=== PATIENT | female | born 1975 | race Caucasian/White ===

== ENCOUNTER → 2017-04-08 | Outpatient (CLI) | payer OTHER ==
[~2017-04-08] MED LIST: ERGO1CAP35 PO; PROP80CA PO; SUMA100T16 PO; TOPI25TA10 PO
--- NOTE | 2017-04-08 10:36 | DIAGNOSTIC IMAGING REPORT ---
MRI OF THE BRAIN WITHOUT CONTRAST CLINICAL HISTORY: Chronic headaches COMPARISON STUDY: None. FINDINGS: Sagittal T1, axial diffusion, proton density and T2 weighted axial, coronal FLAIR, and axial T1-weighted images were acquired. No intra or extra-axial mass lesions are visualized Axial diffusion-weighted images reveal no evidence of acute or subacute infarction. There is no evidence of ventricular dilatation. Proton density T2-weighted and FLAIR images reveal a few punctate foci of increased signal within the white matter. This finding has been reported in patients with chronic headaches. There are no abnormal flow voids. IMPRESSION: With the exception of a few punctate foci of increased T2 and FLAIR signal within the white matter, no abnormalities are identified. Electronically signed by: Jose Maria Perez M.D. 04/08/2017 10:34 AM Dictated Date/Time: 04/08/2017 10:32 AM
== END | disposition home or self-care (01) ==
LOC: C.MRIBC 09:36
PROVIDERS: ATTEND Physician Assistant
DX: R05 Cough (principal)

== ENCOUNTER → 2017-06-09 | Outpatient (CLI) | payer OTHER ==
--- NOTE | 2017-06-09 15:20 | DIAGNOSTIC IMAGING REPORT ---
LEFT UPPER EXT JOINT WITHOUT CLINICAL HISTORY: PAIN IN L SHOULDER pain TECHNIQUE: Multiaxial MRI acquisition COMPARISON STUDY: None FINDINGS: Signal characteristics of the osseous structures are unremarkable throughout. Mild degenerative change of the articular services of the glenohumeral joint. Moderate tendinitis of the supraspinatus with evidence for a small partial tear at its anterior margin. No evidence for full-thickness rotator cuff tear. The infraspinatus and subscapularis tendons are unremarkable. Biceps tendon is intact. No abnormality of the glenoid labrum. IMPRESSION: 1. Mild supraspinatus tendinitis with a small partial thickness tear at its anterior margin. 2. No evidence for full-thickness rotator cuff tear. 3. Mild degenerative change articular services the glenohumeral joint. The above report was generated using voice recognition software. It may contain grammatical, syntax or spelling errors. Electronically signed by: Horacio Blackman M.D. 06/09/2017 3:19 PM Dictated Date/Time: 06/09/2017 3:15 PM
== END | disposition home or self-care (01) ==
LOC: C.MRI 13:54
PROVIDERS: ATTEND Family Medicine Sports Medicine
DX: M25.512 Pain in left shoulder (principal)

== ENCOUNTER → 2017-08-18 | Outpatient (CLI) | payer OTHER ==
[~2017-08-18] MED LIST changes: -ERGO1CAP35 PO
--- NOTE | 2017-08-18 16:53 | DIAGNOSTIC IMAGING REPORT ---
MRI THE RIGHT HIP NO CONTRAST CLINICAL HISTORY: Persistent right hip pain COMPARISON STUDY: 10/06/2015 FINDINGS: Imaging was performed in the sagittal, coronal, and axial planes. There are no areas of marrow replacement to indicate neoplasm. There are postsurgical changes of a lumbar spinal fusion. There is a new focus of subchondral marrow edema involving the right humeral head, consistent with a small focus of avascular necrosis. There is mild right hip cartilaginous thinning. There is no evidence of pathologic adenopathy. There are bilateral hemorrhagic ovarian follicles. There is no evidence of pathologic muscular edema. 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 Electronically signed by: Jose Maria Perez M.D. 08/18/2017 4:52 PM Dictated Date/Time: 08/18/2017 4:48 PM
== END | disposition home or self-care (01) ==
LOC: C.MRIBC 15:48
PROVIDERS: ATTEND Orthopaedic Surgery Sports Medicine
DX: M25.551 Pain in right hip (principal); M87.051 Idiopathic aseptic necrosis of right femur

== ENCOUNTER → 2018-05-23 | Outpatient (CLI) | payer OTHER ==
[~2018-05-23] MED LIST changes: +ADAL40KI SQ
--- NOTE | 2018-05-23 18:28 | DIAGNOSTIC IMAGING REPORT ---
L-SPINE FLEX/EXT BENDING MIN 6 HISTORY: 42 years-old Female LUMBO SACRAL SPINE acute low back pain with recent swelling injury COMPARISON: CT abdomen and pelvis 05/13/2016 TECHNIQUE: 6 views of the lumbar spine with flexion and extension. FINDINGS: There are 5 nonrib-bearing lumbar type vertebral segments present. No spondylolysis or spondylolisthesis. Prior laminectomy with discectomy and posterior interbody leander and screw fusion at L5-S1. No evidence of hardware complication. Minimal multilevel spondylitic spurring with mild facet arthrosis. No significant intervertebral disc space narrowing. There is unchanged satisfactory alignment in neutral, flexion and extension positioning. Moderate formed colonic stool and some densely noted. IMPRESSION: 1. No acute fracture or subluxation. 2. Prior laminectomy with discectomy and posterior interbody leander and screw fusion at L5-S1. 3. Satisfactory alignment seen in neutral, flexion and extension views. The above report was generated using voice recognition software. It may contain grammatical, syntax or spelling errors. Electronically signed by: Jr Sims M.D. 05/23/2018 6:27 PM Dictated Date/Time: 05/23/2018 6:24 PM
== END | disposition home or self-care (01) ==
LOC: C.RADBC 16:08
PROVIDERS: ATTEND Physician Assistant
DX: M54.5 Low back pain (principal); Z98.1 Arthrodesis status

== ENCOUNTER 2020-02-26 13:25 | Observation (INO) ==
[2020-02-26] MEDS ORDERED: ALBUT/IPRATROP 3MG/0.5MG NEB 3 ML VIAL NEB STA ×2 (14:09→16:45)
[2020-02-26] MEDS ORDERED: GI COCKTAIL ED USE PO ONE (14:12)
[2020-02-26] MEDS ORDERED: FAMOTIDINE 20MG/5ML IV PUSH IV STA (14:12)
--- NOTE | 2020-02-26 14:50 | Electrocardiogram Report ---
Test Reason : Blood Pressure : / mmHG Vent. Rate : 070 BPM Atrial Rate : 070 BPM P-R Int : 142 ms QRS Dur : 078 ms QT Int : 394 ms P-R-T Axes : 054 046 031 degrees QTc Int : 425 ms Poor data quality, interpretation may be adversely affected Normal sinus rhythm Abnormal ECG When compared with ECG of 12-MAR-2015 11:06, No significant change was found Confirmed by Ford Shaw ([id number]) on 02/26/2020 2:50:01 PM Referred By: Confirmed By:Ford Shaw
[2020-02-26 15:04] LABS: Basophils # (auto) 0.01 K/uL (0-0.2); Basophils % (auto) 0.1 %; Hematocrit (blood only) 41.8 % (37-47); Hemoglobin 14.5 g/dL (12.0-16.0); Immature Granulocytes # (auto) 0.03 K/uL (0.00-0.02); Immature Granulocytes % (auto) 0.3 %; Lymphocytes # (auto) 0.99 K/uL (1.2-3.4); Lymphocytes % (auto) 10.7 %; Mean Corpuscular Hemoglobin 31.5 pg (25-34); Mean Corpuscular Hgb Conc 34.7 g/dL (32-36); Mean Corpuscular Volume 90.9 fL (80-100); Monocytes # (auto) 0.11 K/uL (0.11-0.59); Monocytes % (auto) 1.2 %; Neutrophils # (auto) 8.12 K/uL (1.4-6.5); Neutrophils % (auto) 87.7 %; Platelet Count 241 K/uL (130-400); RDW Coefficient of Variation 13.5 % (11.5-14.5); RDW Standard Deviation 44.7 fL (36.4-46.3); White Blood Count 9.26 K/uL (4.8-10.8)
--- NOTE | 2020-02-26 15:09 | Emergency Department Note ---
History of Present Illness General Chief complaint: Shortness of Breath/Dyspnea Stated complaint: FEVER,SOB,COUGH Time Seen by Provider: 02/26/20 13:29 Source: patient Mode of arrival: ambulatory Limitations: no limitations History of Present Illness Provider complaint: sob, wheezing Onset (ago): day(s) 5 Pain Consistency: + colicky Maximum Pain Intensity: 3 Exacerbated By: + movement and + rest Associated symptoms: + cough and + shortness of breath; no chest pain, no fever/chills, no loss of appetite, no nausea/vomiting and no syncope Treatments prior to arrival: none This is a 44-year-old female with a history of ankylosing spondylitis who presents complaining of increased shortness of breath and wheezing. Patient states she initially began having mild upper respiratory symptoms 7 weeks ago. She states at that time she was tested for coronavirus and was negative. She states in the interim her symptoms have fluctuated. At times she would feel more flulike, at other times she had a sore throat and cough. Patient states mostly her cough has been nonproductive. Patient states when she talked to her family doctor last week due to the persistence of her symptoms they decided to start her on steroids and Tessalon Perles. When she called to follow-up with them today and told them that since starting those medications last week she has felt worse, they sent her for an outpatient chest x-ray and then advised her to come to the ER. Review of the outpatient chest x-ray that was in system was unremarkable. No evidence of effusions or infiltrate. Patient states there have been no other changes in her medications. No prior history of asthma and patient is not a smoker. Pt seen during a time of high acuity and national emergency pandemic while wearing PPE. Home Medications Home Medications Medication Instructions Recorded Confirmed Type adalimumab 40 mg/0.4 mL 40 mg SQ Q14D 07/11/18 02/26/20 History subcutaneous syringe kit ondansetron 4 mg disintegrating 4 mg PO BID PRN #30 tab 11/12/19 02/26/20 Rx tablet fremanezumab-vfrm 225 mg/1.5 mL 225 mg SQ .COMPLEX 30 Days #1.5 ml 02/18/20 02/26/20 Rx subcutaneous syringe propranolol 80 mg capsule,24 80 mg PO DAILY #30 cap 02/18/20 02/26/20 Rx hr,extended release topiramate 50 mg tablet 50 mg PO .COMPLEX 30 Days #90 tab 02/18/20 02/26/20 Rx zolmitriptan 5 mg nasal spray 1 sprays INTNAS Q2H PRN #6 ea 02/18/20 02/26/20 Rx benzonatate 100 mg PO TID PRN 02/26/20 02/26/20 History prednisone 40 mg PO DAILY 02/26/20 02/26/20 History Allergies Allergy/AdvReac Type Severity Reaction Status Date / Time citalopram [From Celexa] Allergy Unknown Unknown Verified 02/26/20 23:11 indomethacin Allergy Unknown RASH Verified 02/26/20 14:29 hydrocodone AdvReac Intermediate NEUROTIC Verified 02/26/20 14:29 procaine AdvReac Unknown SEVERE N/V Verified 02/26/20 14:29 tramadol AdvReac Unknown neurotic Verified 02/26/20 14:29 Past Med/Surg History Medical History (Updated 02/28/20 @ 04:07 by Lesli Jimenez DO) Ankylosing spondylitis (Chronic) Cauda equina syndrome (Resolved) Lumbar disc herniation (Acute) Lumbar radicular pain (Chronic) Migraine (Chronic) Surgical History (Updated 02/26/20 @ 18:49 by Giles Barnes) H/O rotator cuff surgery History of lumbosacral spine surgery (Chronic) Status post hip surgery right Family History (Updated 02/26/20 @ 18:50 by Giles Barnes) Father , age 50 Lung cancer Mother COPD (chronic obstructive pulmonary disease) Diabetes Denies family history of Asthma Social History (Updated 02/26/20 @ 18:51 by Giles Barnes) Preferred Language: Serbian Communication Ability: Effective Beliefs That Will Affect Care: None marital status: Current Living Situation: Spouse and Family current occupational 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 Other Information That Helps Us Care for You: No other: 2 kids Feels Safe at Home: Yes Safety Concerns: Feels Safe At This Time Smoking Status: Never smoker Hx Alcohol Use: No Hx Substance Use: No Review of Systems See HPI for pertinent positives & negatives. and A total of 10 systems reviewed and were otherwise negative Physical Exam Vital Signs Vital Signs - 24 hr 02/26/20 19:00 Pulse Rate 67 Pulse Rate from SpO2 Sensor 68 Respiratory Rate 20 Blood Pressure 112/83 Blood Pressure Mean 89 Pulse Oximetry 98 GENERAL: alert, well appearing, well nourished, no distress, non-toxic EARS: TMs clear bilaterally, no edema along the canals EYE EXAM: normal conjunctiva, PERRL and EOM's grossly intact OROPHARYNX: no exudate, no erythema, lips, buccal mucosa, and tongue normal and mucous membranes are moist NECK: supple, no nuchal rigidity, no adenopathy, non-tender LUNGS: Clear to auscultation. Normal chest wall mechanics, no w/r/r HEART: no murmurs, S1 normal and S2 normal ABDOMEN: abdomen soft, non-tender, normo-active bowel sounds, no masses, no rebound or guarding. BACK: Back is symmetrical on inspection and there is no deformity, no midline tenderness, no CVA tenderness. SKIN: no rashes and no bruising UPPER EXTREMITIES: upper extremities are grossly normal. FROM, nml pulses b/l. LOWER EXTREMITIES: No pitting edema. FROM, nml pulses b/l. NEURO EXAM: Normal sensorium, cranial nerves II-XII grossly intact, normal speech, no facial droop, no gross weakness of arms, no gross weakness of legs. No ataxia, normal gait. Gross sensation intact. Course Course 152: Patient updated on results. Patient states she still feels short of breath, and as though she is wheezing. 1741: Patient states still feeling short of breath despite second nebulizer treatment. IV fluids added as patient states she has not had much to eat or drink today, and I suspect her slightly low blood pressure is also in part due to the magnesium given. Patient is uncomfortable going home given persistent sense of shortness of breath despite negative evaluation so far. 174: Case discussed with Dr. Barnes [facility] hospitalist service. Administered Medications Albuterol (Ventolin Hfa) 2 puffs INH Q4R BLACK Stop: 03/27/20 22:59 Last Admin: 02/27/20 11:23 Dose: 2 puffs Documented by: [id number] Admin: 02/27/20 07:04 Dose: 2 puffs Documented by: [id number] Admin: 02/27/20 03:31 Dose: 2 puffs Documented by: [id number] Admin: 02/26/20 23:19 Dose: 2 puffs Documented by: [id number] Benzonatate (Tessalon Perle) 100 mg PO TID BLACK Stop: 03/27/20 20:59 Last Admin: 02/27/20 19:48 Dose: 100 mg Documented by: [id number] Admin: 02/27/20 14:40 Dose: 100 mg Documented by: [id number] Admin: 02/27/20 08:10 Dose: 100 mg Documented by: [id number] Admin: 02/26/20 21:42 Dose: 100 mg Documented by: [id number] Cefdinir (Omnicef Cap) 300 mg PO BID BLACK Stop: 03/07/20 21:14 Last Admin: 02/27/20 19:48 Dose: 300 mg Documented by: [id number] Admin: 02/27/20 08:11 Dose: 300 mg Documented by: [id number] Admin: 02/26/20 21:42 Dose: 300 mg Documented by: [id number] Enoxaparin Sodium (Lovenox) 40 mg SQ Q24H [facility] Stop: 03/27/20 20:31 Last Admin: 02/27/20 19:47 Dose: 40 mg Documented by: [id number] Admin: 02/26/20 21:42 Dose: 40 mg Documented by: [id number] Miscellaneous (Order Awaiting Action) 1 ea N/A QS [facility] Stop: 03/28/20 00:00 Last Admin: 02/28/20 00:46 Dose: Not Given Documented by: [id number] Admin: 02/27/20 14:40 Dose: Not Given Documented by: [id number] Admin: 02/27/20 08:10 Dose: Not Given Documented by: [id number] Admin: 02/26/20 23:30 Dose: Not Given Documented by: [id number] Propranolol HCl (Inderal La) 80 mg PO DAILY BLACK Stop: 03/28/20 08:59 Last Admin: 02/27/20 08:11 Dose: 80 mg Documented by: [id number] Sucralfate (Carafate) 1 gm PO QID BLACK Stop: 03/28/20 16:59 Last Admin: 02/27/20 19:51 Dose: 1 gm Documented by: [id number] Admin: 02/27/20 16:46 Dose: 1 gm Documented by: [id number] Topiramate (Topamax) 50 mg PO DAILY [facility] Stop: 03/28/20 08:59 Last Admin: 02/27/20 08:11 Dose: 50 mg Documented by: [id number] Topiramate (Topamax) 100 mg PO HS BLACK Stop: 03/27/20 20:59 Last Admin: 02/27/20 19:49 Dose: 100 mg Documented by: [id number] Admin: 02/26/20 21:42 Dose: 100 mg Documented by: [id number] Discontinued Medications Al Hydrox/Mg Hydrox/Simethicone () 1 dose PO ONE ONE Stop: 02/26/20 14:13 Last Admin: 02/26/20 14:43 Dose: 1 dose Documented by: [id number] Albuterol (Duoneb) 3 ml NEB NOW STA Stop: 02/26/20 14:10 Last Admin: 02/26/20 14:36 Dose: 3 ml Documented by: [id number] Albuterol (Duoneb) 3 ml NEB NOW STA Stop: 02/26/20 16:46 Last Admin: 02/26/20 17:08 Dose: 3 ml Documented by: [id number] Famotidine (Pepcid 20mg Iv Push) 20 mg IV ONE STA Stop: 02/26/20 14:13 Last Admin: 02/26/20 14:43 Dose: 20 mg Documented by: [id number] Guaifenesin/Codeine Phosphate (Robitussin-Ac Sugar Free) 5 ml PO Q6H PRN PRN Reason: Cough Stop: 03/27/20 20:31 Last Admin: 02/27/20 11:37 Dose: 5 ml Documented by: [id number] Admin: 02/27/20 03:48 Dose: 5 ml Documented by: [id number] Admin: 02/26/20 21:42 Dose: 5 ml Documented by: [id number] Guaifenesin/Codeine Phosphate (Robitussin-Ac Sugar Free) 10 ml PO Q6H PRN PRN Reason: Cough Stop: 03/27/20 20:31 Last Admin: 02/27/20 16:46 Dose: 10 ml Documented by: [id number] Magnesium Sulfate/Dextrose (Magnesium Sulfate / D5w) 1 gm in 100 mls @ 100 mls/hr IV ONE ONE Stop: 02/26/20 17:44 Last Infusion: 02/26/20 18:13 Dose: 0 mls/hr Documented by: [id number] Admin: 02/26/20 17:07 Dose: 100 mls/hr Documented by: [id number] Medical Decision Making Differential Diagnosis Differential diagnoses includes but is not limited to pneumonia, bronchitis, COPD/Asthma exacerbation, pneumothorax, pulmonary embolism, congestive heart failure, acute coronary syndrome Medical Records Attestation: I reviewed the patient's medical records. Home Medications Current Medication List: was personally reviewed by me Laboratory Data Attestation: I reviewed the patient's lab results. Result diagrams: 02/26/20 14:35 02/26/20 14:35 Lab Results 02/26/20 02/26/20 02/26/20 Range/Units 14:35 14:35 14:35 WBC 9.26 (4.8-10.8) K/uL RBC 4.60 (4.2-5.4) M/uL Hgb 14.5 (12.0-16.0) g/dL Hct 41.8 (37-47) % MCV 90.9 (80-100) fL MCH 31.5 (25-34) pg MCHC 34.7 (32-36) g/dL RDW Std Deviation 44.7 (36.4-46.3) fL RDW Coeff of Tracy 13.5 (11.5-14.5) % Plt Count 241 (130-400) K/uL MPV 10.0 (7.4-10.4) fL Immature Gran % (Auto) 0.3 % Neut % (Auto) 87.7 % Lymph % (Auto) 10.7 % [place] % (Auto) 1.2 % Eos % (Auto) 0.0 % Baso % (Auto) 0.1 % Immature Gran # (Auto) 0.03 H (0.00-0.02) K/uL Neut # (Auto) 8.12 H (1.4-6.5) K/uL Lymph # (Auto) 0.99 L (1.2-3.4) K/uL [place] # (Auto) 0.11 (0.11-0.59) K/uL Eos # (Auto) 0.00 (0-0.5) K/uL Baso # (Auto) 0.01 (0-0.2) K/uL D-Dimer 360 (0-500) ug/L FEU Sodium 139 (136-145) mmol/L Potassium 3.8 (3.5-5.1) mmol/L Chloride 112 H (98-107) mmol/L Carbon Dioxide 18 L (21-32) mmol/L Anion Gap 10.0 (3-11) BUN 21 H (7-18) mg/dl Creatinine 0.76 (0.6-1.2) mg/dl Est Cr Clr Drug Dosing 108.7 ml/min Est GFR ( Amer) 111.4 Est GFR (Non-Af Amer) 96.1 BUN/Creatinine Ratio 27.9 H (10-20) Glucose 118 H (70-99) mg/dl Calcium 8.7 (8.5-10.1) mg/dl Magnesium 2.2 (1.8-2.4) mg/dl Total Bilirubin 0.3 (0.2-1) mg/dl AST 18 (15-37) U/L ALT 35 (12-78) U/L Alkaline Phosphatase 80 (45-117) U/L Troponin I < 0.015 (0-0.045) ng/ml C-Reactive Protein < 0.29 (0-0.29) mg/dl NT-Pro-B Natriuret Pep 120 (0-450) pg/ml Total Protein 7.7 (6.4-8.2) gm/dl Albumin 4.0 (3.4-5.0) gm/dl Globulin 3.7 (2.5-4.0) gm/dl Albumin/Globulin Ratio 1.1 (0.9-2) Lipase 99 (73-393) U/L HCG, Qual (Negative) Adenovirus (PCR) (NotDetected) B. pertussis DNA (PCR) (NotDetected) B.parapertussis DNA PCR (NotDetected) C. pneumoniae DNA (PCR) (NotDetected) Coronavirus OC43 (PCR) (NotDetected) Coronavirus HKU1 (PCR) (NotDetected) Coronavirus 229E (PCR) (NotDetected) Coronavirus NL63 (PCR) (NotDetected) Human Metapneumovir PCR (NotDetected) Influenza Type A (PCR) (NotDetected) Influenza Type B (PCR) (NotDetected) M. pneumoniae (PCR) (NotDetected) Parainfluenza 1 (PCR) (NotDetected) Parainfluenza 2 (PCR) (NotDetected) Parainfluenza 3 (PCR) (NotDetected) Parainfluenza 4 (PCR) (NotDetected) RSV (PCR) (NotDetected) Entero/Rhino (PCR) (NotDetected) 02/26/20 02/26/20 Range/Units 14:35 14:55 WBC (4.8-10.8) K/uL RBC (4.2-5.4) M/uL Hgb (12.0-16.0) g/dL Hct (37-47) % MCV (80-100) fL MCH (25-34) pg MCHC (32-36) g/dL RDW Std Deviation (36.4-46.3) fL RDW Coeff of Tracy (11.5-14.5) % Plt Count (130-400) K/uL MPV (7.4-10.4) fL Immature Gran % (Auto) % Neut % (Auto) % Lymph % (Auto) % [place] % (Auto) % Eos % (Auto) % Baso % (Auto) % Immature Gran # (Auto) (0.00-0.02) K/uL Neut # (Auto) (1.4-6.5) K/uL Lymph # (Auto) (1.2-3.4) K/uL [place] # (Auto) (0.11-0.59) K/uL Eos # (Auto) (0-0.5) K/uL Baso # (Auto) (0-0.2) K/uL D-Dimer (0-500) ug/L FEU Sodium (136-145) mmol/L Potassium (3.5-5.1) mmol/L Chloride (98-107) mmol/L Carbon Dioxide (21-32) mmol/L Anion Gap (3-11) BUN (7-18) mg/dl Creatinine (0.6-1.2) mg/dl Est Cr Clr Drug Dosing ml/min Est GFR ( Amer) Est GFR (Non-Af Amer) BUN/Creatinine Ratio (10-20) Glucose (70-99) mg/dl Calcium (8.5-10.1) mg/dl Magnesium (1.8-2.4) mg/dl Total Bilirubin (0.2-1) mg/dl AST (15-37) U/L ALT (12-78) U/L Alkaline Phosphatase (45-117) U/L Troponin I (0-0.045) ng/ml C-Reactive Protein (0-0.29) mg/dl NT-Pro-B Natriuret Pep (0-450) pg/ml Total Protein (6.4-8.2) gm/dl Albumin (3.4-5.0) gm/dl Globulin (2.5-4.0) gm/dl Albumin/Globulin Ratio (0.9-2) Lipase (73-393) U/L HCG, Qual Negative (Negative) Adenovirus (PCR) Not Detected (NotDetected) B. pertussis DNA (PCR) Not Detected (NotDetected) B.parapertussis DNA PCR Not Detected (NotDetected) C. pneumoniae DNA (PCR) Not Detected (NotDetected) Coronavirus OC43 (PCR) Not Detected (NotDetected) Coronavirus HKU1 (PCR) Not Detected (NotDetected) Coronavirus 229E (PCR) Not Detected (NotDetected) Coronavirus NL63 (PCR) Not Detected (NotDetected) Human Metapneumovir PCR Not Detected (NotDetected) Influenza Type A (PCR) Not Detected (NotDetected) Influenza Type B (PCR) Not Detected (NotDetected) M. pneumoniae (PCR) Not Detected (NotDetected) Parainfluenza 1 (PCR) Not Detected (NotDetected) Parainfluenza 2 (PCR) Not Detected (NotDetected) Parainfluenza 3 (PCR) Not Detected (NotDetected) Parainfluenza 4 (PCR) Not Detected (NotDetected) RSV (PCR) Not Detected (NotDetected) Entero/Rhino (PCR) Not Detected (NotDetected) MDM Narrative An order was placed for continuous cardiac monitoring. The monitor shows a rate of 70 with normal sinus rhythm. Patient presents complaining of worsening shortness of breath over the last 6 to 7 weeks despite outpatient treatments and negative coronavirus testing. Unfortunately patient does have a history of ankylosing spondylitis and takes Humira injections. Patient also had recent steroids. In light of this I am concerned for any but atypical presentation of infection or fungal infection due to her immunocompromised status. Patient had minimal improvement with use of nebulizer treatments here. Patient's other labs reassuring. I did review the outpatient chest x-ray which was read by radiology as no acute process, no evidence of infiltrate or effusion. Patient was made aware of all results. Due to my concern to discuss case with the hospitalist who was in agreement and evaluated the patient at bedside. Patient was hemodynamically stable throughout. Patient had no improvement with possible GI medications for component of potentially GERD in addition contributing to her bronchospasm and cough. Patient is otherwise fully vaccinated. Bio fire and repeat coronavirus testing also sent as a precaution due to the current pandemic. Patient was made aware of all results and in agreement with plan. Impression & Plan Dyspnea, Cough Discharge Plan Visit Data *Final* Discharge Date/Time: 02/26/20 20:05 Chief Complaint: Shortness of Breath/Dyspnea Stated Complaint: FEVER,SOB,COUGH ED Provider: Lesli Jimenez Discharge Problem: Dyspnea, Cough Patient Disposition: Admitted As Inpatient Condition: Fair Discharge Instructions Interventions: ED Discharge Assessment Last Done: 02/26/20 20:05 Discharge Problem: Dyspnea Qualifiers: Dyspnea type: shortness of breath Qualified Code(s): R06.02 - Shortness of breath
[2020-02-26 15:17] LABS: D Dimer 360 ug/L FEU (0-500)
[2020-02-26 15:26] LABS: Alanine Aminotransferase 35 U/L (12-78); Aspartate Aminotransferase 18 U/L (15-37); BUN Creatinine Ratio 27.9 (10-20); Blood Urea Nitrogen 21 mg/dl (7-18); C Reactive Protein < 0.29 mg/dl (0-0.29); Calcium 8.7 mg/dl (8.5-10.1); Carbon Dioxide 18 mmol/L (21-32); Chloride 112 mmol/L (98-107); Creatinine Clr Calc Pharmacy 108.7 ml/min; Est GFR (African American) 111.4; Est GFR (Non-African American) 96.1; Glucose 118 mg/dl (70-99); Lipase 99 U/L (73-393); Magnesium 2.2 mg/dl (1.8-2.4); Potassium 3.8 mmol/L (3.5-5.1); Sodium 139 mmol/L (136-145)
[2020-02-26 15:29] LABS: Albumin Globulin Ratio 1.1 (0.9-2); Alkaline Phosphatase 80 U/L (45-117); Bilirubin,Total 0.3 mg/dl (0.2-1); Globulin 3.7 gm/dl (2.5-4.0); NT Pro B Type Natriuretic Pept 120 pg/ml (0-450); Total Protein 7.7 gm/dl (6.4-8.2); Troponin I < 0.015 ng/ml (0-0.045)
[2020-02-26 15:31] LABS: Pregnancy Test, Serum Negative (Negative)
[2020-02-26 16:00] LABS: Adenovirus PCR Not Detected (NotDetected); Coronavirus 229E PCR Not Detected (NotDetected); Coronavirus HKU1 PCR Not Detected (NotDetected); Coronavirus NL63 PCR Not Detected (NotDetected); Coronavirus OC43PCR Not Detected (NotDetected); Human Metapneumovirus PCR Not Detected (NotDetected); Influenza A PCR Not Detected (NotDetected); Influenza B PCR Not Detected (NotDetected); Rhinovirus/Enterovirus PCR Not Detected (NotDetected)
[2020-02-26 16:01] LABS: Bordetella parapertussis PCR Not Detected (NotDetected); Bordetella pertussis PCR Not Detected (NotDetected); Chlamydia pneumoniae PCR Not Detected (NotDetected); Mycoplasma pneumoniae PCR Not Detected (NotDetected); Parainfluenza Virus 1 PCR Not Detected (NotDetected); Parainfluenza Virus 2 PCR Not Detected (NotDetected); Parainfluenza Virus 3 PCR Not Detected (NotDetected); Parainfluenza Virus 4 PCR Not Detected (NotDetected); Respiratory Syncytial VirusPCR Not Detected (NotDetected)
[2020-02-26] MEDS ORDERED: MAGNESIUM SULFATE / D5W 1 GM/100 ML BAG IV ONE (16:45)
--- NOTE | 2020-02-26 18:37 | History & Physical Report ---
Date of Service February 26, 2020 Assessment & Plan (1) Dyspnea: The patient has had cough for 6+ weeks. It has been unresponsive to numerous OTC meds, prednisone, allergy meds, GERD medication, etc. She has not had associated fever during any portion of her illness. Previous COVID-19 testing in December was negative. She has been at home over the last month except for 1 visit to the local grocery store and none of her family has been sick. She now has dyspnea particularly with exertion along with wheezing. She had minimal response to bronchodilators in the ER. Today - cxr, biofire respiratory panel, cbc, crp, EKG, and other labs are all normal. Some of the features of her cough suggest pertussis but this was negative on biofire testing. Sinusitis causing cough? laryngotracheobronchitis with persistent cough? inflammatory lung disease? allergic disease (but no response to prednisone, antihistamines, flonase, etc)? non-pulmonary based disease (GERD,etc)? vocal cord dysfunction (but no stridor or inspiratory symptoms)? atypical infection (fungal, etc - in light of biological agent use)? other? COVID-19 testing was sent by ER; will need to place in isolation while awaiting testing. Other plans - * codeine cough syrup prn * tessalon TID scheduled * if sinusitis - cefdinir 300mg BID, first dose now * defer on additional steroids since 5+ days of such was not effective * ventolin HFA 2 puffs q4h * check peak flow to confirm obstruction * chest CT w/o contrast - r/o interstitial processes, atypical infection, etc * consider sinus CT * consider pulmonary consultation doubt PE - defer on PE protocol CT for now (2) Ankylosing spondylitis: on biologic agent chronically for such controlled (3) Migraine: controlled cont home meds (4) DVT prophylaxis: lovenox daily place on observation status History of Present Illness Chief Complaint: shortness of breath Primary Care Provider: Emma Henderson 44yo female with history of ankylosing spondylitis who presents with persistent cough for 7 weeks. History goes back to early December when she and her went on a cruise. The cruise ultimately docked in [facility]. During the cruise she developed a severe sore throat with conjunctivitis. She had no fever then. 10yo daughter was also sick with fatigue, sore throat, etc. She and her daughter were both tested for COVID-19 in late December - both negative. Shortly after the cruise her sore throat ended and a cough began. She has had a cough ever since. She has had persistent wheezing as well. Cough is dry; no sputum production. She has to clear her throat frequently. Late last week she was placed on prednisone for her cough. About this time she began to have shortness of breath and hoarse voice. She has had to prop herself up on pillows at night to help with shortness of breath. She does not feel the prednisone helped her symptoms - in fact she feels worse on steroids. No chest pain. No chest tightness. No antibiotics. Has used claritin and flonase for several weeks without relief of symptoms. Taking prilosec OTC - thinking cough was reflux - but this has not helped her symptoms. Had albuterol nebs in the ER x 2 - helped for 10 minutes then symptoms quickly returned. Allergies Allergy/AdvReac Type Severity Reaction Status Date / Time indomethacin Allergy Unknown RASH Verified 02/26/20 14:29 hydrocodone AdvReac Intermediate NEUROTIC Verified 02/26/20 14:29 procaine AdvReac Unknown SEVERE N/V Verified 02/26/20 14:29 tramadol AdvReac Unknown neurotic Verified 02/26/20 14:29 CeleXA TABS Allergy Unknown Unknown Uncoded 02/26/20 14:29 Home Medications Home Medications Medication Instructions Recorded Confirmed Type adalimumab 40 mg/0.4 mL 40 mg SQ Q14D 07/11/18 02/26/20 History subcutaneous syringe kit ondansetron 4 mg disintegrating 4 mg PO BID PRN #30 tab 11/12/19 02/26/20 Rx tablet fremanezumab-vfrm 225 mg/1.5 mL 225 mg SQ .COMPLEX 30 Days #1.5 ml 02/18/20 02/26/20 Rx subcutaneous syringe propranolol 80 mg capsule,24 80 mg PO DAILY #30 cap 02/18/20 02/26/20 Rx hr,extended release topiramate 50 mg tablet 50 mg PO .COMPLEX 30 Days #90 tab 02/18/20 02/26/20 Rx zolmitriptan 5 mg nasal spray 1 sprays INTNAS Q2H PRN #6 ea 02/18/20 02/26/20 Rx benzonatate 100 mg PO TID PRN 02/26/20 02/26/20 History prednisone 40 mg PO DAILY 02/26/20 02/26/20 History Past Med/Surg History Medical History (Updated 02/26/20 @ 21:13 by Giles Barnes) Ankylosing spondylitis (Chronic) Cauda equina syndrome (Resolved) Lumbar disc herniation (Acute) Lumbar radicular pain (Chronic) Migraine (Chronic) Surgical History (Updated 02/26/20 @ 18:49 by Giles Barnes) H/O rotator cuff surgery History of lumbosacral spine surgery (Chronic) Status post hip surgery right Family History (Updated 02/26/20 @ 18:50 by Giles Barnes) Father , age 50 Lung cancer Mother COPD (chronic obstructive pulmonary disease) Diabetes Denies family history of Asthma Social History (Updated 02/26/20 @ 18:51 by Giles Barnes) Preferred Language: Malay Communication Ability: Effective Beliefs That Will Affect Care: None marital status: Current Living Situation: Spouse and Family current occupational 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 Other Information That Helps Us Care for You: No other: 2 kids Feels Safe at Home: Yes Safety Concerns: Feels Safe At This Time Smoking Status: Never smoker Hx Alcohol Use: No Hx Substance Use: No Review of Systems Constitutional: + fatigue, + malaise, + weakness and + anorexia; no fever, no chills and no weight loss Eyes: no discharge and no worsening vision Ear, Nose, Mouth, Throat: + sore throat and + hoarseness; no nasal discharge, no sinus pain/pressure and no dysphagia Respiratory: + cough, + dyspnea, + dyspnea on exertion and + wheezing; no hemoptysis Cardiovascular: + orthopnea; no chest pain, no paroxysmal nocturnal dyspnea and no edema Gastrointestinal: no abdominal pain, no nausea, no vomiting and no diarrhea/loose stools Genitourinary: no dysuria lmp - 3 weeks ago Musculoskeletal: no myalgia Integumentary: no rash Neurologic: no loss of sensation Psychiatric: no depression Endocrine: no diabetes Hematologic / Lymphatic: no easy bleeding and no easy bruising Allergy / Immunological: + throat swelling, + wheezing, + cough and + dyspnea; no itchy eyes Physical Exam Constitutional: + acute distress (constant coughing) and + ill appearing; no altered mental status Eyes: + eyelid abnormality (lower lids appear mildly swollen), + conjunctival abnormality (mildly injected ) and PERRL ENMT: external ear and nose normal, oropharynx normal Neck: trachea midline, no thyromegaly Respiratory: + cough; no respiratory distress Auscultation: + diminished lung sounds (bases, and expiratory phase) and + wheezes (end-exp); no crackles Cardiovascular: Rate/Rhythm: regular rate and regular rhythm Heart Sounds: normal S1 and normal S2; no murmur Vessels: posterior tibial pulses present and dorsalis pedis pulses present; no JVD Extremities: no edema Gastrointestinal (Abdomen): normal bowel sounds, soft, nontender, no hepatosplenomegaly Musculoskeletal: no cyanosis or clubbing, extremities motor strength 5/5 Skin: no rashes, warm and dry Neurologic: deep tendon reflexes 2+ bilaterally and moves all extremities Psychiatric: Orientation: alert and oriented x 3 Lymphatic: + cervical lymphadenopathy (1cm node on left - nontender ) Results & Data Results & Data ([facility]) Vital Signs (Past 12 Hours) Vital Signs Temp Pulse Pulse Resp BP BP Pulse Ox 02/26/20 17:48 70 18 100/82 98 02/26/20 17:21 70 21 98/82 L 97 02/26/20 17:20 68 20 100 02/26/20 17:10 71 17 02/26/20 17:00 73 32 H 98 02/26/20 16:50 75 26 H 98 02/26/20 16:40 78 17 99 02/26/20 16:30 67 21 98 02/26/20 16:20 68 22 98 02/26/20 16:10 66 26 H 98 02/26/20 16:00 76 19 98 02/26/20 15:50 76 25 H 99 02/26/20 15:40 68 22 98 02/26/20 15:30 69 68 24 145/90 H 97 02/26/20 15:20 68 26 H 98 02/26/20 15:10 68 12 02/26/20 15:00 72 96 02/26/20 14:50 75 98 02/26/20 14:41 66 28 H 99 02/26/20 14:36 65 20 97 02/26/20 14:16 63 22 154/102 H 99 02/26/20 13:35 36.9 C 77 16 144/118 H 97 Laboratory Results Laboratory Results - last 24 hr 02/26/20 02/26/20 02/26/20 14:35 14:35 14:35 WBC 9.26 RBC 4.60 Hgb 14.5 Hct 41.8 MCV 90.9 MCH 31.5 MCHC 34.7 RDW Std Deviation 44.7 RDW Coeff of Tracy 13.5 Plt Count 241 MPV 10.0 Immature Gran % (Auto) 0.3 Neut % (Auto) 87.7 Lymph % (Auto) 10.7 Zavala % (Auto) 1.2 Eos % (Auto) 0.0 Baso % (Auto) 0.1 Immature Gran # (Auto) 0.03 H Neut # (Auto) 8.12 H Lymph # (Auto) 0.99 L Zavala # (Auto) 0.11 Eos # (Auto) 0.00 Baso # (Auto) 0.01 D-Dimer 360 Sodium 139 Potassium 3.8 Chloride 112 H Carbon Dioxide 18 L Anion Gap 10.0 BUN 21 H Creatinine 0.76 Est Cr Clr Drug Dosing 108.7 Est GFR ( Amer) 111.4 Est GFR (Non-Af Amer) 96.1 BUN/Creatinine Ratio 27.9 H Glucose 118 H Calcium 8.7 Magnesium 2.2 Total Bilirubin 0.3 AST 18 ALT 35 Alkaline Phosphatase 80 Troponin I < 0.015 C-Reactive Protein < 0.29 NT-Pro-B Natriuret Pep 120 Total Protein 7.7 Albumin 4.0 Globulin 3.7 Albumin/Globulin Ratio 1.1 Lipase 99 HCG, Qual Adenovirus (PCR) B. pertussis DNA (PCR) B.parapertussis DNA PCR C. pneumoniae DNA (PCR) Coronavirus OC43 (PCR) Coronavirus HKU1 (PCR) Coronavirus 229E (PCR) Coronavirus NL63 (PCR) Human Metapneumovir PCR Influenza Type A (PCR) Influenza Type B (PCR) M. pneumoniae (PCR) Parainfluenza 1 (PCR) Parainfluenza 2 (PCR) Parainfluenza 3 (PCR) Parainfluenza 4 (PCR) RSV (PCR) Entero/Rhino (PCR) SARS-CoV-2 RNA (RT-PCR) 02/26/20 02/26/20 02/26/20 14:35 14:55 Unknown WBC RBC Hgb Hct MCV MCH MCHC RDW Std Deviation RDW Coeff of Tracy Plt Count MPV Immature Gran % (Auto) Neut % (Auto) Lymph % (Auto) Zavala % (Auto) Eos % (Auto) Baso % (Auto) Immature Gran # (Auto) Neut # (Auto) Lymph # (Auto) Zavala # (Auto) Eos # (Auto) Baso # (Auto) D-Dimer Sodium Potassium Chloride Carbon Dioxide Anion Gap BUN Creatinine Est Cr Clr Drug Dosing Est GFR ( Amer) Est GFR (Non-Af Amer) BUN/Creatinine Ratio Glucose Calcium Magnesium Total Bilirubin AST ALT Alkaline Phosphatase Troponin I C-Reactive Protein NT-Pro-B Natriuret Pep Total Protein Albumin Globulin Albumin/Globulin Ratio Lipase HCG, Qual Negative Adenovirus (PCR) Not Detected B. pertussis DNA (PCR) Not Detected B.parapertussis DNA PCR Not Detected C. pneumoniae DNA (PCR) Not Detected Coronavirus OC43 (PCR) Not Detected Coronavirus HKU1 (PCR) Not Detected Coronavirus 229E (PCR) Not Detected Coronavirus NL63 (PCR) Not Detected Human Metapneumovir PCR Not Detected Influenza Type A (PCR) Not Detected Influenza Type B (PCR) Not Detected M. pneumoniae (PCR) Not Detected Parainfluenza 1 (PCR) Not Detected Parainfluenza 2 (PCR) Not Detected Parainfluenza 3 (PCR) Not Detected Parainfluenza 4 (PCR) Not Detected RSV (PCR) Not Detected Entero/Rhino (PCR) Not Detected SARS-CoV-2 RNA (RT-PCR) Pending Diagnostic Findings cxr - no infiltrates EKG - my reading - NSR, no ST changes Code Status & VTE Plan Code Status full VTE Prophylaxis Plan VTE Prophylaxis will be ordered: Yes PG Care Time/CCT Total # of Minutes Spent Total Time Spent with Patient: Total time spent is greater than 50% in coordination of care (as documented) at patient's floor/unit and/or counseling patient: Coding Level of Care Code 15043 OBS Care - Level 3 Diagnoses Dyspnea R06.02 Dyspnea type: shortness of breath Ankylosing spondylitis M45.9 Ankylosing spondylitis location: unspecified site of spine Migraine G43.909 Migraine type: unspecified Status migrainosus presence: without status migrainosus Intractability: not intractable DVT prophylaxis Z29.9 (1) Dyspnea Dyspnea type: shortness of breath Qualified Code(s): R06.02 - Shortness of breath (2) Ankylosing spondylitis Ankylosing spondylitis location: unspecified site of spine Qualified Code(s): M45.9 - Ankylosing spondylitis of unspecified sites in spine (3) Migraine Migraine type: unspecified Status migrainosus presence: without status migrainosus Intractability: not intractable Qualified Code(s): G43.909 - Migraine, unspecified, not intractable, without status migrainosus
[2020-02-26] MEDS ORDERED: ONDANSETRON INJ 2 MG/ML 2 ML VIAL IV PRN (20:32)
[2020-02-26] MEDS ORDERED: ACETAMINOPHEN 325 MG TAB PO PRN (20:32)
[2020-02-26] MEDS: TOPIRAMATE 50 MG TAB PO SCH (21:42)
[2020-02-26] MEDS: BENZONATATE 100 MG CAPSULE PO SCH (21:42)
[2020-02-26] MEDS: ENOXAPARIN INJ 40 MG/0.4 ML SYR SQ SCH (21:42)
[2020-02-26] MEDS: CEFDINIR 300 MG CAP PO SCH (21:42)
[2020-02-26] MEDS: GUAIFENESIN/CODEINE 100MG/10MG 5ML UDC PO PRN (21:42)
[2020-02-26] MEDS: ALBUTEROL HFA 8 GM INHALER INH SCH (23:19)
[2020-02-27] MEDS: ALBUTEROL HFA 8 GM INHALER INH SCH ×3 (03:31→11:23)
[2020-02-27] MEDS: GUAIFENESIN/CODEINE 100MG/10MG 5ML UDC PO PRN ×2 (03:48→11:37)
--- NOTE | 2020-02-27 07:41 | Hospitalist Progress Note ---
Date of Service February 27, 2020 Assessment & Plan (1) Dyspnea: The patient has had cough for 6+ weeks. on biologic agent for ankylosing spondylitis Patient recently returned from a cruise January 05 traveling to [facility], however since that time she has been very careful about avoiding contact with anyone She most recently also said some construction in her home and has been exposed to some tiling and dust It has been unresponsive to numerous OTC meds, prednisone, allergy meds, GERD medication, etc. She has not had associated fever during any portion of her illness. Previous COVID-19 testing in December was negative repeat COVID testing is pending Patient feels bronchodilators exacerbate her symptoms on admission 02/26/20 - cxr, biofire respiratory panel, cbc, crp, EKG, and other labs are all normal. * Patient was initiated on cefdinir 300mg BID, and this continues * defer on additional steroids since 5+ days of such was not effective * Bronchodilators are held due to paroxysms or worsening of coughing afterwards * chest CT w/o contrast - r/o interstitial processes, atypical infection, etc has been delayed due to pending cover testing * Initiation on antitussives including Tessalon Perles hydrocodone and Phenergan Negative d-dimer excluding venous thromboembolic phenomena also going against this being possible COVID issue (2) Ankylosing spondylitis: on biologic agent chronically for such controlled (3) Migraine: controlled cont home meds (4) DVT prophylaxis: lovenox daily place on observation status Admission and Anticipated Discharge Date Admission Date: February 26, 2020 Subjective Patient has substantial coughing nonproductive although she is not protecting her cough and coughing on healthcare providers in the room. She feels breathless when she walks to the bathroom area of her room Review of Systems Review of Systems: Mild to moderate distress and fatigue with exertion no headache, blurry or double vision no speech or swallowing issues no chest pain, pressure or palpitations Dyspnea on exertion and nonproductive coughing which has paroxysms to the point of almost vomiting no abdominal pain, nausea, diarrhea or constipation no dysuria, hematuria or frequency no focal joint pain or swelling no back pain, CVA tenderness or radicular pain no bruising, bleeding or rashes no focal signs of weakness or numbness or altered sensation no complaints or anxiety or depression Physical Exam Physical Exam: The patient appeared well nourished and normally developed. Patient has mild to moderate distress with coughing paroxysms during my visit Vital signs as documented. Oropharynx is clear without erythema or exudates Head exam is normocephalic atraumatic no scleral icterus Neck is without JVD, thyromegaly, or carotid bruits. Lungs are clear to auscultation, no focal loss of breath sounds no coarse breath sounds no egophony Cardiac exam, Rhythm is regular.. No murmurs, rubs or gallops. Extremities are nonedematous and both pedal pulses are normal. Neurologic exam is alert and oriented, no focal loss of strength or sensation Skin is without bruises or rashes Psychologically is with anxiety regarding COVID her test is pending Results & Data Results & Data ([facility]) Vital Signs (Past 12 Hours) Vital Signs Temp Pulse Pulse Resp BP BP Pulse Ox 02/27/20 07:09 74 16 98 02/27/20 03:35 66 16 97 02/26/20 23:31 97.7 F 62 20 102/66 98 02/26/20 23:23 84 18 96 02/26/20 20:20 98.8 F 65 24 134/89 95 02/26/20 20:00 73 17 109/73 98 PG Care Time/CCT Total # of Minutes Spent Total Time Spent with Patient: Total time spent is greater than 50% in coordination of care (as documented) at patient's floor/unit and/or counseling patient: Coding Level of Care Code 07038 Subseq Hosp Care Lvl 3 Diagnoses Dyspnea R06.02 Dyspnea type: shortness of breath Ankylosing spondylitis M45.9 Ankylosing spondylitis location: unspecified site of spine Migraine G43.909 Intractability: not intractable Migraine type: unspecified Status migrainosus presence: without status migrainosus DVT prophylaxis Z29.9 (1) Dyspnea Dyspnea type: shortness of breath Qualified Code(s): R06.02 - Shortness of breath (2) Migraine Intractability: not intractable Migraine type: unspecified Status migrainosus presence: without status migrainosus Qualified Code(s): G43.909 - Migraine, unspecified, not intractable, without status migrainosus (3) Ankylosing spondylitis Ankylosing spondylitis location: unspecified site of spine Qualified Code(s): M45.9 - Ankylosing spondylitis of unspecified sites in spine
[2020-02-27] MEDS: BENZONATATE 100 MG CAPSULE PO SCH ×3 (08:10→19:48)
[2020-02-27] MEDS: PROPRANOLOL HCL LA 80 MG CAPCR PO SCH (08:11)
[2020-02-27] MEDS: TOPIRAMATE 50 MG TAB PO SCH ×2 (08:11→19:49)
[2020-02-27] MEDS: CEFDINIR 300 MG CAP PO SCH ×2 (08:11→19:48)
[2020-02-27] MEDS ORDERED: PROMETHAZINE HCL 12.5 MG in SODIUM CHLORIDE 0.9% 50 ML IV PRN (13:16)
[2020-02-27] MEDS ORDERED: GUAIFENESIN/CODEINE 100MG/10MG 5ML UDC PO PRN (13:19)
[2020-02-27] MEDS: SUCRALFATE 1 GM/10 ML UDC PO SCH ×2 (16:46→19:51)
[2020-02-27] MEDS ORDERED: HYDROCODONE/HOMATROPINE SYRUP 5MG/1.5MG 5ML UDP PO PRN (17:40)
[2020-02-27] MEDS: ENOXAPARIN INJ 40 MG/0.4 ML SYR SQ SCH (19:47)
[2020-02-28 07:28] LABS: Hematocrit (blood only) 41.1 % (37-47); Hemoglobin 14.2 g/dL (12.0-16.0); Mean Corpuscular Hemoglobin 31.7 pg (25-34); Mean Corpuscular Hgb Conc 34.5 g/dL (32-36); Mean Corpuscular Volume 91.7 fL (80-100); Mean Platelet Volume 9.8 fL (7.4-10.4); Platelet Count 216 K/uL (130-400); RDW Coefficient of Variation 13.8 % (11.5-14.5); Red Blood Count 4.48 M/uL (4.2-5.4); White Blood Count 6.56 K/uL (4.8-10.8)
[2020-02-28] MEDS: PROPRANOLOL HCL LA 80 MG CAPCR PO SCH (07:58)
[2020-02-28] MEDS: TOPIRAMATE 50 MG TAB PO SCH ×2 (07:58→20:51)
[2020-02-28] MEDS: CEFDINIR 300 MG CAP PO SCH ×2 (07:58→20:51)
[2020-02-28] MEDS: SUCRALFATE 1 GM/10 ML UDC PO SCH ×4 (07:58→21:42)
[2020-02-28] MEDS: BENZONATATE 100 MG CAPSULE PO SCH ×3 (07:59→20:49)
[2020-02-28 08:04] LABS: Alanine Aminotransferase 33 U/L (12-78); Albumin Level 3.5 gm/dl (3.4-5.0); Aspartate Aminotransferase 15 U/L (15-37); BUN Creatinine Ratio 36.3 (10-20); Bilirubin Direct < 0.1 mg/dl (0-0.2); Blood Urea Nitrogen 25 mg/dl (7-18); Calcium 8.3 mg/dl (8.5-10.1); Carbon Dioxide 21 mmol/L (21-32); Chloride 110 mmol/L (98-107); Creatinine Clr Calc Pharmacy 116.1 ml/min; Est GFR (African American) 123.6; Est GFR (Non-African American) 106.6; Glucose 90 mg/dl (70-99); Potassium 3.7 mmol/L (3.5-5.1); Sodium 139 mmol/L (136-145)
[2020-02-28 08:07] LABS: Alkaline Phosphatase 73 U/L (45-117); Bilirubin,Total 0.5 mg/dl (0.2-1)
[2020-02-28 15:09] LABS: SARS CoV2 RNA (COVID-19) NOT DETECTED (NOT DETECTED)
--- NOTE | 2020-02-28 15:40 | Hospitalist Progress Note ---
Date of Service February 28, 2020 Assessment & Plan (1) Dyspnea: The patient has had cough for 6+ weeks. on biologic agent for ankylosing spondylitis Patient recently returned from a cruise January 05 traveling to [facility], however since that time she has been very careful about avoiding contact with anyone She most recently also said some construction in her home and has been exposed to some tiling and dust It has been unresponsive to numerous OTC meds, prednisone, allergy meds, GERD medication, etc. She has not had associated fever during any portion of her illness. Previous COVID-19 testing in December was negative repeat COVID testing is NEGATIVE Patient feels bronchodilators exacerbate her symptoms, only improvement after stopping albuterol on admission 02/26/20 - cxr, biofire respiratory panel, cbc, crp, EKG, and other labs are all normal. * Patient was initiated on cefdinir 300mg BID, and this continues * pt notes timing of improvement of symptoms after carafate given, makes GI refluse pneumonitis more likely, continue to treat * chest CT w/o contrast - r/o interstitial processes, atypical infection, etc has been delayed due to pending cover testing, will now have completed to eval for non typical or fungal lung issues * Initiation on antitussives including Tessalon Perles hydrocodone and Phenergan Negative d-dimer excluding venous thromboembolic phenomena also going against this being possible COVID issue (2) Ankylosing spondylitis: on biologic agent chronically for such, currently on hold controlled (3) Migraine: controlled, typically takes Zomig (4) DVT prophylaxis: lovenox daily place on observation status Admission and Anticipated Discharge Date Admission Date: February 26, 2020 Subjective This patient has improvement of her cough approximately 50% less coughing than yesterday still nonproductive still dyspneic with exertion. She states that sucralfate made her cough feels much better which makes me consider this being a gastrointestinal issue Review of Systems Review of Systems: Mild distress and fatigue no headache, blurry or double vision no speech or swallowing issues no chest pain, pressure or palpitations shortness of breath and cough, non productive no abdominal pain, no further issues with cough prompting nausea and vomiting no dysuria, hematuria or frequency no focal joint pain or swelling no back pain, CVA tenderness or radicular pain no bruising, bleeding or rashes no focal signs of weakness or numbness or altered sensation no complaints or anxiety or depression Physical Exam Physical Exam: The patient appeared in much less distress Vital signs as documented. Lungs are clear to auscultation and appear unlabored deep breaths because coughing Cardiac exam, Rhythm is regular.. No murmurs, rubs or gallops. Abdominal exam reveals normal bowel sounds, soft non tender, no masses Extremities are nonedematous and both pedal pulses are normal. Neurologic exam is alert and oriented, no focal loss of strength or sensation Skin is without bruises or rashes Psychologically is without concerns for anxiety or depression Results & Data Results & Data ([facility]) Vital Signs (Past 12 Hours) Vital Signs Temp Pulse Pulse Resp BP Pulse Ox 02/28/20 12:12 98.6 F 67 18 113/78 98 02/28/20 07:50 98.6 F 61 21 118/80 98 02/28/20 04:00 97.7 F 62 18 104/69 96 PG Care Time/CCT Total # of Minutes Spent Total Time Spent with Patient: Total time spent is greater than 50% in coordination of care (as documented) at patient's floor/unit and/or counseling patient: Coding Level of Care Code 10311 Subseq Obs Care Lvl 2 Diagnoses Dyspnea R06.02 Dyspnea type: shortness of breath Ankylosing spondylitis M45.9 Ankylosing spondylitis location: unspecified site of spine Migraine G43.909 Migraine type: unspecified Status migrainosus presence: without status migrainosus Intractability: not intractable DVT prophylaxis Z29.9 (1) Dyspnea Dyspnea type: shortness of breath Qualified Code(s): R06.02 - Shortness of breath (2) Ankylosing spondylitis Ankylosing spondylitis location: unspecified site of spine Qualified Code(s): M45.9 - Ankylosing spondylitis of unspecified sites in spine (3) Migraine Migraine type: unspecified Status migrainosus presence: without status migrainosus Intractability: not intractable Qualified Code(s): G43.909 - Migraine, unspecified, not intractable, without status migrainosus
--- NOTE | 2020-02-28 16:04 | CT Scan Report ---
CT chest wo con CT DOSE: 260.90 mGy.cm HISTORY: cough x 2 months, dyspnea TECHNIQUE: Multiaxial CT images of the chest were performed without contrast. A dose lowering techni que was utilized adhering to the principles of ALARA. COMPARISON: Chest 02/26/2020. FINDINGS: The central airways are patent. No pleural effusions. No pneumothorax. A 3 mm nodule within the left lung apex on image 44. Otherwise, lungs are clear. No focal lung consolidations to suggest pneumonia. No suspicious lytic are blastic osseous lesions. Bilateral breast implants are noted. A fe w punctate right renal calculi. The visualized liver, spleen, and adrenal glands are unremarkable. No rmal esophagus. No mediastinal or hilar lymphadenopathy. The heart is normal in size. No pericardial effusion. Normal caliber thoracic aorta. IMPRESSION: 1. No focal lung consolidations to suggest pneumonia. 2. Stable 3 mm nodule within the left lung apex compared to a [address] Therefore, this is considered to be benign. ACT 112: Negative or not required by law. Electronically signed by: Pa Tovar M.D. 02/28/2020 4:02 PM
[2020-02-28] MEDS ORDERED: GUAIFENESIN/CODEINE 200MG/20MG 10ML UDC PO PRN (20:12)
[2020-02-28] MEDS ORDERED: COUGH DROP (SUGAR FREE) LOZ 24 LOZ/1 BOX BUCCAL ONE (20:31)
[2020-02-28] MEDS: ENOXAPARIN INJ 40 MG/0.4 ML SYR SQ SCH (20:50)
[2020-02-29 06:32] LABS: Hematocrit (blood only) 40.5 % (37-47); Hemoglobin 14.2 g/dL (12.0-16.0); Mean Corpuscular Hemoglobin 31.8 pg (25-34); Mean Corpuscular Hgb Conc 35.1 g/dL (32-36); Mean Corpuscular Volume 90.8 fL (80-100); Mean Platelet Volume 9.8 fL (7.4-10.4); Platelet Count 233 K/uL (130-400); RDW Coefficient of Variation 13.5 % (11.5-14.5); RDW Standard Deviation 44.3 fL (36.4-46.3); Red Blood Count 4.46 M/uL (4.2-5.4); White Blood Count 8.93 K/uL (4.8-10.8)
[2020-02-29 07:03] LABS: BUN Creatinine Ratio 27.3 (10-20); Calcium 8.4 mg/dl (8.5-10.1); Creatinine Clr Calc Pharmacy 116.1 ml/min; Est GFR (African American) 123.6; Est GFR (Non-African American) 106.6; Potassium 3.7 mmol/L (3.5-5.1)
[2020-02-29] MEDS ORDERED: BUTALBITAL/ACETAMIN/CAFFEINE TAB PO STA (07:40)
[2020-02-29] MEDS: SUCRALFATE 1 GM/10 ML UDC PO SCH ×2 (08:00→14:04)
[2020-02-29] MEDS: CEFDINIR 300 MG CAP PO SCH (08:00)
[2020-02-29] MEDS: BENZONATATE 100 MG CAPSULE PO SCH ×2 (08:00→14:04)
[2020-02-29] MEDS: PROPRANOLOL HCL LA 80 MG CAPCR PO SCH (08:00)
[2020-02-29] MEDS: TOPIRAMATE 50 MG TAB PO SCH (08:00)
--- NOTE | 2020-02-29 15:32 | Discharge Summary ---
Date of Service February 29, 2020 Admission HPI Per Admitting Provider 44yo female with history of ankylosing spondylitis who presents with persistent cough for 7 weeks. History goes back to early December when she and her went on a cruise. The cruise ultimately docked in [facility]. During the cruise she developed a severe sore throat with conjunctivitis. She had no fever then. 10yo daughter was also sick with fatigue, sore throat, etc. She and her daughter were both tested for COVID-19 in late December - both negative. Shortly after the cruise her sore throat ended and a cough began. She has had a cough ever since. She has had persistent wheezing as well. Cough is dry; no sputum production. She has to clear her throat frequently. Late last week she was placed on prednisone for her cough. About this time she began to have shortness of breath and hoarse voice. She has had to prop herself up on pillows at night to help with shortness of breath. She does not feel the prednisone helped her symptoms - in fact she feels worse on steroids. No chest pain. No chest tightness. No antibiotics. Has used claritin and flonase for several weeks without relief of symptoms. Taking prilosec OTC - thinking cough was reflux - but this has not helped her symptoms. Had albuterol nebs in the ER x 2 - helped for 10 minutes then symptoms quickly returned. Principal Diagnosis reflux pneumonitis unremitting cough COVID negative Discharge Exam The patient appeared well Vital signs as documented Extremities are nonedematous and both pedal pulses are normal. Neurologic exam is alert and oriented, no focal loss of strength or sensation Skin is without bruises or rashes Psychologically is without concerns for anxiety or depression Discharge Data Allergies Allergy/AdvReac Type Severity Reaction Status Date / Time citalopram [From Celexa] Allergy Unknown Unknown Verified 02/26/20 23:11 indomethacin Allergy Unknown RASH Verified 02/26/20 14:29 hydrocodone AdvReac Intermediate NEUROTIC Verified 02/26/20 14:29 procaine AdvReac Unknown SEVERE N/V Verified 02/26/20 14:29 tramadol AdvReac Unknown neurotic Verified 02/26/20 14:29 Ordered Studies 02/26/20 19:29 CT chest wo con Stat Hospital Course (1) Dyspnea: The patient has had cough for 6+ weeks. on biologic agent for ankylosing spondylitis Patient recently returned from a cruise January 05 traveling to [facility], however since that time she has been very careful about avoiding contact with anyone She most recently also said some construction in her home and has been exposed to some tiling and dust It has been unresponsive to numerous OTC meds, prednisone, allergy meds, GERD medication, etc. She has not had associated fever during any portion of her illness. Previous COVID-19 testing in December was negative repeat COVID testing is NEGATIVE Patient feels bronchodilators exacerbate her symptoms, only improvement after stopping albuterol on admission 02/26/20 - cxr, biofire respiratory panel, cbc, crp, EKG, and other labs are all normal. * Patient was initiated on cefdinir 300mg BID, and will complete course * the pt feels the most best once she takes carafate suggesting this maybe reflux related, the other consideration is this is sensitization after viral uri Negative d-dimer excluding venous thromboembolic phenomena (2) Ankylosing spondylitis: on biologic agent chronically for such, currently on hold Pt states recent flare prompted increased ibuprofen use as one previous medication had become too costly to affort( she feels this was a nsaid RX) (3) Migraine: controlled, typically takes Zomig, did have one headache here and resolved with fioronol (4) DVT prophylaxis: lovenox daily place on observation status Total Time Total Time Spent Total Time Spent (In Minutes): It required greater than 30 minutes to prepare this patient for discharge Discharge Plan Discharge Items Patient Disposition: Home - Self-Care Reason For Visit: PERSISTENT COUGH, DYSPNEA Discharge Diagnosis: reflux pneumonitis Condition on Discharge: Fair Activity: Resume your previous activity Non-emergency contact: Primary Care Provider Call non-emergency contact if: you have any medication questions Follow-up/Referrals: Alexander Jones PA-C [Physician Director Of Reimbursement] - Emma Henderson [Primary Care Provider] - (please see in the next week) Diet: Regular Addtl Attending Provider Instructions: rest and recover avoid exertion follow up with dr Porras and your primary care provider Pending Studies at Discharge: No Stand-Alone Forms: My [employer], Smoking Cessation Medications and DC Order Prescriptions: New codeine-guaifenesin 10-100 mg/5 mL Liquid 10 ml PO Q6H PRN (Reason: cough) Qty: 120 RF: 0 cefdinir 300 mg Capsule 300 mg PO BID Qty: 10 RF: 0 sucralfate 100 mg/mL Suspension 5 ml PO QID Qty: 420 RF: 0 cyclobenzaprine 10 mg tablet 10 mg PO TID PRN (Reason: muscle spasm) Qty: 20 RF: 0 Continued adalimumab [Humira(CF)] 40 mg/0.4 mL syringe kit 40 mg SQ Q14D RF: 0 Zomig 5 mg spray,non-aerosol 1 sprays INTNAS Q2H PRN (Reason: headache) Qty: 6 RF: 2 topiramate [Topamax] 50 mg tablet 50 mg PO .COMPLEX 30 Days Qty: 90 RF: 2 propranolol 80 mg capsule,extended release 24 hr 80 mg PO DAILY Qty: 30 RF: 2 Ajovy Syringe 225 mg/1.5 mL syringe 225 mg SQ .COMPLEX 30 Days Qty: 1.5 RF: 2 ondansetron 4 mg tablet,disintegrating 4 mg PO BID PRN (Reason: nausea and vomiting) Qty: 30 RF: 2 benzonatate 100 mg capsule 100 mg PO TID PRN (Reason: Cough) RF: 0 Discontinued prednisone 20 mg tablet 40 mg PO DAILY RF: 0 Discharge Orders: Discharge Order (Routine); Ordered 02/29/20 Ordered By: Franco Stanley/Other Patient Handouts: Sucralfate oral suspension, Cyclobenzaprine tablets, Codeine Guaifenesin oral solution or syrup, Cefdinir capsules Admission Data Admit Date/Time: 02/26/20 19:29 Attending Provider: Franco Turner Admit Provider: Giles Barnes Primary Care Provider: Emma Henderson Other Interventions: Discharge Summary Assessment (RN) Last Done: 02/29/20 12:34 DC Date/Time DO NOT enter until pt leaves facility: 02/29/20 14:23 Coding Level of Care Code D/C Day Management >30 mins Diagnoses Dyspnea R06.02 Dyspnea type: shortness of breath Ankylosing spondylitis M45.9 Ankylosing spondylitis location: unspecified site of spine Migraine G43.909 Migraine type: unspecified Status migrainosus presence: without status migrainosus Intractability: not intractable DVT prophylaxis Z29.9
== END 2020-02-29 14:23 | disposition home or self-care (01) ==
LOC: 2S 13:25 → ED 13:25 → SUATTDRO 19:29 → 2S 20:05 → 3E 02-28 15:32

== ENCOUNTER 2020-07-22 22:05 | Inpatient (IN) ==
[2020-07-22] MEDS ORDERED: ONDANSETRON INJ 2 MG/ML 2 ML VIAL IV STA (22:28)
[2020-07-22] MEDS ORDERED: KETOROLAC 30 MG/ML VIAL IV STA (22:28)
[2020-07-22] MEDS ORDERED: MoRPHine SULFATE 4 MG/ML 1 ML CARP\\VIAL IV STA (22:28)
[2020-07-22] MEDS ORDERED: SODIUM CHLORIDE 0.9% 1000ML 1,000 ML IV SCH (22:30)
--- NOTE | 2020-07-22 22:34 | Emergency Department Note ---
History of Present Illness General Chief complaint: Back Injury/Pain Stated complaint: RIGHT SIDE BACK PAIN Time Seen by Provider: 07/22/20 22:14 History of Present Illness Maximum Pain Intensity: 7 This is a 44-year-old female presenting to the emergency department with very low right-sided back/flank pain for the past 3.5 hours. The patient states that she does not have any distinct injury or trauma. The pain is occasionally severe and rated at 9/10. She is not sure if movement makes it better or worse, and states that when the pain is at its worse movement seems to make it better. She has not had fever, chills, chest pain, chest tightness, shortness of breath, or difficulty using the bathroom. She has an extensive history of back issues including back surgery and pain management injections. She typically does very well with pain management injections. Her pain was severe enough tonight that she did take ibuprofen as well as to very old Percocet without any relief of symptoms. Patient typically does not take opioids for her symptoms. She feels that her pain tonight is different from her normal back pain. She is nauseated which is also atypical when she has flares of pain. Home Medications Home Medications Medication Instructions Recorded Confirmed Type Humira Pen 40 mg SUBCUT Q14D 03/06/20 07/22/20 History propranolol 80 mg capsule,24 80 mg PO HS 30 Days #30 cap 05/30/20 07/22/20 Rx hr,extended release topiramate 50 mg tablet See Rx Instructions PO .COMPLEX 30 05/30/20 07/22/20 Rx Days #90 tab oohtikwlav-hvwgojykbniel-qama 2 tab PO Q6H PRN 07/22/20 07/22/20 History fremanezumab-vfrm [Ajovy Syringe] 225 mg SQ MONTHLY 07/22/20 07/22/20 History Allergies Allergy/AdvReac Type Severity Reaction Status Date / Time indomethacin Allergy Severe Rash Verified 07/22/20 22:45 citalopram [From Celexa] AdvReac Severe "crawling Verified 07/22/20 22:45 out of skin" procaine AdvReac Severe Nausea/Vomi Verified 07/22/20 22:45 ting tramadol AdvReac Severe "crawling Verified 07/22/20 22:45 out of skin" hydrocodone AdvReac Intermediate "crawling Verified 07/22/20 22:45 out of skin" Past Med/Surg History Medical History Ankylosing spondylitis Chronic cough Diffuse myofascial pain syndrome Fibromyalgia-followed by rheumatology GERD (gastroesophageal reflux disease) Hyperlipidemia Migraine Right hip pain Strabismic amblyopia Surgical History Fusion of spine L5-S1, HDW H/O abdominoplasty H/O rotator cuff surgery left History of adenoidectomy History of anesthesia reaction WITH LAST PROCEDURE EGD>"FAILED PROCEDURE BECAUSE KEPT COUGHING/WHEEZING WHILE TRYING TO PLACE IMPLANT DEVICE". History of arthroscopy left acl History of section History of colonoscopy History of discectomy History of endoscopic sinus surgery History of esophagogastroduodenoscopy (EGD) History of myringotomy right History of tonsillectomy History of tooth extraction wisdom Nausea and vomiting after administration of anesthetic agent S/P LASIK surgery of both eyes Status post hip surgery right Status post surgery Family History Father , age 50 Lung cancer Mother COPD (chronic obstructive pulmonary disease) Diabetes Denies family history of Asthma Social History Smoking Status: Never smoker Second Hand Exposure: No; Hx Alcohol Use: No Hx Substance Use: No Preferred Language: Togolese Communication Ability: Effective Mortgage Loan Processing Clerk Required: No Beliefs That Will Affect Care: None marital status: Current Living Situation: Family current occupational 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 kids Feels Safe at Home: Yes Assistive Devices: None Review of Systems A total of 10 systems reviewed and were otherwise negative Physical Exam Vital Signs Vital Signs - 24 hr 07/22/20 22:10 07/22/20 23:41 07/23/20 00:01 Temperature 36.5 C Temperature Source Oral Pulse Rate 72 65 62 Pulse Rate from SpO2 Sensor 64 62 Respiratory Rate 20 19 23 Blood Pressure 129/94 110/74 113/82 Blood Pressure Mean 105 81 94 Blood Pressure Position Sitting Pulse Oximetry 98 97 99 Sepsis Recent Fever Within 48 Hours No Sepsis New/Unexplained Change in Mental Status No Sepsis Action Taken by Nursing No Action Required 07/23/20 00:30 07/23/20 01:00 Temperature Temperature Source Pulse Rate 55 L 66 Pulse Rate from SpO2 Sensor 54 L 65 Respiratory Rate 20 17 Blood Pressure 113/79 111/76 Blood Pressure Mean 83 88 Blood Pressure Position Pulse Oximetry 99 99 Sepsis Recent Fever Within 48 Hours Sepsis New/Unexplained Change in Mental Status Sepsis Action Taken by Nursing VITALS: Vitals are noted on the nurse's note and reviewed by myself. Vital signs stable. GENERAL: Well-developed, well-nourished, white female who appears mildly uncomfortable in the ER room. NECK: Supple without nuchal rigidity. No lymphadenopathy. No thyromegaly. Cervical spine is nontender. HEART: Regular rate and rhythm without murmurs gallops or rubs. LUNGS: Clear to auscultation bilaterally without wheezes, rales or rhonchi. No retractions or accessory muscle use. ABDOMEN: Positive normal bowel sounds x 4. Soft, nontender, without masses or organomegaly. No guarding or rebound tenderness. BACK: Positive right side low back tenderness and tenderness along the superior right-sided superior pelvic. No distinct gluteal tenderness. No saddle paresthesias. MUSCULOSKELETAL: No muscle atrophy, erythema, or edema noted. Full range of motion in all extremities. No tenderness to palpation. Normal gait. Strength 5/5 throughout. NEURO: Patient was alert and oriented to person place and time. CN II through XII grossly intact. No focal neurological deficits. Deep tendon reflexes 2+ throughout. SKIN: The skin was without rashes, erythema, edema, or bruising. Capillary refill less than 2 seconds. Course Administered Medications Enoxaparin Sodium (Enoxaparin Inj 40 Mg/0.4 Ml Syr) 40 mg SQ QAM BLACK Stop: 08/22/20 08:59 Last Admin: 07/23/20 10:15 Dose: Not Given Documented by: [id number] Hydromorphone HCl (Hydromorphone Inj 0.5 Mg/0.5 Ml Syr) 0.5 mg IV Q4H PRN PRN Reason: Pain Stop: 08/06/20 01:56 Last Admin: 07/23/20 19:46 Dose: 0.5 mg Documented by: [id number] Admin: 07/23/20 10:15 Dose: 0.5 mg Documented by: [id number] Admin: 07/23/20 03:25 Dose: 0.5 mg Documented by: [id number] Ceftriaxone Sodium 2,000 mg/ (Dextrose) 70 mls @ 100 mls/hr IV Q24H BLACK; Protocol Stop: 08/02/20 02:29 Last Infusion: 07/23/20 04:05 Dose: 0 mls/hr Documented by: [id number] Admin: 07/23/20 03:23 Dose: 100 mls/hr Documented by: [id number] Sodium Chloride (Nss 1000ml) 1,000 mls @ 100 mls/hr IV .Q10H BLACK Stop: 08/22/20 01:56 Last Admin: 07/23/20 13:43 Dose: 100 mls/hr Documented by: [id number] Infusion: 07/23/20 11:57 Dose: 100 mls/hr Documented by: [id number] Admin: 07/23/20 01:57 Dose: 100 mls/hr Documented by: [id number] Miscellaneous (*Humira*Order Awaiting Action) 1 ea N/A QS [facility] Stop: 08/22/20 13:14 Last Admin: 07/23/20 15:45 Dose: Not Given Documented by: [id number] Admin: 07/23/20 14:38 Dose: Not Given Documented by: [id number] Miscellaneous (*Ajovy*Order Awaiting Action) 1 ea N/A QS [facility] Stop: 08/22/20 13:14 Last Admin: 07/23/20 15:45 Dose: Not Given Documented by: [id number] Admin: 07/23/20 14:38 Dose: Not Given Documented by: [id number] Morphine Sulfate (Morphine Sulfate 4 Mg/Ml 1 Ml Carp\\Vial) 4 mg IV Q4H PRN PRN Reason: Pain Stop: 08/06/20 01:56 Last Admin: 07/23/20 06:38 Dose: 4 mg Documented by: [id number] Ondansetron HCl (Ondansetron Inj 2 Mg/Ml 2 Ml Vial) 4 mg IV Q6H PRN PRN Reason: Nausea Stop: 08/22/20 01:56 Last Admin: 07/23/20 16:02 Dose: 4 mg Documented by: [id number] Admin: 07/23/20 06:38 Dose: 4 mg Documented by: [id number] Topiramate (Topiramate 50 Mg Tab) 50 mg PO QAM BLACK Stop: 08/22/20 08:59 Last Admin: 07/23/20 10:19 Dose: Not Given Documented by: [id number] Discontinued Medications Diatrizoate Meglumine (Diatrizoate Meglumine 30% 100ml Vial) 10 ml INSTIL ONCE ONE Stop: 07/23/20 12:07 Last Admin: 07/23/20 11:50 Dose: 10 ml Documented by: [id number] Hydromorphone HCl (Hydromorphone Inj 0.5 Mg/0.5 Ml Syr) Confirm Administered Dose 0.5 mg .ROUTE .STK-MED ONE Stop: 07/23/20 01:43 Last Admin: 07/23/20 01:47 Dose: Not Given Documented by: [id number] Hydromorphone HCl (Hydromorphone Inj 0.5 Mg/0.5 Ml Syr) 0.5 mg IV NOW STA Stop: 07/23/20 01:41 Last Admin: 07/23/20 01:47 Dose: 0.5 mg Documented by: [id number] Sodium Chloride (Nss 1000ml) 1,000 mls @ 999 mls/hr IV .Q1H1M BLACK Stop: 07/22/20 23:30 Last Infusion: 07/22/20 23:45 Dose: 0 mls/hr Documented by: [id number] Admin: 07/22/20 22:44 Dose: 999 mls/hr Documented by: [id number] Promethazine HCl 6.25 mg/ (Sodium Chloride) 50.25 mls @ 201 mls/hr IV NOW STA Stop: 07/23/20 10:32 Last Admin: 07/23/20 11:35 Dose: Not Given Documented by: [id number] Ketorolac Tromethamine (Ketorolac 30 Mg/Ml Vial) 30 mg IV NOW STA Stop: 07/22/20 22:29 Last Admin: 07/22/20 22:41 Dose: 30 mg Documented by: [id number] Morphine Sulfate (Morphine Sulfate 4 Mg/Ml 1 Ml Carp\\Vial) 4 mg IV NOW STA Stop: 07/22/20 22:29 Last Admin: 07/22/20 22:41 Dose: 4 mg Documented by: [id number] Morphine Sulfate (Morphine Sulfate 4 Mg/Ml 1 Ml Carp\\Vial) 4 mg IV NOW STA Stop: 07/23/20 00:06 Last Admin: 07/23/20 00:11 Dose: 4 mg Documented by: [id number] Ondansetron HCl (Ondansetron Inj 2 Mg/Ml 2 Ml Vial) 4 mg IV NOW STA Stop: 07/22/20 22:29 Last Admin: 07/22/20 22:41 Dose: 4 mg Documented by: [id number] Medical Decision Making Differential Diagnosis Differential diagnosis: Etiologies such as muscular strain, fracture, metastatic disease, disc herniation, sciatica, epidural abscess, vertebral osteomyelitis, discitis, spinal epidural hematoma, cord compression, cauda equina/conus medullaris syndrome, aortic disease, infection, shingles, renal colic UTI/pyelonephritis, gastrointestinal, acute exacerbation of chronic back pain, as well as others were entertained. Laboratory Data Result diagrams: 07/23/20 05:51 07/23/20 05:51 Lab Results 07/22/20 07/22/20 07/22/20 Range/Units 22:44 22:44 22:44 WBC 8.15 (4.8-10.8) K/uL RBC 4.38 (4.2-5.4) M/uL Hgb 13.9 (12.0-16.0) g/dL Hct 39.9 (37-47) % MCV 91.1 (80-100) fL MCH 31.7 (25-34) pg MCHC 34.8 (32-36) g/dL RDW Std Deviation 43.1 (36.4-46.3) fL RDW Coeff of Tracy 12.9 (11.5-14.5) % Plt Count 180 (130-400) K/uL MPV 10.6 H (7.4-10.4) fL Immature Gran % (Auto) 0.2 % Neut % (Auto) 61.1 % Lymph % (Auto) 27.6 % Coffey % (Auto) 9.8 % Eos % (Auto) 1.2 % Baso % (Auto) 0.1 % Neut # (Auto) 4.97 (1.4-6.5) K/uL Lymph # (Auto) 2.25 (1.2-3.4) K/uL Coffey # (Auto) 0.80 H (0.11-0.59) K/uL Eos # (Auto) 0.10 (0-0.5) K/uL Baso # (Auto) 0.01 (0-0.2) K/uL Immature Gran # (Auto) 0.02 (0.00-0.02) K/uL Sodium 139 (136-145) mmol/L Potassium 3.8 (3.5-5.1) mmol/L Chloride 111 H (98-107) mmol/L Carbon Dioxide 22 (21-32) mmol/L Anion Gap 6.0 (3-11) BUN 23 H (7-18) mg/dl Creatinine 0.97 (0.6-1.2) mg/dl Est Cr Clr Drug Dosing 75.5 ml/min Est GFR ( Amer) 82.9 Est GFR (Non-Af Amer) 71.5 BUN/Creatinine Ratio 24.1 H (10-20) Glucose 109 H (70-99) mg/dl Calcium 9.1 (8.5-10.1) mg/dl Total Bilirubin 0.2 (0.2-1) mg/dl AST 23 (15-37) U/L ALT 26 (12-78) U/L Alkaline Phosphatase 81 (45-117) U/L Total Protein 7.0 (6.4-8.2) gm/dl Albumin 3.4 (3.4-5.0) gm/dl Globulin 3.6 (2.5-4.0) gm/dl Albumin/Globulin Ratio 0.9 (0.9-2) Lipase 97 (73-393) U/L Specimen Hemolysis Urine Color Yellow Urine Appearance Clear (Clear) Urine pH 5.5 (4.5-7.5) Ur Specific [place] 1.021 (1.000-1.030) Urine Protein Negative (Negative) Urine Glucose (UA) Negative (Negative) Urine Ketones Negative (Negative) Urine Blood 3+ H (Negative) Urine Nitrite Negative (Negative) Urine Bilirubin Negative (Negative) Urine Urobilinogen Negative (Negative) Ur Leukocyte Esterase Negative (Negative) Urine WBC (Auto) 1-5 (0-5) /hpf Urine RBC (Auto) >30 H (0-4) /hpf U Hyaline Cast (Auto) 1-5 (0-5) /lpf U Epithel Cells (Auto) >30 H (0-5) /lpf Urine Bacteria (Auto) Negative (Negative) Urine Test (Negative) 09/29/20 Range/Units 22:44 WBC (4.8-10.8) K/uL RBC (4.2-5.4) M/uL Hgb (12.0-16.0) g/dL Hct (37-47) % MCV (80-100) fL MCH (25-34) pg MCHC (32-36) g/dL RDW Std Deviation (36.4-46.3) fL RDW Coeff of Tracy (11.5-14.5) % Plt Count (130-400) K/uL MPV (7.4-10.4) fL Immature Gran % (Auto) % Neut % (Auto) % Lymph % (Auto) % Coffey % (Auto) % Eos % (Auto) % Baso % (Auto) % Neut # (Auto) (1.4-6.5) K/uL Lymph # (Auto) (1.2-3.4) K/uL Coffey # (Auto) (0.11-0.59) K/uL Eos # (Auto) (0-0.5) K/uL Baso # (Auto) (0-0.2) K/uL Immature Gran # (Auto) (0.00-0.02) K/uL Sodium (136-145) mmol/L Potassium (3.5-5.1) mmol/L Chloride (98-107) mmol/L Carbon Dioxide (21-32) mmol/L Anion Gap (3-11) BUN (7-18) mg/dl Creatinine (0.6-1.2) mg/dl Est Cr Clr Drug Dosing ml/min Est GFR ( Amer) Est GFR (Non-Af Amer) BUN/Creatinine Ratio (10-20) Glucose (70-99) mg/dl Calcium (8.5-10.1) mg/dl Total Bilirubin (0.2-1) mg/dl AST (15-37) U/L ALT (12-78) U/L Alkaline Phosphatase (45-117) U/L Total Protein (6.4-8.2) gm/dl Albumin (3.4-5.0) gm/dl Globulin (2.5-4.0) gm/dl Albumin/Globulin Ratio (0.9-2) Lipase (73-393) U/L Specimen Hemolysis Urine Color Urine Appearance (Clear) Urine pH (4.5-7.5) Ur Specific [place] (1.000-1.030) Urine Protein (Negative) Urine Glucose (UA) (Negative) Urine Ketones (Negative) Urine Blood (Negative) Urine Nitrite (Negative) Urine Bilirubin (Negative) Urine Urobilinogen (Negative) Ur Leukocyte Esterase (Negative) Urine WBC (Auto) (0-5) /hpf Urine RBC (Auto) (0-4) /hpf U Hyaline Cast (Auto) (0-5) /lpf U Epithel Cells (Auto) (0-5) /lpf Urine Bacteria (Auto) (Negative) Urine Test Negative (Negative) Imaging Data Radiologist's Impression: CT SCAN OF THE ABDOMEN AND PELVIS WITHOUT CONTRAST CLINICAL HISTORY: Right low back/flank pains COMPARISON STUDY: 05/04/2016 TECHNIQUE: CT scan of the abdomen and pelvis was performed from the lung bases to the proximal femurs. Images are reviewed in the axial, sagittal, and coronal planes. IV contrast was not administered for this examination. A dose lowering technique was utilized adhering to the principles of ALARA. CT DOSE: 883.42 mGy.cm FINDINGS: Lower chest: There are mild basilar atelectatic changes. There are bilateral breast implants Liver: The unenhanced liver is normal in size, contour, and attenuation. There is no intrahepatic biliary ductal dilatation. Gallbladder: Unremarkable. Spleen: Normal in size and attenuation. Pancreas: Unremarkable. Adrenal glands: Unremarkable. Kidneys: There is right-sided hydronephrosis and hydroureter. There is a 2 mm upper pole right renal calculus. There is a 6 mm obstructing proximal right ureteral calculus. Bowel: There are no transition zones indicate bowel obstruction. The appendix appears normal. There is no acute diverticulitis. Peritoneum: There is no intraperitoneal free air or abdominal ascites. Vasculature: The abdominal aorta is normal in course and caliber. Adenopathy: None. Pelvic viscera: The bladder, and pelvic viscera are unremarkable. Skeletal structures: Postsurgical changes are present within the cervical spine at the L5-S1 level. IMPRESSION: 1. Right-sided nephrolithiasis 2. Obstructing 6 mm proximal left ureteral calculus at the L3-4 level 3. No evidence of bowel obstruction. No evidence of free air 4. Normal appendix. No evidence of acute diverticulitis. MDM Narrative Physical exam and history were performed. Nursing notes, EMR, and Medication List were personally reviewed. Patient appears to have right-sided back pain that is different from her normal pain. IV access was established and labs were obtained. The patient was given IV Toradol, IV morphine, IV Zofran, and IV fluids. She was sent to CT scan for further evaluation of her symptoms. The patient's blood work is as above and was reviewed. She does not have a sig nificantly elevated white blood cell count, gross anemia, bandemia, or significant electrolyte imbalance. Transaminases are not diagnostic. Urine is negative for but does show 3+ blood without obvious evidence of infection. CT scan was reviewed by myself and radiology, and is consistent with a 6 mm proximal obstructing ureteral stone. On reevaluation the patient continued to have discomfort and was given additional morphine. Overall she does not appear well for discharge home. The case was discussed with the on-call hospitalist, Dr. Bailey, who was kind enough to evaluate the patient here in the ER. Please see Dr. Bailey's dictation for further patient course, plan, and disposition. The chart was completed utilizing [employer] Speech Voice Recognition Software. Grammatical errors, random word insertions, pronoun errors, and incomplete sentences are an occasional consequence of this system due to software limitations, ambient noise, and hardware issues. Any formal questions or concerns about the content, text, or information contained within the body of this dictation should be directly addressed to the provider for clarification. . Impression & Plan Right ureteral stone, Acute flank pain Discharge Plan Visit Data Chief Complaint: Back Injury/Pain Stated Complaint: RIGHT SIDE BACK PAIN ED Provider: Abraham Carbone ED Midlevel Provider: Milo Yuan Discharge Problem: Right ureteral stone, Acute flank pain Patient Disposition: Admitted As Inpatient Discharge Instructions Interventions: ED Discharge Assessment Last Done: 07/23/20 01:48
[2020-07-22 22:57] LABS: Basophils # (auto) 0.01 K/uL (0-0.2); Basophils % (auto) 0.1 %; Eosinophils % (auto) 1.2 %; Hematocrit (blood only) 39.9 % (37-47); Hemoglobin 13.9 g/dL (12.0-16.0); Immature Granulocytes # (auto) 0.02 K/uL (0.00-0.02); Immature Granulocytes % (auto) 0.2 %; Lymphocytes # (auto) 2.25 K/uL (1.2-3.4); Lymphocytes % (auto) 27.6 %; Mean Corpuscular Hemoglobin 31.7 pg (25-34); Mean Corpuscular Hgb Conc 34.8 g/dL (32-36); Mean Corpuscular Volume 91.1 fL (80-100); Mean Platelet Volume 10.6 fL (7.4-10.4); Monocytes % (auto) 9.8 %; Neutrophils # (auto) 4.97 K/uL (1.4-6.5); Neutrophils % (auto) 61.1 %; Platelet Count 180 K/uL (130-400); RDW Coefficient of Variation 12.9 % (11.5-14.5); RDW Standard Deviation 43.1 fL (36.4-46.3); Red Blood Count 4.38 M/uL (4.2-5.4); White Blood Count 8.15 K/uL (4.8-10.8)
[2020-07-22 23:04] LABS: Appearance Urine Clear (Clear); Bacteria Urine Automated Negative (Negative); Bilirubin Urine Negative (Negative); Blood Urine 3+ (Negative); Color Urine Yellow; Epithelial Cell Urine Auto >30 /lpf (0-5); Glucose Urine UA Negative (Negative); Ketones Urine Negative (Negative); Leukocyte Esterase Urine Negative (Negative); Nitrite Urine Negative (Negative); Protein Urine Negative (Negative); RBC Urine Automated >30 /hpf (0-4); Specific Gravity Urine 1.021 (1.000-1.030); Urobilinogen Urine Negative (Negative); pH Urine 5.5 (4.5-7.5)
[2020-07-22 23:21] LABS: Albumin Globulin Ratio 0.9 (0.9-2); Albumin Level 3.4 gm/dl (3.4-5.0); BUN Creatinine Ratio 24.1 (10-20); Bilirubin,Total 0.2 mg/dl (0.2-1); Calcium 9.1 mg/dl (8.5-10.1); Creatinine Clr Calc Pharmacy 75.5 ml/min; Est GFR (African American) 82.9; Est GFR (Non-African American) 71.5; Globulin 3.6 gm/dl (2.5-4.0); Potassium 3.8 mmol/L (3.5-5.1); Pregnancy Test, Urine Negative (Negative)
[2020-07-23] MEDS ORDERED: MoRPHine SULFATE 4 MG/ML 1 ML CARP\\VIAL IV STA (00:05)
--- NOTE | 2020-07-23 01:20 | History & Physical Report ---
Date of Service July 23, 2020 Assessment & Plan (1) Urolithiasis: 44-year-old female with past medical history migraine headaches, ankylosing spondylitis, extensive back history presents with concerns of right lower flank pain found to have ureter stone on CT abdomen pelvis imaging. Right ureteral calculus Abdomen pelvis CT without contrast ([facility]): Obstructing 5.8 mm proximal right ureter stone at the L3-L4 level causing mild upstream hydroureteronephrosis. Additional punctate nonobstructing right kidney stone. Left kidney and collecting system are normal UA: 3+ blood, negative nitrite, negative LE, >30 RBC, >30 epithelial, negative bacteria IV morphine for pain management, IV Dilaudid for breakthrough pain IV Zofran PRN nausea IV ceftriaxone for now We will make patient n.p.o. for any possible intervention tomorrow IVF with NSS@100 mls/hr No LAURA on admission. Continue to trend daily BMP Appreciate urology consult Migraines Continue propranolol 80 mg ER, topiramate 50 mg every morning and 100 mg every evening. Fioricet as needed Chronic back pain Patient with extensive history including lumbar disc herniation, lumbar radicular pain, history of lumbosacral spine surgery and pain management injections Stable FEN/GI: NSS@100. N.p.o. DVT prophylaxis: Lovenox SQ Full code Dispo: MedSurg History of Present Illness Chief Complaint: Flank pain Primary Care Provider: Emma Henderson 44-year-old female with past medical history migraine headaches, ankylosing spondylitis, extensive back history including lumbar disc herniation, lumbar radicular pain, history of lumbosacral spine surgery and pain management injections presents with concerns of right lower flank pain that feels different than her usual back pain patient notes. Pain started all of a sudden around 7 PM. Described as sharp stabbing intermittent pain with radiation to the 'whole back.' 9 out of 10 on severity scale. No known exacerbating factors. Patient thinks pain gets alleviated with certain movements. Patient tried ibuprofen, Percocet from an old prescription, muscle relaxer, which did not seem to help much. Patient notes she has never had pain quite like this ever before. Associated nausea, but patient notes that she usually gets nauseous when she is in pain. Patient otherwise denies any fevers, chills, sweats, vomiting, diarrhea, chest pain, shortness of breath, abdominal pain, urinary symptoms of dysuria/urgency/hesitancy, numbness, tingling, trauma, known sick contacts or recent travel anywhere. Patient no other acute concerns or complaints. Prior labs: Largely unremarkable CBC CMP UA: 3+ blood, negative nitrite, negative LE, >30 RBC, >30 epithelial, negative bacteria Abdomen pelvis CT without contrast ([facility]): Obstructing 5.8 mm proximal right ureter stone at the L3-L4 level causing mild upstream hydroureteronephrosis. Additional punctate nonobstructing right kidney stone. Left kidney and collecting system are normal. ER course: IV Toradol 30 mg, IV morphine 4 mg x 2, IV Zofran 4 mg, NSS 1 L Allergies Allergy/AdvReac Type Severity Reaction Status Date / Time indomethacin Allergy Severe Rash Verified 07/22/20 22:45 citalopram [From Celexa] AdvReac Severe "crawling Verified 07/22/20 22:45 out of skin" procaine AdvReac Severe Nausea/Vomi Verified 07/22/20 22:45 ting tramadol AdvReac Severe "crawling Verified 07/22/20 22:45 out of skin" hydrocodone AdvReac Intermediate "crawling Verified 07/22/20 22:45 out of skin" Home Medications Home Medications Medication Instructions Recorded Confirmed Type Humira Pen 40 mg SUBCUT Q14D 03/06/20 07/22/20 History propranolol 80 mg capsule,24 80 mg PO HS 30 Days #30 cap 05/30/20 07/22/20 Rx hr,extended release topiramate 50 mg tablet See Rx Instructions PO .COMPLEX 30 05/30/20 07/22/20 Rx Days #90 tab xdkftgjsph-jbjmdooivdqcr-lwpy 2 tab PO Q6H PRN 07/22/20 07/22/20 History fremanezumab-vfrm [Ajovy Syringe] 225 mg SQ MONTHLY 07/22/20 07/22/20 History Past Med/Surg History Medical History Ankylosing spondylitis Chronic cough Diffuse myofascial pain syndrome Fibromyalgia-followed by rheumatology GERD (gastroesophageal reflux disease) Hyperlipidemia Migraine Right hip pain Strabismic amblyopia Surgical History Fusion of spine L5-S1, HDW H/O abdominoplasty H/O rotator cuff surgery left History of adenoidectomy History of anesthesia reaction WITH LAST PROCEDURE EGD>"FAILED PROCEDURE BECAUSE KEPT COUGHING/WHEEZING WHILE TRYING TO PLACE IMPLANT DEVICE". History of arthroscopy left acl History of section History of colonoscopy History of discectomy History of endoscopic sinus surgery History of esophagogastroduodenoscopy (EGD) History of myringotomy right History of tonsillectomy History of tooth extraction wisdom Nausea and vomiting after administration of anesthetic agent S/P LASIK surgery of both eyes Status post hip surgery right Status post surgery Family History Father , age 50 Lung cancer Mother COPD (chronic obstructive pulmonary disease) Diabetes Denies family history of Asthma Social History Smoking Status: Never smoker Second Hand Exposure: No; Hx Alcohol Use: No Hx Substance Use: No Preferred Language: Khmer Communication Ability: Effective Fish Roe Processor Required: No Beliefs That Will Affect Care: None marital status: Current Living Situation: Family current occupational 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 kids Feels Safe at Home: Yes Assistive Devices: None Review of Systems Review of Systems: All systems reviewed & are unremarkable except as noted in HPI & below Physical Exam Constitutional: WD/WN, vitals as above Eyes: PERRL, conjunctivae normal, anicteric sclerae ENMT: external ear and nose normal, oropharynx normal Respiratory: normal respiratory effort, lungs clear to auscultation Cardiovascular: RRR, no murmur, no edema Gastrointestinal (Abdomen): normal bowel sounds, soft, nontender, no hepatosplenomegaly Musculoskeletal: Right lower flank tender to palpation Skin: no rashes, warm and dry Psychiatric: A+Ox3, euthymic affect Results & Data Results & Data ([facility]) Vital Signs (Past 12 Hours) Vital Signs Temp Pulse Resp BP Pulse Ox 07/23/20 00:01 62 23 113/82 99 07/22/20 23:41 65 19 110/74 97 07/22/20 22:10 36.5 C 72 20 129/94 98 Laboratory Results Laboratory Results - last 24 hr 07/22/20 07/22/2020 22:44 22:44 22:44 WBC 8.15 RBC 4.38 Hgb 13.9 Hct 39.9 MCV 91.1 MCH 31.7 MCHC 34.8 RDW Std Deviation 43.1 RDW Coeff of [place] 12.9 Plt Count 180 MPV 10.6 H Immature Gran % (Auto) 0.2 Neut % (Auto) 61.1 Lymph % (Auto) 27.6 Trigg % (Auto) 9.8 Eos % (Auto) 1.2 Baso % (Auto) 0.1 Neut # (Auto) 4.97 Lymph # (Auto) 2.25 Trigg # (Auto) 0.80 H Eos # (Auto) 0.10 Baso # (Auto) 0.01 Immature Gran # (Auto) 0.02 Sodium 139 Potassium 3.8 Chloride 111 H Carbon Dioxide 22 Anion Gap 6.0 BUN 23 H Creatinine 0.97 Est Cr Clr Drug Dosing 75.5 Est GFR ( Amer) 82.9 Est GFR (Non-Af Amer) 71.5 BUN/Creatinine Ratio 24.1 H Glucose 109 H Calcium 9.1 Total Bilirubin 0.2 AST 23 ALT 26 Alkaline Phosphatase 81 Total Protein 7.0 Albumin 3.4 Globulin 3.6 Albumin/Globulin Ratio 0.9 Lipase 97 Specimen Hemolysis Urine Color Yellow Urine Appearance Clear Urine pH 5.5 Ur Specific [place] 1.021 Urine Protein Negative Urine Glucose (UA) Negative Urine Ketones Negative Urine Blood 3+ H Urine Nitrite Negative Urine Bilirubin Negative Urine Urobilinogen Negative Ur Leukocyte Esterase Negative Urine WBC (Auto) 1-5 Urine RBC (Auto) >30 H U Hyaline Cast (Auto) 1-5 U Epithel Cells (Auto) >30 H Urine Bacteria (Auto) Negative Urine Test POC Ur Test 07/22/20 07/22/20 22:44 22:44 WBC RBC Hgb Hct MCV MCH MCHC RDW Std Deviation RDW Coeff of [place] Plt Count MPV Immature Gran % (Auto) Neut % (Auto) Lymph % (Auto) Trigg % (Auto) Eos % (Auto) Baso % (Auto) Neut # (Auto) Lymph # (Auto) Trigg # (Auto) Eos # (Auto) Baso # (Auto) Immature Gran # (Auto) Sodium Potassium Chloride Carbon Dioxide Anion Gap BUN Creatinine Est Cr Clr Drug Dosing Est GFR ( Amer) Est GFR (Non-Af Amer) BUN/Creatinine Ratio Glucose Calcium Total Bilirubin AST ALT Alkaline Phosphatase Total Protein Albumin Globulin Albumin/Globulin Ratio Lipase Specimen Hemolysis Urine Color Urine Appearance Urine pH Ur Specific [place] Urine Protein Urine Glucose (UA) Urine Ketones Urine Blood Urine Nitrite Urine Bilirubin Urine Urobilinogen Ur Leukocyte Esterase Urine WBC (Auto) Urine RBC (Auto) U Hyaline Cast (Auto) U Epithel Cells (Auto) Urine Bacteria (Auto) Urine Test Negative POC Ur Test Pending Code Status & VTE Plan Code Status Full Resident Activity Tracking Resident Involvement: Resident Care Provided Care Provided: Adult Hospital Medicine
[2020-07-23] MEDS ORDERED: HYDROmorphone INJ 0.5 MG/0.5 ML SYR IV STA (01:40)
[2020-07-23] MEDS ORDERED: HYDROmorphone INJ 0.5 MG/0.5 ML SYR ONE (01:42)
[2020-07-23] MEDS ORDERED: ALUMINUM/MAGNESIUM SUSP 30 ML UDC PO PRN (01:57)
[2020-07-23] MEDS ORDERED: BUTALBITAL/ACETAMIN/CAFFEINE TAB PO PRN (01:57)
[2020-07-23] MEDS ORDERED: MoRPHine SULFATE 4 MG/ML 1 ML CARP\\VIAL IV PRN (01:57)
[2020-07-23] MEDS ORDERED: ACETAMINOPHEN 325 MG TAB PO PRN (01:57)
[2020-07-23] MEDS: SODIUM CHLORIDE 0.9% 1000ML 1,000 ML IV SCH ×3 (01:57→22:03)
[2020-07-23] MEDS: cefTRIAXone SODIUM 2,000 MG in DEXTROSE 5% 50 ML IV SCH (03:23)
[2020-07-23] MEDS: HYDROmorphone INJ 0.5 MG/0.5 ML SYR IV PRN ×3 (03:25→19:46)
[2020-07-23 06:33] LABS: Basophils # (auto) 0.01 K/uL (0-0.2); Basophils % (auto) 0.1 %; Eosinophils # (auto) 0.05 K/uL (0-0.5); Eosinophils % (auto) 0.6 %; Hematocrit (blood only) 38.6 % (37-47); Hemoglobin 13.3 g/dL (12.0-16.0); Immature Granulocytes # (auto) 0.02 K/uL (0.00-0.02); Immature Granulocytes % (auto) 0.2 %; Lymphocytes # (auto) 1.59 K/uL (1.2-3.4); Lymphocytes % (auto) 18.9 %; Mean Corpuscular Hemoglobin 31.7 pg (25-34); Mean Corpuscular Hgb Conc 34.5 g/dL (32-36); Mean Corpuscular Volume 91.9 fL (80-100); Mean Platelet Volume 10.8 fL (7.4-10.4); Monocytes # (auto) 0.92 K/uL (0.11-0.59); Neutrophils # (auto) 5.81 K/uL (1.4-6.5); Neutrophils % (auto) 69.2 %; Platelet Count 164 K/uL (130-400); RDW Coefficient of Variation 13.1 % (11.5-14.5); RDW Standard Deviation 43.9 fL (36.4-46.3)
[2020-07-23] MEDS: ONDANSETRON INJ 2 MG/ML 2 ML VIAL IV PRN ×2 (06:38→16:02)
[2020-07-23 06:41] LABS: Prothrombin Time 10.8 Seconds (9.0-12.0)
[2020-07-23 06:57] LABS: BUN Creatinine Ratio 24.1 (10-20); Calcium 8.5 mg/dl (8.5-10.1); Creatinine Clr Calc Pharmacy 81.6 ml/min; Est GFR (African American) 80.9; Est GFR (Non-African American) 69.8; Potassium 3.7 mmol/L (3.5-5.1)
--- NOTE | 2020-07-23 08:04 | Urology Consultation ---
Date of Consultation July 23, 2020 Assessment & Plan (1) Right ureteral stone: (2) Hydronephrosis of right kidney: 44 year-old female patient admitted with intractable right flank pain secondary to obstructing 6 mm proximal right ureteral calculus with associated right hydronephrosis. -Patient afebrile. -Strain all urine. -Keep NPO. Findings reviewed with Dr. Portillo. Given her intractable right flank pain in the context of an obstructing 6 mm right proximal ureteral stone, will proceed with OR for cystoscopy, right retrograde pyelogram and right stent placement, possible ureteral dilation depending on findings. Risks and benefits of the procedure discussed and also to be reviewed with patient by Dr. Portillo. OR notified. Patient covered with IV Ceftriaxone preoperatively. Patient understands plan of care, all questions answered. History of Present Illness Reason for Consultation: Right ureteral calculus Attending Physician: Jimbo Gamez DO History of Present Illness 44 year-old female patient with past medical history migraine headaches, ankylosing spondylitis, and extensive back history presented to the hospital with intractable right-sided back/flank pain that began 4 hours prior to hospital arrival. Urology service consulted for obstructing right ureteral calculus. Past medical and surgical history reviewed. Patient has not followed with urology in the past. Chart review: Afebrile Wbc 8.40 Hgb 13.3 Creatinine 0.99 Urinalysis with 3+ blood, >30 rbc, >30 epithelial, negative bacteria, negative nitrates. Imaging: CT abd/pelvis reviewed, right-sided nephrolithiasis with obstructing 6 mm proximal right ureteral stone with associated right-sided hydronephrosis. Patient examined this morning, laying in bed. Does have visible discomfort during exam. Reports continued right-sided back/flank pain. Pain is tolerable with IV pain medications. She has been experiencing intermittent nausea which has been present since yesterday. Denies vomiting. Denies fevers but does report chills. She denies urinary frequency/urgency. Denies hematuria or dysuria. She feels like her urine output has decreased. She has remained NPO since midnight. She denies history of kidney stones. States her brother does have history of stones. She would like to pursue surgical intervention today. Denies additional urologic concerns today. Allergies Allergy/AdvReac Type Severity Reaction Status Date / Time indomethacin Allergy Severe Rash Verified 07/22/20 22:45 citalopram [From Celexa] AdvReac Severe "crawling Verified 07/22/20 22:45 out of skin" procaine AdvReac Severe Nausea/Vomi Verified 07/22/20 22:45 ting tramadol AdvReac Severe "crawling Verified 07/22/20 22:45 out of skin" hydrocodone AdvReac Intermediate "crawling Verified 07/22/20 22:45 out of skin" Home Medications Home Medications Medication Instructions Recorded Confirmed Type Humira Pen 40 mg SUBCUT Q14D 03/06/20 07/22/20 History propranolol 80 mg capsule,24 80 mg PO HS 30 Days #30 cap 05/30/20 07/22/20 Rx hr,extended release topiramate 50 mg tablet See Rx Instructions PO .COMPLEX 30 05/30/20 07/22/20 Rx Days #90 tab tympfkorsa-fafgkrorkjagg-mhuf 2 tab PO Q6H PRN 07/22/20 07/22/20 History fremanezumab-vfrm [Ajovy Syringe] 225 mg SQ MONTHLY 07/22/20 07/22/20 History Patient History Medical History Ankylosing spondylitis Chronic cough Diffuse myofascial pain syndrome Fibromyalgia-followed by rheumatology GERD (gastroesophageal reflux disease) Hyperlipidemia Migraine Right hip pain Strabismic amblyopia Surgical History Fusion of spine L5-S1, HDW H/O abdominoplasty H/O rotator cuff surgery left History of adenoidectomy History of anesthesia reaction WITH LAST PROCEDURE EGD>"FAILED PROCEDURE BECAUSE KEPT COUGHING/WHEEZING WHILE TRYING TO PLACE IMPLANT DEVICE". History of arthroscopy left acl History of section History of colonoscopy History of discectomy History of endoscopic sinus surgery History of esophagogastroduodenoscopy (EGD) History of myringotomy right History of tonsillectomy History of tooth extraction wisdom Nausea and vomiting after administration of anesthetic agent S/P LASIK surgery of both eyes Status post hip surgery right Status post surgery Family History Father , age 50 Lung cancer Mother COPD (chronic obstructive pulmonary disease) Diabetes Denies family history of Asthma Social History Smoking Status: Never smoker Second Hand Exposure: No; Do You Dip or Chew Tobacco: No; Tobacco Cessation Education Requested by Patient: No Hx Alcohol Use: No Hx Substance Use: No Preferred Language: Mongolian Communication Ability: Effective Grazing Aide Required: No Beliefs That Will Affect Care: None marital status: Current Living Situation: Family current occupational 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 Other Information That Helps Us Care for You: No other: 2 kids Feels Safe at Home: Yes Safety Concerns: Feels Safe At This Time Assistive Devices: None Review of Systems Constitutional: as per Subjective / HPI; no fever and no chills Respiratory: no cough and no dyspnea Cardiovascular: no chest pain Gastrointestinal: as per Subjective / HPI and + nausea; no vomiting Genitourinary: as per Subjective / HPI Musculoskeletal: as per Subjective / HPI and + back pain Neurologic: no dizziness Physical Exam Constitutional: well developed and well nourished; not ill appearing Appears in discomfort Eyes: no eyelid abnormality ENMT: Ears: no external ear abnormality Neck: normal visual inspection and trachea midline Respiratory: normal respiratory effort and able to speak in complete sentences; no respiratory distress and no audible wheezes Gastrointestinal (Abdomen): Inspection/Auscultation: abdomen normal to inspection; abdomen not distended Percussion/Palpation: abdomen soft; abdomen nontender Musculoskeletal: Moves all extremities without difficulty. Skin: No visible rashes, lesions, or wounds noted. Neurologic: moves all extremities and awake Psychiatric: Orientation: alert, oriented x 3 and cooperative Affect: euthymic affect Results & Data ([facility]) Vital Signs (Past 12 Hours) Vital Signs Temp Pulse Pulse Resp BP BP Pulse Ox 07/23/20 07:18 36.9 C 72 16 120/80 94 07/23/20 01:55 63 16 121/81 97 07/23/20 01:45 36.2 C L 63 16 121/81 97 07/23/20 01:30 74 20 110/71 99 07/23/20 01:00 66 17 111/76 99 07/23/20 00:30 55 L 20 113/79 99 07/23/20 00:01 62 23 113/82 99 07/22/20 23:41 65 19 110/74 97 07/22/20 22:10 36.5 C 72 20 129/94 98 PG Care Time/CCT Total # of Minutes Spent Total Time Spent with Patient: Total time spent is greater than 50% in coordination of care (as documented) at patient's floor/unit and/or counseling patient: Coding Level of Care Code 85515 Inpt Consult Level 4 Diagnoses Right ureteral stone N20.1 Hydronephrosis of right kidney N13.30
--- NOTE | 2020-07-23 08:04 | CT Scan Report ---
CT SCAN OF THE ABDOMEN AND PELVIS WITHOUT CONTRAST CLINICAL HISTORY: Right low back/flank pains COMPARISON STUDY: 05/04/2016 TECHNIQUE: CT scan of the abdomen and pelvis was performed from the lung bases to the proximal femurs . Images are reviewed in the axial, sagittal, and coronal planes. IV contrast was not administered fo r this examination. A dose lowering technique was utilized adhering to the principles of ALARA. CT DOSE: 883.42 mGy.cm FINDINGS: Lower chest: There are mild basilar atelectatic changes. There are bilateral breast implants Liver: The unenhanced liver is normal in size, contour, and attenuation. There is no intrahepatic zbigniew iary ductal dilatation. Gallbladder: Unremarkable. Spleen: Normal in size and attenuation. Pancreas: Unremarkable. Adrenal glands: Unremarkable. Kidneys: There is right-sided hydronephrosis and hydroureter. There is a 2 mm upper pole right renal calculus. There is a 6 mm obstructing proximal right ureteral calculus. Bowel: There are no transition zones indicate bowel obstruction. The appendix appears normal. There i s no acute diverticulitis. Peritoneum: There is no intraperitoneal free air or abdominal ascites. Vasculature: The abdominal aorta is normal in course and caliber. Adenopathy: None. Pelvic viscera: The bladder, and pelvic viscera are unremarkable. Skeletal structures: Postsurgical changes are present within the cervical spine at the L5-S1 level. IMPRESSION: 1. Right-sided nephrolithiasis 2. Obstructing 6 mm proximal left ureteral calculus at the L3-4 level 3. No evidence of bowel obstruction. No evidence of free air 4. Normal appendix. No evidence of acute diverticulitis. ACT 112: Negative or not required by law. Electronically signed by: Jose Maria Perez M.D. 07/23/2020 8:02 AM
--- NOTE | 2020-07-23 09:39 | XRay Report ---
KUB CLINICAL HISTORY: Right ureteral stone. FINDINGS: 2 AP supine abdominal radiographs are compared to study dated 05/04/2016 and correlated with abdominal CT dated 07/22/2020. There is a nonobstructed abdominal bowel gas pattern noting moderate c olonic fecal retention. A 6 mm calculus in the right proximal ureter is again seen just below the tra nsverse process of L3. No additional calculi are clearly identified in either kidney. Tiny phlebolith s are observed in the pelvis. There is postoperative change from L5-S1 spinal fusion. IMPRESSION: A 6 mm obstructing calculus is again seen in the right proximal ureter as above. Electronically signed by: Alexander Dent M.D. 07/23/2020 9:38 AM
[2020-07-23] MEDS ORDERED: PROPOFOL IV EMULSION 10 MG/ML 20 ML VIAL IV ONE (09:57)
[2020-07-23] MEDS ORDERED: MIDAZOLAM HCL 1 MG/ML 2ML VIAL ONE (09:57)
[2020-07-23] MEDS ORDERED: fentaNYL citrate 100 MCG/2 ML VIAL ONE (09:57)
[2020-07-23] MEDS ORDERED: ONDANSETRON INJ 2 MG/ML 2 ML VIAL ONE (09:57)
[2020-07-23] MEDS ORDERED: LIDOCAINE HCL 2% 2 ML VIAL/AMP(20MG/ML) INFIL ONE (09:57)
[2020-07-23] MEDS: ENOXAPARIN INJ 40 MG/0.4 ML SYR SQ SCH (10:15)
[2020-07-23] MEDS ORDERED: PROMETHAZINE HCL 6.25 MG in SODIUM CHLORIDE 0.9% 50 ML IV STA (10:18)
[2020-07-23] MEDS: TOPIRAMATE 50 MG TAB PO SCH (10:19)
[2020-07-23] MEDS ORDERED: SCOPOLAMINE 1.5 MG TDSY TD ONE (11:11)
--- NOTE | 2020-07-23 11:13 | History & Physical Bridge Note ---
Date of Service July 23, 2020 History & Physical Bridge Note I have examined the patient, reviewed the History & Physical and in the interval since the performance of the History & Physical I have noted the following changes of clinical significance: no changes noted
--- NOTE | 2020-07-23 11:16 | Anesthesiology Consultation ---
Date of Service July 23, 2020 Assessment & Plan Chart Review Chart Review: Acceptable Risk for Surgery Consults Requested none History Surgery Operation Date: 07/23/20 10:15 Proposed Procedures p Cystoscopy, Right Retrograde Pyelogram, Right Stent Insertion - Jett Portillo MD Height/Weight Height: 5 ft 8 in Weight: 80.6 kg Allergies Allergy/AdvReac Type Severity Reaction Status Date / Time indomethacin Allergy Severe Rash Verified 07/22/20 22:45 citalopram [From Celexa] AdvReac Severe "crawling Verified 07/22/20 22:45 out of skin" procaine AdvReac Severe Nausea/Vomi Verified 07/22/20 22:45 ting tramadol AdvReac Severe "crawling Verified 07/22/20 22:45 out of skin" hydrocodone AdvReac Intermediate "crawling Verified 07/22/20 22:45 out of skin" Medications Home Medications Medication Instructions Recorded Confirmed Last Taken Humira Pen 40 mg SUBCUT Q14D 03/06/20 07/22/20 02/18/20 propranolol 80 mg capsule,24 80 mg PO HS 30 Days #30 cap 05/30/20 07/22/20 Unknown hr,extended release topiramate 50 mg tablet See Rx Instructions PO .COMPLEX 30 05/30/20 07/22/20 Unknown Days #90 tab fnsyrdcyay-itrzmwqkihcdg-koza 2 tab PO Q6H PRN 07/22/20 07/22/20 Unknown fremanezumab-vfrm [Ajovy Syringe] 225 mg SQ MONTHLY 07/22/20 07/22/20 Unknown Active Medications Generic Name Dose Route Start Last Admin Trade Name Kiana PRN Reason Stop Dose Admin Enoxaparin Sodium 40 mg 07/23/20 09:00 07/23/20 10:15 Enoxaparin Inj 40 Mg/0.4 Ml Syr SQ 08/22/20 08:59 Not Given QAM BLACK Hydromorphone HCl 0.5 mg 07/23/20 01:57 07/23/20 10:15 Hydromorphone Inj 0.5 Mg/0.5 Ml Syr IV 08/06/20 01:56 0.5 mg Q4H PRN Administration Pain Ceftriaxone Sodium 2,000 mg/ 70 mls @ 100 mls/hr 07/23/20 02:30 07/23/20 04:05 Dextrose IV 08/02/20 02:29 Infused Q24H BLACK Infusion Protocol Sodium Chloride 1,000 mls @ 100 mls/hr 07/23/20 01:57 07/23/20 01:57 Nss 1000ml IV 08/22/20 01:56 100 mls/hr .Q10H BLACK Administration Morphine Sulfate 4 mg 07/23/20 01:57 07/23/20 06:38 Morphine Sulfate 4 Mg/Ml 1 Ml Carp\\Vial IV 08/06/20 01:56 4 mg Q4H PRN Administration Pain Ondansetron HCl 4 mg 07/23/20 01:57 07/23/20 06:38 Ondansetron Inj 2 Mg/Ml 2 Ml Vial IV 08/22/20 01:56 4 mg Q6H PRN Administration Nausea Topiramate 50 mg 07/23/20 09:00 07/23/20 10:19 Topiramate 50 Mg Tab PO 08/22/20 08:59 Not Given QAM BLACK NPO Date Last Intake of Fluids: 07/22/20 Time Last Intake of Fluids: 17:00 Last Intake of Fluids Comment: ordered sips and chips Date Last Intake of Solids: 07/22/20 Time Last Intake of Solids: 17:00 Past Medical History Medical History Ankylosing spondylitis Chronic cough Diffuse myofascial pain syndrome Fibromyalgia-followed by rheumatology GERD (gastroesophageal reflux disease) Hyperlipidemia Migraine Right hip pain Strabismic amblyopia Past Family History Family History Father , age 50 Lung cancer Mother COPD (chronic obstructive pulmonary disease) Diabetes Denies family history of Asthma Past Surgical History Surgical History Fusion of spine L5-S1, HDW H/O abdominoplasty H/O rotator cuff surgery left History of adenoidectomy History of anesthesia reaction WITH LAST PROCEDURE EGD>"FAILED PROCEDURE BECAUSE KEPT COUGHING/WHEEZING WHILE TRYING TO PLACE IMPLANT DEVICE". History of arthroscopy left acl History of section History of colonoscopy History of discectomy History of endoscopic sinus surgery History of esophagogastroduodenoscopy (EGD) History of myringotomy right History of tonsillectomy History of tooth extraction wisdom Nausea and vomiting after administration of anesthetic agent S/P LASIK surgery of both eyes Status post hip surgery right Status post surgery Social History Smoking Status: Never smoker Do You Dip or Chew Tobacco: No Hx Alcohol Use: No Hx Substance Use: No substance use type: marijuana Substance Use Type Other:: medical marijuana license Last Used Substance Other:: ONLY USES RX MARIJUANA PRN Physical Exam Vital Signs Last Vital Signs Temp 36.9 C 07/23/20 10:57 Pulse 73 07/23/20 10:57 Resp 20 07/23/20 10:57 BP 131/87 07/23/20 10:57 Pulse Ox 96 07/23/20 10:57 Testing Laboratory Results 07/23/20 05:51 07/23/20 05:51 PT 10.8 Seconds (9.0-12.0) 07/23/20 05:51 INR 1.0 (0.9-1.1) 07/23/20 05:51 Urine Color Yellow 07/22/20 22:44 Urine Appearance Clear (Clear) 07/22/20 22:44 Urine pH 5.5 (4.5-7.5) 07/22/20 22:44 Ur Specific [place] 1.021 (1.000-1.030) 07/22/20 22:44 Urine Protein Negative (Negative) 07/22/20 22:44 Urine Glucose (UA) Negative (Negative) 07/22/20 22:44 Urine Ketones Negative (Negative) 07/22/20 22:44 Urine Nitrite Negative (Negative) 07/22/20 22:44 Ur Leukocyte Esterase Negative (Negative) 07/22/20 22:44 Urine WBC (Auto) 1-5 /hpf (0-5) 07/22/20 22:44 Urine RBC (Auto) >30 /hpf (0-4) H 07/22/20 22:44 U Hyaline Cast (Auto) 1-5 /lpf (0-5) 07/22/20 22:44 U Epithel Cells (Auto) >30 /lpf (0-5) H 07/22/20 22:44 Urine Bacteria (Auto) Negative (Negative) 07/22/20 22:44 Urine Test Negative (Negative) 07/22/20 22:44 07/22/20 07/22/20 22:44 22:44 Urine Test Negative POC Ur Test Pending
[2020-07-23] MEDS ORDERED: METOCLOPRAMIDE HCL INJ 5 MG/ML 2 ML VIAL IV PRN (11:18)
[2020-07-23] MEDS ORDERED: HYDROmorphone INJ 2 MG/ML SYR/VIAL IV PRN (11:18)
[2020-07-23] MEDS ORDERED: ATROPINE SULFATE 0.1 MG/ML 10ML SYR IV PRN (11:18)
[2020-07-23] MEDS ORDERED: ePHEDrine sulfate 50 MG/ML AMP IV PRN (11:18)
[2020-07-23] MEDS ORDERED: ONDANSETRON INJ 2 MG/ML 2 ML VIAL IV PRN (11:18)
[2020-07-23] MEDS ORDERED: fentaNYL citrate 100 MCG/2 ML VIAL IV PRN (11:18)
[2020-07-23] MEDS ORDERED: PROMETHAZINE HCL 12.5 MG in SODIUM CHLORIDE 0.9% 50 ML IV PRN (11:18)
[2020-07-23] MEDS ORDERED: GLYCOPYRROLATE 0.2 MG/ML VIAL ONE (11:37)
[2020-07-23] MEDS ORDERED: DEXAMETHASONE SOD INJ 4 MG/ML VIAL ONE (11:44)
--- NOTE | 2020-07-23 12:00 | Post Operative Brief Note ---
PG Immediate Post Op with CF Date of Surgery July 23, 2020 Pre & Post Diagnosis Operation Date: 07/23/20 10:15 Pre-Op Diagnosis: UROLITHIASIS Post-Op Diagnosis: UROLITHIASIS I identified the patient and participated in the time-out.: Yes Procedure Operation Date: 07/23/20 10:15 Actual Procedures p Cystoscopy, Right Retrograde Pyelogram, Right Stent Insertion(Right) - Jett Portillo MD Surgeon Jett Portillo MD Service Trainer none Estimated Blood Loss 0 Findings Consistent with Post-Op Diagnosis Specimens Specimen Description: none per surgeon
[2020-07-23] MEDS ORDERED: DIATRIZOATE MEGLUMINE 30% 100ML VIAL INSTIL ONE (12:06)
--- NOTE | 2020-07-23 12:08 | Fluoroscopy Report ---
FL retrograde includes kub HISTORY: Right-sided retrograde pyelogram FLUOROSCOPY TIME: 69 seconds FINDINGS: 2 fluoroscopic spot images were submitted for review. Retrograde opacification of the right renal collecting system with placement of a right ureteral stent. The ureteral stent appears in good position. IMPRESSION: Fluoroscopy provided for right ureteral stent placement which appears in good position. ACT 112: Negative or not required by law. Electronically signed by: Pa Tovar M.D. 07/23/2020 12:07 PM
--- NOTE | 2020-07-23 12:43 | Anesthesiology Progress Note ---
Date of Service July 23, 2020 Anesthesia Post Procedure Vital Signs Vital Signs: Temp Pulse Pulse Pulse Resp BP BP 07/23/20 12:30 36.4 C L 66 13 07/23/20 12:20 69 15 07/23/20 12:10 53 L 15 07/23/20 12:03 36.2 C L 58 L 16 07/23/20 10:57 36.9 C 73 20 131/87 07/23/20 07:18 36.9 C 72 16 120/80 07/23/20 01:55 63 16 121/81 07/23/20 01:45 36.2 C L 63 16 121/81 07/23/20 01:30 74 20 110/71 07/23/20 01:00 66 17 111/76 07/23/20 00:30 55 L 20 113/79 07/23/20 00:01 62 23 113/82 07/22/20 23:41 65 19 110/74 07/22/20 22:10 36.5 C 72 20 129/94 BP Pulse Ox 07/23/20 12:30 119/75 96 07/23/20 12:20 115/77 98 07/23/20 12:10 99/62 L 100 07/23/20 12:03 96/58 L 99 07/23/20 10:57 96 07/23/20 07:18 94 07/23/20 01:55 97 07/23/20 01:45 97 07/23/20 01:30 99 07/23/20 01:00 99 07/23/20 00:30 99 07/23/20 00:01 99 07/22/20 23:41 97 07/22/20 22:10 98 Pain Intensity Right Back: Pain Intensity: 5 Transfer of Care Handoff Completed per policy Notes Mental Status: alert / awake / arousable and participated in evaluation Patient Amnestic to Procedure: Yes Nausea / Vomiting: adequately controlled Pain: adequately controlled Airway Patency, RR, SpO2: stable & adequate BP & HR: stable & adequate Hydration State: stable & adequate Anesthetic Complications: no major complications apparent
--- NOTE | 2020-07-23 12:49 | Hospitalist Progress Note ---
Date of Service July 23, 2020 Assessment & Plan (1) Right ureteral stone: Abdomen pelvis CT without contrast: Obstructing 6 mm proximal left ureter stone at the L3-L4 level causing mild upstream hydroureteronephrosis. Additional punctate nonobstructing right kidney stone. L UA: 3+ blood, negative nitrite, negative LE, >30 RBC, >30 epithelial, negative bacteria Pain and nausea control Continue IV ceftriaxone Continue IVF with NSS@100 mls/hr Urology consulted - for cystoscopy today (2) Hydronephrosis of right kidney: As above (3) Migraine: Continue propranolol 80 mg ER, topiramate 50 mg every morning and 100 mg every evening. Fioricet as needed (4) Ankylosing spondylitis: On Humira Patient with extensive history including lumbar disc herniation, lumbar radicular pain, history of lumbosacral spine surgery and pain management injections (5) [place] [facility] [place]mission and Anticipated Discharge Date Admission Date: July 23, 2020 Results & Data Results & Data ([facility] Vital Signs (Past 12 Hours) Vital Signs Temp Pulse Pulse Pulse Resp BP BP 07/23/20 12:30 36.4 C L 66 13 07/23/20 12:20 69 15 07/23/20 12:10 53 L 15 07/23/20 12:03 36.2 C L 58 L 16 07/23/20 10:57 36.9 C 73 20 131/87 07/23/20 07:18 36.9 C 72 16 120/80 07/23/20 01:55 63 16 121/81 07/23/20 01:45 36.2 C L 63 16 121/81 07/23/20 01:30 74 20 110/71 07/23/20 01:00 66 17 111/76 BP Pulse Ox 07/23/20 12:30 119/75 96 07/23/20 12:20 115/77 98 07/23/20 12:10 99/62 L 100 07/23/20 12:03 96/58 L 99 07/23/20 10:57 96 07/23/20 07:18 94 07/23/20 01:55 97 07/23/20 01:45 97 07/23/20 01:30 99 07/23/20 01:00 99 PG Care Time/CCT Total # of Minutes Spent Total Time Spent with Patient: Total time spent is greater than 50% in coordination of care (as documented) at patient's floor/unit and/or counseling patient: Coding Level of Care Code 10108 Subseq Hosp Care Lvl 2 Diagnoses Right ureteral stone N20.1 Hydronephrosis of right kidney N13.30 Migraine G43.909 Intractability: not intractable Migraine type: unspecified Status migrainosus presence: without status migrainosus Ankylosing spondylitis M45.9 Ankylosing spondylitis location: unspecified site of spine DVT prophylaxis Z29.9 (1) Migraine Intractability: not intractable Migraine type: unspecified Status migrainosus presence: without status migrainosus Qualified Code(s): G43.909 - Migraine, unspecified, not intractable, without status migrainosus (2) Ankylosing spondylitis Ankylosing spondylitis location: unspecified site of spine Qualified Code(s): M45.9 - Ankylosing spondylitis of unspecified sites in spine
[2020-07-23] MEDS ORDERED: PROPRANOLOL HCL LA 80 MG CAPCR PO SCH (21:00)
[2020-07-23] MEDS ORDERED: TOPIRAMATE 50 MG TAB PO SCH (21:00)
[2020-07-24] MEDS: cefTRIAXone SODIUM 2,000 MG in DEXTROSE 5% 50 ML IV SCH (02:58)
--- NOTE | 2020-07-24 03:34 | Operative Report (OR) ---
DATE OF OPERATION: 07/23/2020 PREOPERATIVE DIAGNOSIS: Proximal right ureteral stone. POSTOPERATIVE DIAGNOSIS: Proximal right ureteral stone. PROCEDURES PERFORMED: Cystoscopy, right retrograde and right stent. SURGEON: Jett Portillo MD ANESTHESIA: General. INDICATIONS: The patient is a 44-year-old female with a right ureteral stone, 6 mm proximal near the kidney, who presented in severe pain. The patient was explained the options including placing a stent and being able to do lithotripsy several days later versus attempting an ureteroscopy. We discussed it and the patient, given this scenario, chose to have the stent placed and to being discharged for ESWL. DESCRIPTION OF THE PROCEDURE: The patient was taken to the operating room with Venodyne stockings. She had been given preoperative antibiotics. She was prepped and draped in the usual sterile fashion. A 22-Congolese cystoscope was used and because there were problems with the camera, I had to look directly through the eye of the piece to do the procedure, which made it fortunate to not try to do ureteroscopy given it is mostly digital. I was able to cannulate the right ureteral orifice. I did a retrograde. There was clearly a high-grade obstruction in the proximal ureter. Placed a wire beyond this and then placed a 5-Congolese 26 cm double-J stent beyond the stone and it appeared to be in good position in the renal pelvis and there was a good curl in the bladder. After this, the wire was removed and there also appeared to be a hydronephrotic drip. At the end of the procedure, bladder was emptied. Spot checks were taken of the stent and the patient was transferred to the recovery room in stable condition. I attest to the content of the Intraoperative Record and any orders documented therein. Any exception s are noted below.
[2020-07-24] MEDS: TOPIRAMATE 50 MG TAB PO SCH (07:45)
[2020-07-24] MEDS: ENOXAPARIN INJ 40 MG/0.4 ML SYR SQ SCH (07:46)
[2020-07-24] MEDS: SODIUM CHLORIDE 0.9% 1000ML 1,000 ML IV SCH (07:49)
[2020-07-24 08:05] LABS: Hemoglobin 12.3 g/dL (12.0-16.0); Mean Corpuscular Hemoglobin 31.6 pg (25-34); Mean Corpuscular Hgb Conc 34.2 g/dL (32-36); Mean Corpuscular Volume 92.5 fL (80-100); Mean Platelet Volume 10.6 fL (7.4-10.4); Platelet Count 176 K/uL (130-400); RDW Coefficient of Variation 13.3 % (11.5-14.5); Red Blood Count 3.89 M/uL (4.2-5.4); White Blood Count 9.26 K/uL (4.8-10.8)
[2020-07-24 08:07] LABS: BUN Creatinine Ratio 21.9 (10-20); Calcium 8.4 mg/dl (8.5-10.1); Creatinine Clr Calc Pharmacy 109.2 ml/min; Est GFR (Non-African American) 99.2; Potassium 3.5 mmol/L (3.5-5.1)
--- NOTE | 2020-07-24 09:40 | Discharge Summary ---
Date of Service July 24, 2020 Admission HPI Per Admitting Provider 44-year-old female with past medical history migraine headaches, ankylosing spondylitis, extensive back history including lumbar disc herniation, lumbar radicular pain, history of lumbosacral spine surgery and pain management injections presents with concerns of right lower flank pain that feels different than her usual back pain patient notes. Pain started all of a sudden around 7 PM. Described as sharp stabbing intermittent pain with radiation to the 'whole back.' 9 out of 10 on severity scale. No known exacerbating factors. Patient thinks pain gets alleviated with certain movements. Patient tried ibuprofen, Percocet from an old prescription, muscle relaxer, which did not seem to help much. Patient notes she has never had pain quite like this ever before. Associated nausea, but patient notes that she usually gets nauseous when she is in pain. Patient otherwise denies any fevers, chills, sweats, vomiting, diarrhea, chest pain, shortness of breath, abdominal pain, urinary symptoms of dysuria/urgency/hesitancy, numbness, tingling, trauma, known sick contacts or recent travel anywhere. Patient no other acute concerns or complaints. Prior labs: Largely unremarkable CBC CMP UA: 3+ blood, negative nitrite, negative LE, >30 RBC, >30 epithelial, negative bacteria Abdomen pelvis CT without contrast ([facility]): Obstructing 5.8 mm proximal right ureter stone at the L3-L4 level causing mild upstream hydroureteronephrosis. Additional punctate nonobstructing right kidney stone. Left kidney and collecting system are normal. ER course: IV Toradol 30 mg, IV morphine 4 mg x 2, IV Zofran 4 mg, NSS 1 L Principal Diagnosis Ureteral stone Discharge Exam Constitutional WD/WN, vitals as above Respiratory normal respiratory effort, lungs clear to auscultation Cardiovascular RRR, no murmur, no edema Gastrointestinal (Abdomen) normal bowel sounds, soft, nontender, no hepatosplenomegaly Musculoskeletal no cyanosis or clubbing, extremities motor strength 5/5 Skin no rashes, warm and dry Neurologic moves all extremities and awake Psychiatric A+Ox3, euthymic affect Discharge Data Allergies Allergy/AdvReac Type Severity Reaction Status Date / Time indomethacin Allergy Severe Rash Verified 07/22/20 22:45 citalopram [From Celexa] AdvReac Severe "crawling Verified 07/22/20 22:45 out of skin" procaine AdvReac Severe Nausea/Vomi Verified 07/22/20 22:45 ting tramadol AdvReac Severe "crawling Verified 07/22/20 22:45 out of skin" hydrocodone AdvReac Intermediate "crawling Verified 07/22/20 22:45 out of skin" Consultations 07/23/20 00:07 ED Decision to Admit Stat 07/23/20 01:57 Consult Urology Routine Procedures Performed Operation Date: 07/23/20 10:15 Actual Procedures p Right Stent Insertion(Right) - Jett Portillo MD s Cystoscopy, Right Retrograde Pyelogram, - Jett Portillo MD Ordered Studies 07/22/20 22:28 CT abd pelvis wo con Urgent 07/23/20 10:26 FL retrograde includes kub Routine Hospital Course (1) Right ureteral stone: Abdomen pelvis CT without contrast: Obstructing 6 mm proximal right ureter stone at the L3-L4 level causing mild upstream hydroureteronephrosis. Additional punctate nonobstructing right kidney stone. L UA: 3+ blood, negative nitrite, negative LE, >30 RBC, >30 epithelial, negative bacteria Pain and nausea control Given IV ceftriaxone inpatient - will receive 3 more days of cipro at discharge per urology rec Urology consulted - cystoscopy, right retrograde pyelogram, right stent placement on 07/[address] Portillo. Will follow up with urology in the office for lithotripsy tomorrow (2) Hydronephrosis of right kidney: As above (3) Migraine: Continue propranolol 80 mg ER, topiramate 50 mg every morning and 100 mg every evening. Fioricet as needed - cautioned not to take this at home with the Percocet (4) Ankylosing spondylitis: On Humira Patient with extensive history including lumbar disc herniation, lumbar radicular pain, history of lumbosacral spine surgery and pain management injections (5) DVT prophylaxis: SCDs, enox Total Time Total Time Spent Total Time Spent (In Minutes): greater than 30 minutes Discharge Plan Discharge Items Patient Disposition: Home - Self-Care Reason For Visit: UROLITHIASIS Discharge Diagnosis: Urolithiasis Activity: Resume your previous activity Non-emergency contact: Primary Care Provider and Urologist Call non-emergency contact if: you have any medication questions, your symptoms worsen and you have a fever Follow-up/Referrals: Jett Portillo MD [Physician] - 07/24/20 2:00 pm Emma Henderson [Primary Care Provider] - Diet: Regular Addtl Attending Provider Instructions: (1) Right ureteral stone: You had an obstructing 6 mm ureter stone for which you were taken to the OR and a ureteral stent was placed. You will need to take 3 more days of antibiotics for a total of 5 days. Do not take Percoset (oxycodone - acetaminophen) with your Fiorecet (blksabufkq-zlprqhauaurmh-tbumxvxf) as they may interact to be overly sedating. Do not take more than 3,000 mg of acetaminophen in [address] while taking Percoset Pending Studies at Discharge: No Stand-Alone Forms: My [facility] [email or web address], Opioid Pain Management, Smoking Cessation Medications and DC Order Prescriptions: New oxycodone-acetaminophen 5-325 mg tablet 1 tab PO Q6H Qty: 8 RF: 0 ciprofloxacin HCl 500 mg tablet 500 mg PO BID Qty: 6 RF: 0 Continued topiramate [Topamax] 50 mg tablet See Rx Instructions PO .COMPLEX 30 Days Qty: 90 RF: 5 propranolol [Inderal LA] 80 mg capsule,extended release 24 hr 80 mg PO HS 30 Days Qty: 30 RF: 5 Humira Pen 40 mg/0.8 mL Pen Injector Kit 40 mg SUBCUT Q14D RF: 0 yvcuqaqjpn-jctvfcgpvvsxk-delo 50-325-40 mg tablet 2 tab PO Q6H PRN (Reason: Severe Headache) RF: 0 Ajovy Syringe 225 mg/1.5 mL syringe 225 mg SQ MONTHLY RF: 0 Discharge Orders: Discharge Order (Routine); Ordered 07/24/20 Ordered By: Jimbo Stanley/Other Patient Handouts: Having a Ureteral Stent, Identifying Kidney Stones Admission Data Admit Date/Time: 07/23/20 01:22 Attending Provider: Jimbo Gamez Admit Provider: Ranjan Slade Primary Care Provider: Emma Henderson Other Providers: Sergo Bailey ; Anish Maher Other Interventions: Discharge Summary Assessment (RN) Last Done: 07/24/20 10:46 Supervising Physician Co-Signing Physician Notes Patient seen and examined on the day of discharge. I agree with the discharge summary by Mary FIERRO. I have reviewed the chart including labs, imaging and plans for discharge. patient tolerating ureteral stent, still has pain with moving, urinating plans to follow up with urology tomorrow for lithotripsy she is eating well, vitals stable cleared for d/c by urology - Ureteral stone: s/p stenting, plan for lithotripsy on 07/25 discharge on Cipro for antibiotic coverage and Percocet PRN for pain Coding Level of Care Code D/C Day Management >30 mins Diagnoses Right ureteral stone N20.1 Hydronephrosis of right kidney N13.30 Migraine G43.909 Intractability: not intractable Migraine type: unspecified Status migrainosus presence: without status migrainosus Ankylosing spondylitis M45.9 Ankylosing spondylitis location: unspecified site of spine DVT prophylaxis Z29.9
--- NOTE | 2020-07-25 05:23 | Billing Data ---
Date of Service July 25, 2020 Coding Level of Care Code 62433 Initial Inpt Care Lvl 2
== END 2020-07-24 11:09 | disposition home or self-care (01) | DRG 661 ==
LOC: ED 22:05 → SUATTDRO 07-23 01:22 → 3N 07-23 01:22

== ENCOUNTER 2025-02-21 06:42 | Observation (INO) ==
--- NOTE | 2025-02-13 08:36 | Anesthesiology Consultation ---
Date of Service February 13, 2025 Assessment & Plan (1) Encounter for pre-operative examination: - check urine test STAT am DOS. - procaine allergy. - Per jig box operator on 02/12/25: No known infectious disease contacts, current infectious disease symptoms in past 10 days or COVID positive test result in the past 30 days. Chart Review Chart Review: Acceptable Risk for Surgery and Patient NOT seen in Pre Admission Testing History Surgery Operation Date: 02/21/25 08:15 Proposed Procedures p Laparoscopic Cholecystectomy - Win Florian DO s with Intraoperative Esophagogastroduodenoscopy - Win Florian, DO Height/Weight Height: 5 ft 8 in Weight: 81.193 kg Allergies Allergy/AdvReac Type Severity Reaction Status Date / Time indomethacin Allergy Severe Rash Verified 02/12/25 14:20 citalopram [From Celexa] AdvReac Severe "crawling Verified 02/12/25 14:20 out of skin" procaine AdvReac Severe Nausea/Vomi Verified 02/12/25 14:20 ting hydrocodone AdvReac Intermediate "crawling Verified 02/12/25 14:20 out of skin" lamotrigine [From Lamictal] AdvReac Mild rash Verified 02/12/25 14:20 Medications Home Medications Medication Instructions Recorded Confirmed Last Taken cetirizine 10 mg tablet (Zyrtec) 10 mg PO DAILY PRN allergy relief 11/20/21 02/12/25 Unknown cyclobenzaprine 10 mg tablet 10 mg PO BID PRN muscle spasm #60 05/09/23 02/12/25 Unknown tabs cyanocobalamin (vitamin B-12) 1,000 mcg IM MONTHLY 07/19/23 02/12/25 2 Weeks Ago 1,000 mcg/mL injection solution ~07/05/23 naproxen 500 mg tablet 500 mg PO BID #180 tabs 11/16/23 02/12/25 Unknown levothyroxine 100 mcg capsule 100 mcg PO QAM 01/19/24 02/12/25 Unknown naltrexone 1.5 mg capsule 4.5 mg PO HS 01/19/24 02/12/25 Unknown montelukast 10 mg tablet 10 mg PO DAILY PRN allergies 05/03/24 02/12/25 Unknown (Singulair) tofacitinib 11 mg tablet,extended 11 mg PO QAM 09/03/24 02/12/25 Unknown release 24 hr galcanezumab-gnlm 120 mg/mL 120 mg subcut MONTHLY 01/22/25 02/12/25 Unknown subcutaneous pen injector (Emgality Pen) meloxicam 15 mg tablet 15 mg PO DAILY PRN Pain 01/22/25 02/12/25 Unknown propranolol 120 mg capsule,24 120 mg PO HS 01/22/25 02/12/25 Unknown hr,extended release tramadol 50 mg tablet 50 mg PO TID PRN Pain 01/22/25 02/12/25 Unknown Lactobacillus acidophilus 10 10,000 mmu cells PO DAILY 02/12/25 02/12/25 Unknown billion cell capsule (Probiotic) Mag 7 1 tab PO HS 02/12/25 02/12/25 Unknown Med Choice 1 tab PO DAILY 02/12/25 02/12/25 Unknown biotin 10,000 mcg chewable tablet 10,000 mcg PO DAILY 02/12/25 02/12/25 Unknown (Hair, Skin and Nails (biotin)) colchicine 0.6 mg tablet 0.6 - 1.2 mg PO DAILY PRN gout 02/12/25 02/12/25 Unknown eletriptan 40 mg tablet 40 mg PO UD PRN migraines 02/12/25 02/12/25 Unknown hydrochlorothiazide 12.5 mg tablet 12.5 mg PO QAM 02/12/25 02/12/25 Unknown magnesium 250 mg tablet 450 mg PO HS 02/12/25 02/12/25 Unknown omeprazole 40 mg capsule,delayed 40 mg PO QAM 02/12/25 02/12/25 Unknown release Past Medical History Medical History (Updated 02/13/25 @ 08:31 by Tanya Levin PA-C) Ankylosing spondylitis follows with dr. ryan rheum at [place] Bilateral nephrolithiasis states currently has 4 stones- not causing issues Cauda equina syndrome (2014) hx- with first spinal surgery- no prob now Chronic SI joint pain follows with pain clinic in [place]- will have spin cord stim in future Dysphagia "it feels like my throat is smaller" Fibromyalgia Gallbladder calculus with nonacute cholecystitis GERD (gastroesophageal reflux disease) History of COVID-19 3x (last dx 02/21/23) resolved History of kidney stones Hx of Clostridium difficile infection (04/2015) [facility], after second back surgery- treated/ resolved Hx of migraines had one today Hyperlipidemia Hypothyroid Left ureteral stone Lumbar disc herniation L5- S2- sees pain mgmt at [place] pain and corporate real estate specialist- will be getting spinal cord stimulator when gallbladder issue resolved Plantar fasciitis of left foot Past Family History Family History Father , age 50 Lung cancer Mother Diabetes COPD (chronic obstructive pulmonary disease) Brother Hypertension Other No family history of adverse response to anesthesia Denies family history of Asthma Past Surgical History Surgical History Fusion of spine (2014) L5-S1 H/O abdominoplasty H/O arthroscopy of shoulder (2021) left (bone spur) H/O breast augmentation H/O lithotripsy (07/2020) H/O rotator cuff surgery (2015) left History of anesthesia reaction WITH EGD>"FAILED PROCEDURE BECAUSE KEPT COUGHING/WHEEZING WHILE TRYING TO PLACE IMPLANT DEVICE". History of arthroscopy (2007) left acl History of section x 1 History of colonoscopy History of discectomy (2014) lumbar History of endometrial ablation (03/2023) Dr Redd History of endoscopic sinus surgery History of esophagogastroduodenoscopy (EGD) History of myringotomy right History of tonsillectomy and adenoidectomy History of tooth extraction Hx of foot surgery (2009) left, plantar fascitis Hx of partial thyroidectomy (12/2023) biopsies showed high risk of cancer Nausea and vomiting after administration of anesthetic agent S/P cystoscopy with ureteral stent placement (06/2020) S/P LASIK surgery of both eyes Status post hip surgery (05/23/24) right 2015 & 2023- ([facility]) Strabismus repaired Social History Smoking Status: Never smoker Do You Dip or Chew Tobacco: No Hx Alcohol Use: No Alcohol type: beer Hx Substance Use: No substance use type: does not use Substance Use Type Other:: medical marijuana license Last Used Substance Other:: ONLY USES RX MARIJUANA PRN Lab Results Anesthesia Preop Results Results Anesthesia Widget: WBC 5.51 K/ul (4.8-10.8) 01/08/25 Hgb 13.1 g/dl (12.0-16.0) 01/08/25 Hct 39.1 % (37.0-47.0) 01/08/25 Plt 261 K/uL (130-400) 01/08/25 Na 137 mmol/L (136-145) 01/08/25 K 3.7 mmol/L (3.5-5.1) 01/08/25 Cl 101 mmol/L (98-107) 01/08/25 CO2 32 mmol/L (21-32) 01/08/25 BUN 24 mg/dl (6-23) H 01/08/25 Creat 0.71 mg/dl (0.6-1.2) 01/08/25 Glucose Level 59 mg/dl (70-99(Fasting)) L 01/08/25 Urine Color Yellow 01/08/25 Urine Appearance Cloudy (Clear) A 01/08/25 Urine pH 7.0 (4.5-7.5) 01/08/25 Urine Specific [place] 1.023 (1.000-1.030) 01/08/25 Urine Protein Negative (Negative) 01/08/25 Urine Glucose (UA) Negative (Negative) 01/08/25 Urine Ketones Trace (Negative) H 01/08/25 Urine Blood Negative (Negative) 01/08/25 Urine Nitrite Negative (Negative) 01/08/25 Urine Bilirubin Negative (Negative) 01/08/25 Urine Urobilinogen Negative (Negative) 01/08/25 Urine Leukocyte Esterase Negative (Negative) 01/08/25 Urine WBC (Auto) 0-5 /hpf (0-5) 01/08/25 Urine RBC (Auto) 3-5 /hpf (0-2) H 01/08/25 Urine Hyaline Casts (Auto) 0-2 /lpf (0-2) 01/08/25 Urine Epithelial Cells (Auto) 6-10 /hpf (0-2) H 01/08/25 Urine Bacteria (Auto) 1+ (None Seen) H 01/08/25 Urine Amorphous Sediment Present (None Prsent) A 01/08/25 Urine Yeast Present (None Prsent) A 01/08/25
--- OUTSIDE RECORDS SUMMARY | 2025-02-21 07:05 | External Medical Summary | Summary of Care ---
Author Name Unknown Organization [facility] Address [address] [facility] [place] [address] Phone [phone] Care Team Providers Care Obstetrics And Gynecology Professor Name Role Phone Madie Henderson MD Primary Care Provi saleem Reason for Visit * Reason Comments Return Neuro Encounter Details Date Type Department Care Team (Late st Contact Info) Description 02/18/2025 1:00 PM EDT Office Visit Neurology [facility] [address] [facility] [place] [address] Savanah Saleem MD [address] [facility] [address] Intractable chronic migraine without aura and without status migrainosus* Allergies Active Allergy Reactions Criticality Noted Date Comments Anesthetics, Amide 01/05/2001 ?reaction novacaine as child. Has had lidocaine patches in the past to de-sensitize herself. No current issues with lidocaine. Citalopram Hydrobromide Hives High 03/11/2011 Hydrocodone Neuro complications (Please comment) 12/17/2010 Hallucinations Indomethacin 03/05/2016 itching Lamotrigine 02/19/2021 rash Procaine High 08/10/2022 Other reaction(s): Nausea/Vomiting Tramadol High 08/10/2022 Other reaction(s): "crawling out of skin" documented as of this encounter (statuses as of 02/18/2025) Medications Cyclobenzaprine HCl 10 MG Oral Tablet (Flexeril) TAKE 1 TABLET BY MOUTH TWO TIMES DAILY NEEDED FOR MUSCLE SPASM 12/31/19 22 Active Fluticasone-Salmeterol 250-50 MCG/DOSE Inhalation Aerosol Powder Breath Activated (Advair Diskus) INHALE 1 PUFF BY MOUTH TWO TIMES DAILY 60 Each 5 01/20/20 22 Active Additional Information Patient not taking.Reported on 02/18/2025 ZyrTEC Allergy 10 MG Oral Capsule (Cetirizine HCl) Take 1 Capsule by mouth in the morning. Active Fluticasone Propionate 50 MCG/ACT Nasal Suspension Administer 1 Guild into nostril in the morning. Active predniSONE 5 MG Oral Tablet (Deltasone) Take 1 pill daily for now. 30 Tablet 1 01/20/20 23 Active Additional Information Patient not taking.Reported on 02/18/2025 Ibuprofen-Famotidine 800-26.6 MG Oral Tablet (Duexis)Indications:HL A-B27 spondyloarthropathy 1-2 times a day as needed 180 Tablet 3 03/23/20 23 Active Mupirocin 2 % External Ointment (Bactroban) 0 23 Active oxyCODONE HCl 5 MG Oral Tablet (Oxy IR) TAKE 1 TABLET BY MOUTH EVERY 4 TO 6 HOURS NEEDED FOR MODERATE TO SEVERE PAIN 01/04/20 23 Active Naltrexone HCl (Pain) 4.5 MG Oral Capsule Start: 10/26/23 13:44:00 EST, 1 tab, PO, Daily, Disp# 30 tab, Requires compounding pharmacy, given to patient 10/26/19 24 Active Levothyroxine Sodium 100 MCG Oral Tablet (Levoxyl) Take 1 Tablet by mouth in the morning. Active Semaglutide(0.25 or 0.5MG/DOS) 2 MG/1.5ML Solution Pen-injector (Ozempic) Inject under the skin once a week. Active traMADol HCl 50 MG Oral Tablet (Ultram) Take 1 Tablet by mouth in the morning and 1 Tablet before bedtime. 03/16/20 24 Active Cyanocobalamin 1000 MCG/ML Injection Solution (Cyanocobalamin) Inject 1 mL into a large muscle every 30 days. 05/19/20 23 Active hydroCHLOROthiazide 12.5 MG Oral Capsule Take 1 Capsule by mouth in the morning. Active Cimzia (2 Syringe) 200 MG/ML Subcutaneous Prefilled Syringe Kit (Certolizumab Pegol)Indications:HLA- B27 spondyloarthropathy INJECT 1 SYRINGE UNDER THE SKIN EVERY 2 WEEKS 2 Each 2 06/29/20 24 Active Additional Information Patient not taking.Reported on 02/18/2025 Montelukast Sodium 10 MG Oral Tablet (Singulair) TAKE 1 TABLET BY MOUTH EVERY EVENING 90 Tablet 3 10/01/20 24 Active Colchicine 0.6 MG Oral Tablet Take 1 Tablet by mouth in the morning. 10/26/19 25 Active Meloxicam 15 MG Oral Tablet (Mobic) Take 1 Tablet by mouth in the morning. Active Xeljanz XR 11 MG Oral Tablet Extended Release 24 Hour Take 1 Tablet by mouth Every Month. Active Eletriptan Hydrobromide 40 MG Oral Tablet (Relpax) 1 at onset of migraine may repeat in 2 hours max 2 doses in 24 hours 10 Tablet 5 11/15/19 25 Active Propranolol HCl ER 120 MG Oral Capsule Extended Release 24 Hour Take one daily at bedtime (dose reduction) 30 Capsule 5 11/16/19 25 Active Emgality 120 MG/ML Subcutaneous Solution Auto-injector (Galcanezumab-gnlm) Inject 1 ml under the skin once monthly 1 mL 5 12/10/19 25 Active documented as of this encounter (statuses as of 02/18/2025) Active Problems Problem Noted Date Diagnosed Date Fibromyalgia 03/03/2023 Numbness and tingling in both hands 03/03/2023 Neck pain 03/03/2023 Rhinitis, nonallergic 04/30/2021 Mild intermittent asthma without complication Chronic cough 04/04/2021 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 Menstrual migraine 08/05/2015 Cauda equina compression 02/21/2015 Overview (05/01/2015): was paralyzed Seborrheic dermatitis 01/30/2014 Overview (07/25/2017): ICD-10 update of inactive term Intradermal nevus 01/30/2014 Milia 01/30/2014 Multiple pigmented nevi 01/30/2014 Scar conditions and fibrosis of skin 01/30/2014 Lumbar herniated disc 03/29/2013 Hyperlipidemia 05/11/2012 Kidney stone on right side 03/15/2012 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 RECURRENT URIN TRACT INFECTION 12/17/2010 Other psychological or physi isa stress, not elsewhere classified(V62.89) 12/17/2010 documented as of this encounter (statuses as of 02/18/2025) Resolved Problems Problem Noted Date Diagnosed Date Resolved Date Dyslipidemia, goal LDL below 160 08/31/2011 03/02/2012 Panic disorder 01/13/2011 08/31/2011 documented as of this encounter (statuses as of 02/18/2025) Immunizations Name Administration Dates Next Due COVID-19 mRNA, LNP-s, No Pre serve, 2-Dose Series (Moderna) 06/10/2021,12/17/2020,11/19/2020 COVID-19 mRNA, LNP-s, No Pre serve, 2-Dose Series (Pfizer) 11/10/2021 HepA Inact/HepB Recomb>=18yrs old 08/11/2021,02/2021,01/23/2021 Influenza Vaccine, Live, Int ranasal, Trivalent (Flumist) 07/16/2013 Pneumococcal Conjugate Vacc, 13 Valent (Prevnar) 10/07/2021,05/20/2021 Seasonal Influenza Vac., MDV , IM, 0.5 mL (Fluzone) 07/24/2020,07/29/2014,07/10/2012,2010,08/18/2010 Seasonal Influenza, PF, 6 M & above, IM , (FluLaval or Fluzone) 07/11/2021,07/17/2020,08/04/2019 Seasonal Influenza, Quadriva lent, No Preserve, IM 07/05/2018,07/20/2017,07/31/2016,2014 TDAP (age 10 and older)(Boostrix) 01/19/2021,06/2009 TDAP, Age 7 and older, IM (Adacel) 01/19/2021, documented as of this encounter Social History Tobacco Use Types Packs/Day Years Used Date Smoking Tobacco: Never Smokeless Tobacco: Never Comments:No passive smoke ex posures Alcohol Use Standard Drinks/Week Comments No 0 (1 standard drink = 0.6 oz pur e alcohol) Comments No Sex and Gender Information Value Date Recorded Sex Assigned at Female 08/03/2021 8:52 AM EDT Legal Sex Female 5:07 AM EST Gender Identity Female 08/03/2021 8:52 AM EDT Sexual Orientation Straight 08/03/2021 8: 52 AM EDT Occupation Industry Job Start Date Job End Date homemaker Not on file Not on file Not on file documented as of this encounter Last Filed Vital Signs Vital Sign Reading Time Taken Comments Blood Pressure 114/70 02/18/2025 1:02 PM EDT Pulse 85 02/18/2025 1:02 PM EDT Temperature 36.1 °C (97 °F) 02/18/2025 1:02 PM EDT Respiratory Rate - - Oxygen Saturation 97% 02/18/2025 1:02 PM EDT Inhaled Oxygen Concentration - - Weight 84.7 kg (186 lb 12.8 oz) 02/18/2025 1:02 PM EDT Height - - Body Mass Index 28.4 11/15/2024 1:01 PM EST documented in this encounter Progress Notes * Savanah Saleem MD - 02/18/2025 1:22 PM EDT CLINIC NOTES Neurology [facility] [address] [place] [address] Dina Daniel : 1975 NEUROLOGY OUTPATIENT NOTE 02/18/2025 HISTORY: The patient is referred for consultation by Dr. Henderson, who will be receiving a copy of this note. Patient comes today in follow-up of chronic migraine she is switch to Emgality and remains on Inderal although a lower dose this seems to be managing her headaches well in the headaches are less frequent and more easy to manage. She is taking Relpax on an as needed basis. They have not been any adverse effects. Lightheadedness resolve lowering the dose of Inderal. 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 Psoriatic arthritis (HCC) RECURRENT URIN TRACT INFECTION 12/17/2010 S/P spinal surgery 2015 Seborrheic dermatitis 01/30/2014 ICD-10 update of inactive term Status post hip surgery Patient Active Problem List Diagnosis Plantar fibromatosis RECURRENT URIN TRACT INFECTION Other psychological or physical stress, not elsewhere classified(V62.89) Kidney stone on right side Hyperlipidemia Lumbar herniated disc Seborrheic dermatitis Intradermal nevus Milia Multiple pigmented nevi Scar conditions and fibrosis of skin Cauda equina compression (HCC) Menstrual migraine HLA-B27 spondyloarthropathy Chronic cough Rhinitis, nonallergic Mild intermittent asthma without complication Fibromyalgia Numbness and tingling in both hands Neck pain Past Surgical History: Procedure Laterality Date DELIVERY DENTAL SURGERY PROCEDURE NEC 04/2016 DISKECTOMY,SINGLE INTERSPACE 02/2015 S1 ENLARGEMENT OF BREAST W/IMPLANT 12/17/2011 MAMMOPLASTY AUGMENTATION WITH IMPLANT performed by ZEB CRUZ [place] [facility] EX OF EXCES SKIN,ABDOM 12/17/2011 EXCISION EXCESSIVE SKIN AND SUBCUTANEOUS TISSUE INCLUDING LIPECTOMY ABDOMEN ABDOMINOPLASTY performed by ZEB CRUZ at [place] [facility] [place] EXCISION EXCES SKIN,PANNICULECTOMY,INFRAUMB 12/17/2011 EXCISION EXCESSIVE SKIN AND SUBCUTANEOUS TISSUE INCLUDIING LIPECTOMY ABDOMEN INFRAUMBILICAL PANNICULECTOMY performed by ZEB CRUZ at [place] [facility] [place] FOOT/TOE SURGERY NEC 12/2009 left HIP ARTHROSCOPY W/ LABRAL REPAIR Right 02/17/16 [place] INSERT INTRAUTERINE DEVICE (IUD) 05/01 MASTOPEXY 12/17/2011 MASTOPEXY performed by ZEB CRUZ at [place] [facility] [place] PATIENT EDU, ACL REPAIR left REMOVE TONSILS & ADENOIDS, UNDER 12 SPINE SURGERY PROCEDURE NEC 05/14/15 fusion SUCTION REMOVE FAT TISSUE, TRUNK 12/17/2011 SUCTION ASSISTED LIPECTOMY TRUNK performed by ZEB CRUZ at [place] [facility] [place] Social History Socioeconomic History Marital status: Spouse name: Jarrett Number of children: 2 Years of education: Not on file Highest education level: Not on file Occupational History Occupation: homemaker Comment: unemployed Tobacco Use Smoking status: Never Smokeless tobacco: Never Tobacco comments: No passive smoke exposures Vaping Use Vaping status: Never Used Substance and Sexual Activity Alcohol use: No Drug use: No Sexual activity: Yes Partners: Male Comment: vasectomy Other Topics Concern Not on file Social History Narrative Lives with Jarrett her . 1 6 year old son, Jairo and a 3 year old daughter nawaf. 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 Social Needs Financial Resource Strain: Not on file Food Insecurity: Not on file Transportation Needs: Not on file Social Connections: Not on file Housing Stability: Not on file Family History Problem Relation Name Age of Onset Cancer Father lung cancer, radon exposre Mental Disorder Mother bipolar Neurological Disorder Mother RSD Allergies Daughter Allergic nasal symptoms, rashes Allergies Son Allergic eye symptoms Current Outpatient Medications Medication Sig Dispense Refill Cyclobenzaprine HCl 10 MG Oral Tablet (Flexeril) TAKE 1 TABLET BY MOUTH TWO TIMES DAILY NEEDED FOR MUSCLE SPASM Fluticasone Propionate 50 MCG/ACT Nasal Suspension Administer 1 Guild into nostril in the morning. Ibuprofen-Famotidine 800-26.6 MG Oral Tablet (Duexis) 1-2 times a day as needed 180 Tablet 3 Naltrexone HCl (Pain) 4.5 MG Oral Capsule Start: 10/26/23 13:44:00 EST, 1 tab, PO, Daily, Disp# 30 tab, Requires compounding pharmacy, given to patient Levothyroxine Sodium 100 MCG Oral Tablet (Levoxyl) Take 1 Tablet by mouth in the morning. traMADol HCl 50 MG Oral Tablet (Ultram) Take 1 Tablet by mouth in the morning and 1 Tablet before bedtime. Cyanocobalamin 1000 MCG/ML Injection Solution (Cyanocobalamin) Inject 1 mL into a large muscle every 30 days. hydroCHLOROthiazide 12.5 MG Oral Capsule Take 1 Capsule by mouth in the morning. Montelukast Sodium 10 MG Oral Tablet (Singulair) TAKE 1 TABLET BY MOUTH EVERY EVENING 90 Tablet 3 Colchicine 0.6 MG Oral Tablet Take 1 Tablet by mouth in the morning. Meloxicam 15 MG Oral Tablet (Mobic) Take 1 Tablet by mouth in the morning. Xeljanz XR 11 MG Oral Tablet Extended Release 24 Hour Take 1 Tablet by mouth Every Month. Eletriptan Hydrobromide 40 MG Oral Tablet (Relpax) 1 at onset of migraine may repeat in 2 hours max2 doses in 24 hours 10 Tablet 5 Propranolol HCl ER 120 MG Oral Capsule Extended Release 24 Hour Take one daily at bedtime (dose reduction) 30 Capsule 5 Emgality 120 MG/ML Subcutaneous Solution Auto-injector (Galcanezumab-gnlm) Inject 1 ml under the skin once monthly 1 mL 5 Fluticasone-Salmeterol 250-50 MCG/DOSE Inhalation Aerosol Powder Breath Activated (Advair Diskus) INHALE 1 PUFF BY MOUTH TWO TIMES DAILY (Patient not taking: Reported on 02/18/2025) 60 Each 5 ZyrTEC Allergy 10 MG Oral Capsule (Cetirizine HCl) Take 1 Capsule by mouth in the morning. (Patientnot taking: Reported on 02/18/2025) predniSONE 5 MG Oral Tablet (Deltasone) Take 1 pill daily for now. (Patient not taking: Reported on05/13/2023) 30 Tablet 1 Mupirocin 2 % External Ointment (Bactroban) (Patient not taking: Reported on 02/18/2025) oxyCODONE HCl 5 MG Oral Tablet (Oxy IR) TAKE 1 TABLET BY MOUTH EVERY 4 TO 6 HOURS NEEDED FOR MODERATE TO SEVERE PAIN (Patient not taking: Reported on 02/18/2025) Semaglutide(0.25 or 0.5MG/DOS) 2 MG/1.5ML Solution Pen-injector (StarGenic) Inject under the skin once a week. (Patient not taking: Reported on 02/18/2025) Cimzia (2 Syringe) 200 MG/ML Subcutaneous Prefilled Syringe Kit (Certolizumab Pegol) INJECT 1 SYRINGE UNDER THE SKIN EVERY 2 WEEKS (Patient not taking: Reported on 02/18/2025) 2 Each 2 No current facility-administered medications for this visit. Review of patient's allergies indicates: Allergen Reactions Celexa [Citalopram Hydrobromide] Hives Procaine Other reaction(s): Nausea/Vomiting Tramadol Other reaction(s): "crawling out of skin" Anesthetics, Amide ?reaction novacaine as child. Has had lidocaine patches in the past to de- sensitize herself. No current issues with lidocaine. Hydrocodone Neuro complications (Please comment) Hallucinations Indomethacin itching Lamictal [Lamotrigine] rash Results for orders placed or performed in visit on 11/15/24 CBC Result Value Ref Range WBC 7.05 4.00 - 10.80 K/uL RBC 3.98 3.85 - 5.15 M/uL HGB 13.0 12.0 - 15.3 g/dL HCT 39.9 36.0 - 45.2 % MCV 100.3 81.5 - 97.5 fL MCH 32.7 27.0 - 34.0 pg MCHC 32.6 32.0 - 36.0 g/dL RDW 13.4 11.5 - 15.5 % PLT 247 140 - 400 K/uL MPV 9.7 6.6 - 11.1 fL Results for orders placed or performed in visit on 04/03/24 BASIC METABOLIC PANEL Result Value Ref Range BUN 34 (H) 6 - 20 mg/dL CREATININE 0.8 0.5 - 1.0 mg/dL EGFR >90 >=60 mL/min SODIUM 139 135 - 146 mmol/L POTASSIUM 4.2 3.5 - 5.1 mmol/L CHLORIDE 102 98 - 107 mmol/L CO2 28 22 - 32 mmol/L ANION GAP 9 7 - 15 mmol/L GLUCOSE 96 70 - 120 mg/dL CALCIUM 9.2 8.4 - 10.2 mg/dL Results for orders placed or performed in visit on 10/04/22 LIPID PANEL WITHOUT DIRECT LDL Result Value Ref Range Triglycerides 144 <=174 mg/dL Cholesterol 220 (H) <200 mg/dL HDL Cholesterol 44 (L) >49 mg/dL Non-HDL Cholesterol 176 (H) <=159 mg/dL LDL Cholesterol 147 (H) <=129 mg/dL Results for orders placed or performed in visit on 11/12/14 LIPID PANEL WITH DIRECT LDL IF TG ABOVE 400 MG/DL Result Value Ref Range HOURS FASTING 12 hours Triglycerides 198 <200 mg/dL Cholesterol 269 (H) <200 mg/dL HDL Cholesterol 57 >39 mg/dL Cholesterol-HDL Ratio 4.7 LDL Cholesterol 172 (H) 0 - 129 mg/dL LDL Cholesterol (Direct Measure) NOT APPLICABLE 0 - 100 mg/dL Lab Results Component Value Date/Time HEMOGLOBIN A1C - [facility] 4.7 03/02/2012 03:33 PM HEMOGLOBIN A1C - [facility] 4.9 12/17/2010 12:56 PM Lab Results Component Value Date/Time TSH - [facility] 5.47 (H) 01/02/2024 09:07 AM TSH - [facility] 1.96 03/30/2016 10:55 AM TSH - [facility] 3.98 05/01/2015 09:40 AM TSH - [facility] 2.67 12/17/2010 12:56 PM KONRAD MEETA SCREEN Date Value Ref Range Status 03/30/2016 SEE IFA CONFIRMATORY TEST RESULT Final Antinuclear Antibody Pattern, IFA Date Value Ref Range Status 03/30/2016 NOT APPLICABLE PATTERN Final Antinuclear Antibody Titer, IFA Date Value Ref Range Status 03/30/2016 <40 <40 TITER Final Results for orders placed or performed in visit on 03/30/16 VITAMIN B12 Result Value Ref Range Vitamin B12 476 211 - 946 pg/mL No results found for: "[id number]" No results found for: "[id number]" No results found for: "[id number]" 25OH VITAMIN D TOTAL (ng/mL) Date Value 10/11/2016 18 (L) 03/30/2016 14 (L) 25-Hydroxy Vitamin D (ng/mL) Date Value 04/03/2024 39 Vitamin D Level Interpretation deficient: <20 ng/ml insufficient: 20-30 ng/ml normal: 31-100 ng/ml REVIEW OF SYSTEMS: As above PHYSICAL EXAM: BP 114/70 | Pulse 85 | Temp 36.1 °C (97 °F) | Wt 84.7 kg (186 lb 12.8 oz) | SpO2 97% | BMI 28.40 kg/m² | BSA 2.02 m² The patient is awake and alert speech and language are normal affect appropriate IMPRESSION: Chronic migraine continue Emgality which seems to be effective. She continues to do well she can reach out to me and we can see if we can lower the dose of her Inderal. She does note that is variably her blood pressure has been mildly elevated in primary care's office but not nor office we would need to monitor that. Return 6 months Savanah Saleem MD 02/18/2025 1:22 PM documented in this encounter Nursing Notes * Steffany Quiroz LPN - 02/18/2025 1:02 PM EDT Chief Complaint Patient presents with Return Neuro documented in this encounter Plan of Treatment Upcoming Encounters Date Type Department Care Team (Late st Contact Info) Description 08/22/2025 2:20 PM EDT Office Visit Neurology [facility] [place] [address] [facility] [place] [address] Savanah Saleem MD [address] [facility] [place] [address] Health Maintenance Due Date Last Done Comments HIV Screening 1991 HPV/Co-Test 2006 Depression Screening 08/05/2016 08/05/2015 Mammogram 2016 01/28/2011 Cervical Cancer Screening 11/26/2019 Pap Smear 11/26/2019 11/26/2016, 03/25, 03/17/2011 Cologuard 2021 Colonoscopy 2021 Colorectal Cancer Screening 2021 Fecal Occult Blood Test 2021 Sigmoidoscopy 2021 Pneumococcal Vaccine: Pediatrics (0 to 5 Years) and At-Risk Patients (6 to 18 Years and 19+ Years) (2 of 2 - PPSV23) 12/02/2021 10/07/2021, 05/20/2021 COVID-19 Vaccine ( season) 2024 11/10/2021, 06/10/2021, 12/17/2020, Additional history exists TSH 01/01/2025 01/02/2024, 06/0 04/2016, 05/01/2015, Additional history exists Diabetes Screening 04/03/2027 04/03/2024, 0 01/21/2023, 10/04/2022, Additional history exists Lipid Panel 10/04/2027 10/04/2022, 0310/2021, 11/12/2014, Additional history exists DTap/Tdap Vaccines (5 - Td or Tdap) 01/19/2031 01/19/2021, 01/19/2021, 05/01/2009, Additional history exists Hepatitis B Vaccine Completed 08/11/2021, 02/25/2021, 01/23/2021 Influenza Vaccine (FLU shot) Completed , 07/11/2021, 07/24/2020, Additional history exists HPV (Gardasil) Vaccine Aged Out No lo nger eligible based on patient's age to complete this topic MENINGOCOCCAL (MENACTRA/MENVEO) Aged Out No longer eligible based on patient's age to complete this topic Meningitis B Vaccine (Bexsero/Trumemba) Aged Out No longer eligible based on patient's age to complete this topic documented as of this encounter Medical Devices Implanted Type Area Foot And Ankle Surgeon Device Identifier Shelf Expiration Date Model / Serial / Lot Implant Breast Silvina+ [id number] - [id number] Implanted:Qty: 1 on 12/17/2011 [place] [facility] [place] Right: Breast MENTOR VESNA 06/16/2016 [id number] / [id number] / [id number] Description:smooth round mod erate plus Implant Breast Silvina+ [id number] - [id number] Implanted:Qty: 1 on 12/17/2011 at [facility] Left: Breast MENTOR VESNA 05/16/2016 [id number] / [id number] / [id number] documented as of this encounter Visit Diagnoses Diagnosis Intractable chronic migraine without aura and without status migrainosus- Primary Chronic migraine without aura, with intractable migraine, so stated, without mention of status migrainosus documented in this encounter Advance Directives * Full Code (Latest Code Status on File) Date Activated Date Inactivated Comments 12/17/2011 7:46 PM 12/19/2011 3:11 PM This order r eflects the patients wishes and were consensually agreed upon. Care Teams Obstetrics And Gynecology Professor Relationship Specialty Start Date End Date Madie Henderson MD 6 [facility] [address], [place] [address] PCP - General Family Medicine 11/07/20 documented as of this encounter
--- OUTSIDE RECORDS SUMMARY | 2025-02-21 07:06 | External Medical Summary | Continuity of Care Document ---
Author Name Unknown Organization [facility] [id number] [place] [address] [id number] Care Team Providers Care Wine Consultant Name Role Phone Jojo Quigley Primary Care Physician [phone] Encounter [id number] Date(s): 02/01/25 - 02/01/25 [facility] 0 [facility] [address] [place] [address] [phone] Encounter Diagnosis Body mass index [BMI] 28.0-28.9, adult(Discharge Diagnosis) - 02/01/25 Disease of gallbladder, unspecified(Discharge Diagnosis) - 02/01/25 Ankylosing spondylitis(Discharge Diagnosis) - 02/01/25 HLD (hyperlipidemia)(Discharge Diagnosis) - 02/01/25 Discharge Disposition: Home or Self Care Attending Physician: URIAH Quigley Kimberly A Encounter Type: Clinic Allergies, Adverse Reactions, Alerts Substance Criticality Severity Reaction Reaction Severity Status indomethacin hives itching Active DULoxetine 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 Disease of gallbladder, unspecified STATUS: Chronic condition exacerbated/progressive/side effects of treatment -Sonogram confirmed gallbladder sludge, polyps and gallstones -Has seen Dr. Florian and is scheduled for laparoscopic cholecystectomy at the beginning of February -Symptoms include pain with bending and eating -He is also going to do an EGD at the same time as surgery DATA: Labs reviewed. GOAL: Maintain stability. PLAN: Cont current monitoring. Care to remain under Dr. Florian Patient to remain off of GLP-1 treatment BLAND diet until surgery. 2. Ankylosing spondylitis STATUS: Chronic condition exacerbated/progressive/side effects of treatment -Has been most recently seen by ortho in [place] with recommendations to proceed with a spinal stimulator -Is following with pain management locally -Is scheduled for the practice injection after her surgery DATA: Labs reviewed. GOAL: Maintain stability. PLAN: Cont current monitoring. .Continue to follow with pain management Doubtful that she will need any type of medical optimization prior to the placement 3. HLD (hyperlipidemia) STATUS: Chronic condition, at goal -Elevated lipids on recent labs with LDL of 151, total of 240. -Has improved compared to past results -ASCVD risk factor is low at 1.2% DATA: Labs reviewed. GOAL: Maintain stability. PLAN: Cont current monitoring. Repeat labs yearly Eat anything you can pull out of the ground or tree. All fruits, veggies, nuts are excellent. [place] oil and fish are also good for you. Try to limit eggs, red meats and fatty foods to moderate amount. Be sure to increase dietary fiber. Time spent on pre-visit plannin Face to face time spent w/ patient: 20 Time spent documenting pertinent clinical information into the EMR: 7 Total time: 31 Immunizations Given and Recorded Vaccine Date Status Refusal Reason influenza virus vaccine, inactivated 1 07/13/24 Gi kelly influenza virus vaccine, inactivated 07/07/22 Give n influenza virus vaccine, inactivated 07/24/20 Oswaldo rded influenza virus vaccine, inactivated 07/05/18 Give n influenza virus vaccine, inactivated 07/20/17 Give n SARS-CoV-2 (COVID-19) mRNA BNT-162b2 vax 2 11/10/21 Recorded pneumococcal 13-valent vaccine 3 10/07/21 Recorded pneumococcal 13-valent vaccine 05/20/21 Given hepatitis A-hepatitis B vaccine 4 08/11/21 Recorde d hepatitis A-hepatitis B vaccine 5 02/25/21 Recorde d hepatitis A-hepatitis B vaccine 6 01/23/21 Recorde d SARS-CoV-2 (COVID-19) mRNA-1273 vaccine 7 06/10/21 Recorded SARS-CoV-2 (COVID-19) mRNA-1273 vaccine 12/17/20 R ecorded SARS-CoV-2 (COVID-19) mRNA-1273 vaccine 11/19/20 R ecorded tetanus/diphtheria/pertuss, acel (Tdap) 01/19/21 G iven tetanus/diphtheria/pertuss, acel (Tdap) 05/01/09 R ecorded influenza virus vaccine, H1N1 8 09/14/09 Recorded 1Result Comment: Bren Culver Lpn 2Result Comment: 2022-03-10: Historical information-source unspecified 3Result Comment: 2022-03-10: Historical information-source unspecified 4Result Comment: 2022-03-10: Historical information-source unspecified 5Result Comment: 2022-03-10: Historical information-source unspecified 6Result Comment: 2022-03-10: Historical information-source unspecified 7Result Comment: 2022-03-10: Historical information-source unspecified 8Result Comment: 2022-03-10: Historical information-source unspecified Medications cyanocobalamin 1000 mcg/mL injectable solution Start: 12/05/24 11:26:00 AM EST, See Instructions, Disp# 10 mL, Refills: 1, INJECT 1 MILLILITER INTRAMUSCULARLY (INTO THE MUSCLE) ONCE EACH MONTH, Pharmacy: [id number] Start Date: 12/05/24 Status: Ordered Quantity: 10.0 Unit: mL Repeat number: 2 cyclobenzaprine 10 mg oral tablet Start: 01/18/22 10:54:00 AM EDT, 1 tab, PO, bid, PRN: as needed for spasm Start Date: 01/18/22 Status: Ordered Repeat number: 1 dexAMETHasone 6 mg oral tablet Start: 12/05/24 10:52:00 AM EST, 1 tab, PO, bid Start Date: 12/05/24 Status: Ordered Repeat number: 1 Emgality Prefilled Pen 120 mg/mL subcutaneous solution Start: 12/05/24 10:51:00 AM EST Start Date: 12/05/24 Status: Ordered Repeat number: 1 hydroCHLOROthiazide 12.5 mg oral tablet Start: 04/23/24 3:50:00 PM EDT, 1 tab, PO, Daily Start Date: 04/23/24 Status: Ordered Repeat number: 1 levothyroxine 100 mcg (0.1 mg) oral tablet Start: 01/21/25 4:32:00 PM EDT, 1 tab, PO, Daily, Disp# 90 tab, Refills: 3, Pharmacy: [id number] Start Date: 01/21/25 Stop Date: 01/16/26 Status: Ordered Quantity: 90.0 Unit: tab Repeat number: 4 Low Dose Naltrexone 4.5 mg CMPD Start: 04/05/24 1:06:00 AM EDT, 1 tab, PO, Daily, Disp# 30 tab, Refills: 5, Requires compounding pharmacy Start Date: 04/05/24 Status: Ordered Quantity: 30.0 Unit: tab Repeat number: 6 meloxicam 15 mg oral tablet Start: 12/05/24 10:52:00 AM EST, 1 tab, PO, Daily Start Date: 12/05/24 Status: Ordered Repeat number: 1 naproxen 500 mg oral tablet Start: 12/05/24 10:51:00 AM EST, 1 tab, PO, bid, PRN: as needed for pain Start Date: 12/05/24 Status: Ordered Repeat number: 1 PriLOSEC Start: 10/26/23 1:00:00 PM EST Start Date: 10/26/23 Status: Ordered Repeat number: 1 propranolol 120 mg oral capsule, extended release Start: 12/05/24 10:51:00 AM EST, 1 cap, PO, Daily Start Date: 12/05/24 Status: Ordered Repeat number: 1 traMADol 50 mg oral tablet Start: 04/23/24 3:50:00 PM EDT Start Date: 04/23/24 Status: Ordered Repeat number: 1 Xeljanz XR 11 mg oral tablet, extended release Start: 12/05/24 10:51:00 AM EST Start Date: 12/05/24 Status: Ordered Repeat number: 1 Mental Status 02/01/25 Barriers to Learning one year None evide nt Mandatory Health Literacy Documentation Yes Health Literacy Communication Barriers N ever Primary Language Honduran Problem List Condition Confirmation Course Effective Dates Status Health St atus Informant Ankylosing spondylitis Confirmed Active Fibromyalgia Confirmed Active S/P lumbar fusion Confirmed Active History of basal cell carcinoma of skin Confirmed Active Migraine headache Confirmed Active Psoriasis of scalp Confirmed Active Thyroid nodule Confirmed Active Diagnosis Diagnosis Type Effective Dates Health Status Clinical Service Informant Ankylosing spondylitis Discharge Diagnosis 02/01/25 Non-Specified Body mass index [BMI] 28.0-28.9, adult Discharge Diagnosis 02/01/25 Non-Specified Disease of gallbladder, unspecified Discharge Diagnosis 02/01/25 Non-Specified HLD (hyperlipidemia) Discharge Diagnosis 02/01/25 Non-Specified Procedures Procedure Date Related Diagnosis Body Site Status Hysteroscopy 1 04/18/23 Completed Injection 2 10/05/22 Completed Left/Right Foot X-ray 3 02/20/21 C ompleted Plain X-ray of left and right hand 4 02/20/21 Completed Mammogram 5 09/25/20 Completed Kidney stone analysis 07/2020 Com pleted Operative report 6 07/23/20 Comple lianna [facility]wood 7 03/20/20 Completed Upper GI endoscopy 8 03/20/20 Comp leted Upper GI endoscopy 9 03/10/20 Comp leted Chest X-ray 10 02/26/20 Completed Mammogram 11, 12 09/18/19 Complete d Colonoscopy 13 07/05/19 Completed ACL (anterior cruciate ligament) tear Completed Spinal cord 14 Completed Surgery 15 Completed Surgery 16 Completed Surgery 17 Completed 1Hysteroscopy, dilation and curettage, endometrail ablation 2US guided [facility]oracic [facility]: 1. No acute abnormality identified within the right or left foot 2. Small well-corticated ossific density dorsal to the talonavicular joint of the right foot. This may be due to an old avulsion injury 3. Tiny left plantar heel spur 4[facility] Imrpression: 1. No significant abnormality within the right or left hand by conventional radiographic technique 5No mammographic evidence of malignancy 6Proximal right urteral stone. 7The patient has significant acid reflux for a t least 24 hours during the trial testing period. However, there was poor correlation between reflux episodes and her cough and also zero correlation between heartburn and reflux episodes. 8the Z-line was regular and was found 39cm from the incisors normal mucosa was found in the entire esophagus. the BLACKWOOD capsule with delievery system was introduced throught the mouth and advanced into the esophagus, such that the BLACKWOOD pH capsule was positioned 33cm fron the incisors, which was 6cm proximal to the GE juction. The BLACKWOOD pH capsule was then de ployed and attached to the esophageal mucosa. The delivery system was then withdrawn, Endoscopy wasutlized for probe placement and diagnostic evaluation the entire examined stomach was normal the examined duodenum was normal 9impression: the procedure was aborted due to the patient's respiratory instability ( respiratory distess). Z-line regular, 30cm form the incisors normal esophagus an unattached BLACKWOOD capsul was found in the esophagus, Removal was successful. normal stomach mornal examined duodenum 10impression: no acute cardiopulmonary findings 11Prior presurgical mammogram dated 01/28/11 from [facility] became available for review. There has beenno significant interval change in the glandular tissue pattern since the prior mammogram. Bilateralsubpectoral silicone implants are new. No suspicious masses, asymmetries, areas of architectural distortion or new suspicious calcification identified. Recommend routine screening mammography in one year. 12IMPRESSION: ACR BI-RADS CATEGORY1: NEGATIVE; There is no mammographic evidence of malignancy. Prior outside mammograms are currently being requested and if obtained they will be reviewed, compared to the current to assess for any more subtle changes and a addendum will be made to this report. Otherwise a 1 year screening mammogram is recommended. 13no significant abnormalities 14surgery 15foot 16hip 17spinal Vital Signs Most recent to oldest [Reference Range]: 1 Height 171.9 cm (02/01/25 3:09 PM) Patient Weight 85.0 kg (02/01/25 3:09 PM) Body Mass Index 28.77 kg/m2 (02/01/25 3:09 PM) Temperature [36.5-37.9 DegC] 36.6 DegC (02/01/25 3:09 PM) Heart Rate 97 bpm (02/01/25 3:09 PM) Respiratory Rate 18 br/min (02/01/25 3:09 PM) Blood Pressure 108/82mmHg (02/01/25 3:09 PM) Cuff Pulse Pressure 26 mmHg (02/01/25 3:09 PM) Social History Social History Type Response Smoking Status Never smoked cigaret huseyin Sex Female Sex Representation Female (finding) FCM Outpt Note * URIAH Quigley, Jojo Vuong: PERFORM Event Display: FCM Outpt Note Authored Date: [id number] Assessment/Plan 1. Disease of gallbladder, unspecified STATUS: Chronic condition exacerbated/progressive/side effects of treatment -Sonogram confirmed gallbladder sludge, polyps and gallstones -Has seen Dr. Florian and is scheduled for laparoscopic cholecystectomy at the beginning of February -Symptoms include pain with bending and eating -He is also going to do an EGD at the same time as surgery DATA: Labs reviewed. GOAL: Maintain stability. PLAN: Cont current monitoring. Care to remain under Dr. Florian Patient to remain off of GLP-1 treatment BLAND diet until surgery. 2. Ankylosing spondylitis STATUS: Chronic condition exacerbated/progressive/side effects of treatment -Has been most recently seen by ortho in [place] with recommendations to proceed with a spinal stimulator -Is following with pain management locally -Is scheduled for the practice injection after her surgery DATA: Labs reviewed. GOAL: Maintain stability. PLAN: Cont current monitoring. .Continue to follow with pain management Doubtful that she will need any type of medical optimization prior to the placement 3. HLD (hyperlipidemia) STATUS: Chronic condition, at goal -Elevated lipids on recent labs with LDL of 151, total of 240. -Has improved compared to past results -ASCVD risk factor is low at 1.2% DATA: Labs reviewed. GOAL: Maintain stability. PLAN: Cont current monitoring. Repeat labs yearly Eat anything you can pull out of the ground or tree. All fruits, veggies, nuts are excellent. Oliveoil and fish are also good for you. Try to limit eggs, red meats and fatty foods to moderate amount. Be sure to increase dietary fiber. Time spent on pre-visit plannin Face to face time spent w/ patient: 20 Time spent documenting pertinent clinical information into the EMR: 7 Total time: 31 Chief Complaint F/U from gallbaldder appointment, Insurance denied endoscopy. Getting gallbladder removed february 21. History of Present Illness Patient is a 49yo female presenting today for 6 month followup. Gallbladder disease: -Sonogram confirmed gallbladder sludge, polyps and gallstones -Has seen Dr. Florian and is scheduled for laparoscopic cholecystectomy at the beginning of February -Symptoms include pain with bending and eating -He is also going to do an EGD at the same time as surgery Ankylosing spondylitis: -Has been most recently seen by ortho in [place] with recommendations to proceed with a spinal stimulator -Is following with pain management locally -Is scheduled for the practice injection after her surgery HLD: -Elevated lipids on recent labs with LDL of 151, total of 240. -Has improved compared to past results -ASCVD risk factor is low at 1.2% Review of Systems ROS per HPI Physical Exam Vitals & Measurements T: 36.6 °C HR: 97 (Monitored) RR: 18 BP: 108/82 SpO2: 98% HT: 171.9 cm WT: 85.000 kg (Dosing) WT: 85.0 kg BMI: 28.77 PHQ2 Data (Data Documented on:02/01/2025 15:07) Emotional health assessment NEGATIVE GENERAL: _No acute distress. Well developed and well nourished. AAO x 3. Vital signs reviewed as above. HENT: Nontraumatic, no gross deformity, hearing and vision grossly in-tact, PERRL RESPIRATORY: _Clear to auscultation bilaterally. No wheezing, rales, or rhonchi. CARDIOVASCULAR: _Regular rate and rhythm. No murmurs. ABDOMEN: _Soft, non-tender and non-distended. Normal bowel sounds. EXTREMITIES: _No gross deformities. SKIN: _Warm, dry. NEUROLOGIC: _Alert and oriented. Normal speech. No gross focal neurological deficits. PSYCHIATRIC: _Cooperative. Appropriate mood and affect. Problem List/Past Medical History Ongoing Ankylosing spondylitis Fibromyalgia History of basal cell carcinoma of skin Migraine headache Psoriasis of scalp S/P lumbar fusion Thyroid nodule Resolved Fatigue Strain of hip Procedure/Surgical History •Hysteroscopy| Service Date: 04/18/2023•Injection| Service Date: 10/05/2022•Plain X-ray of left and right hand| Service Date: 02/20/2021•Left/Right Foot X-ray| Service Date: 02/20/2021•Mammogram| Service Date: 09/25/2020•Kidney stone analysis| Service Date: 07/2020•Operative report| Service Date: 07/23/2020•[facility]wood| Service Date: 03/20/2020•Upper GI endoscopy| Service Date: 03/20/2020•Upper GI endoscopy| Service Date: 03/10/2020•Chest X-ray| Service Date: 02/26/2020•Mammogram| Service Date: 09/18/2019•Colonoscopy| Service Date: 07/05/2019•Surgery•ACL (anterior cruciate ligament) tear•Surgery•Surgery•Spinal cord Medications cyanocobalamin(cyanocobalamin 1000 mcg/mL injectable solution), See Instructions, 1 refills cyclobenzaprine(cyclobenzaprine 10 mg oral tablet), 10 mg= 1 tab, PO, bid, PRN dexAMETHasone(dexAMETHasone 6 mg oral tablet), 6 mg= 1 tab, PO, bid galcanezumab(Emgality Prefilled Pen 120 mg/mL subcutaneous solution) hydroCHLOROthiazide(hydroCHLOROthiazide 12.5 mg oral tablet), 12.5 mg= 1 tab, PO, Daily levothyroxine(levothyroxine 100 mcg (0.1 mg) oral tablet), 100 mcg= 1 tab, PO, Daily, 3 refills meloxicam(meloxicam 15 mg oral tablet), 15 mg= 1 tab, PO, Daily naltrexone(Low Dose Naltrexone 4.5 mg CMPD), 1 tab, PO, Daily, 5 refills naproxen(naproxen 500 mg oral tablet), 500 mg= 1 tab, PO, bid, PRN omeprazole(PriLOSEC) propranolol(propranolol 120 mg oral capsule, extended release), 120 mg= 1 cap, PO, Daily tofacitinib(Xeljanz XR 11 mg oral tablet, extended release) traMADol(traMADol 50 mg oral tablet) Allergies CeleXA DULoxetine Neuropathy caused by chemical substance HYDROcodone indomethacin hives, itching lamoTRIgine rash Social History Smoking Status Never smoked cigarettes Alcohol - Denies Alcohol Use Exercise - Regular exercise Tobacco - Denies Tobacco Use Use:Never smoker Intake (IView) Smoking History Cigarette smoker: Never smoked cigarettes Tobacco Product Use: Never used other tobacco products Family History Alive and well: Mother. Bipolar disorder: Mother. Health Status Family Member(s) Family Member(s) Relationship: Father, Age: 58 Years, Cause: lung cancer Immunizations Vaccine Date Status influenza virus vaccine, inactivated 07/13/2024 Given Comments : Bren Culver Lpn influenza virus vaccine, inactivated 07/07/2022 Given SARS-CoV-2 (COVID-19) mRNA BNT-162b2 vax 11/10/2021 Recorded Comments : 2022-03-10: Historical information-source unspecified pneumococcal 13-valent vaccine 10/07/2021 Recorded Comments : 2022-03-10: Historical information-source unspecified hepatitis A-hepatitis B vaccine 08/11/2021 Recorded Comments : 2022-03-10: Historical information-source unspecified SARS-CoV-2 (COVID-19) mRNA-1273 vaccine 06/10/2021 Recorded Comments : 2022-03-10: Historical information-source unspecified pneumococcal 13-valent vaccine 05/20/2021 Given hepatitis A-hepatitis B vaccine 02/25/2021 Recorded Comments : 2022-03-10: Historical information-source unspecified hepatitis A-hepatitis B vaccine 01/23/2021 Recorded Comments : 2022-03-10: Historical information-source unspecified tetanus/diphtheria/pertuss, acel (Tdap) 01/19/2021 Given SARS-CoV-2 (COVID-19) mRNA-1273 vaccine 12/17/2020 Recorded SARS-CoV-2 (COVID-19) mRNA-1273 vaccine 11/19/2020 Recorded influenza virus vaccine, inactivated 07/24/2020 Recorded influenza virus vaccine, inactivated 07/05/2018 Given influenza virus vaccine, inactivated 07/20/2017 Given influenza virus vaccine, H1N1 09/14/2009 Recorded Comments : 2022-03-10: Historical information-source unspecified tetanus/diphtheria/pertuss, acel (Tdap) 05/01/2009 Recorded Recommendations Health Maintenance Pending (in the next year) Due Adult Social Determinants of Health Screening due 02/01/25 Unknown Frequency Hepatitis C Screening due 02/01/25 One-time only Seasonal COVID 19 Vaccine due 02/01/25 Unknown Frequency Shingles Vaccine due 02/01/25 One-time only Due In Future Adult Influenza Vaccine not due until 04/23/25 and every 1 year Cervical Cancer Screening not due until 08/10/25 and every 1096 day Satisfied (in the past 1 year) Satisfied Adult Influenza Vaccine on 07/13/24. Satisfied by TJ Osman Angela Body Mass Index on 02/01/25. Satisfied by TJ Arce [place] Breast Cancer Screening on 10/03/24. Satisfied by GISELLE Plummer Lynnae Lipid Screening on 01/30/25. Satisfied by [employer], [employer] Electronic Signature on File Electronically Reviewed/Signed by: Jojo Quigley PA-C Author Signature Dt/Tm:02/01/2025 03:56 PM Department of Family Medicine [facility] Patient Care team information Care Team Personnel Name: URIAH Quigley, Jojo Vuong Position: Physician Asst Exmpt - Family Med Member Role: Primary Care Provider Address: [address] [place] [id number] [place] Telecom: [phone] Care Team Related Persons Name: ALAINA AGUILAR Insurance Providers Guarantor name: KANDI AGUILAR Health Plan Information #: 1 Payer: [employer] Member Number: [id number] Policy Number: NA Group Number: [id number] Health Plan Information #: 2 Payer: [employer] Member Number: [id number] Policy Number: NA Group Number: [id number]"
--- OUTSIDE RECORDS SUMMARY | 2025-02-21 07:06 | External Medical Summary | Continuity of Care Document ---
Author Name Unknown Organization [facility] [address] Address [address] [place], [place] [id number] Care Team Providers Care Case Assembler Name Role Phone Jojo Quigley Primary Care Physician [phone] [id number] Date(s): 01/30/25 - 01/30/25 [facility] [address] [facility] [address] [facility], [address] [place], [place] [phone] Encounter Diagnosis Unspecified injury of left wrist, hand and finger(s), initial encounter(Final) - Unspecified abdominal pain(Final) - Calculus of gallbladder without cholecystitis without obstruction(Final) - Hyperlipidemia, unspecified(Final) - Hypothyroidism, unspecified(Final) - Discharge Disposition: Home or Self Care Attending Physician: MD Goldsmith Christopher Referring Physician: MD Goldsmith Christopher Encounter Type: Clinic Allergies, Adverse Reactions, Alerts Substance Criticality Severity Reaction Reaction Severity Status indomethacin hives itching Active DULoxetine 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 CeleXA Active lamoTRIgine rash Active HYDROcodone Active Immunizations Given and Recorded Vaccine Date Status [...] (INTO THE MUSCLE) ONCE EACH MONTH, Pharmacy: [id number] Start Date: 12/05/24 Status: Ordered [...] Daily, Disp# 90 tab, Refills: 3, Pharmacy: [id number] Start Date: 01/21/25 Stop Date: [...] Date: 12/05/24 Status: Ordered Repeat number: 1 Problem List Condition Confirmation Course Effective Dates Status Health St atus Informant Ankylosing spondylitis Confirmed Active Fibromyalgia Confirmed Active S/P lumbar fusion Confirmed Active History of basal cell carcinoma of skin Confirmed Active Migraine headache Confirmed Active Psoriasis of scalp Confirmed Active Thyroid nodule Confirmed Active Procedures Procedure Date Related Diagnosis Body Site [...] 2US guided injection of left scapulothoracic bursa 3[facility] Impression: 1. No acute abnormality identified within the right or left foot 2. Small well-corticated ossific density dorsal to the talonavicular joint of the right foot. This may be due to an old avulsion injury 3. Tiny left plantar heel spur 4[facility] Imrpression: 1. No significant abnormality within the [...] juction. The BLACKWOOD pH capsule was then deployed and attached to the esophageal mucosa. The [...] findings 11Prior presurgical mammogram dated 01/28/11 from [facility] became available for review. There has beenno [...] 13no significant abnormalities 14surgery 15foot 16hip 17spinal Results Laboratory List Name Date Lipid Profile (LIPOPROTEINS) 01/30/25 T4, Free (T4, FREE) 01/30/25 Thyroid Stimulating Hormone (TSH) 01/30/25 Most recent to oldest [Reference Range]: 1 Non-HDL 193 mg/dL 1 (01/30/25 10:35 AM) Chol/HDL 5 (01/30/25 10:35 AM) Chol [125-200 mg/dL] 240 mg/dL *HI* (01/30/25 10:35 AM) HDL [>35 mg/dL] 47 mg/dL (01/30/25 10:35 AM) LDL Chol, Calculated [50-130 mg/dL] 151 mg/dL *HI* (01/30/25 10:35 AM) Free T4 [0.70-1.48 ng/dL] 1.15 ng/dL 2 (01/30/25 10:35 AM) TG [<200 mg/dL] 208 mg/dL *HI* (01/30/25 10:35 AM) TSH [0.47-4.68 uIU/mL] 1.24 uIU/mL 3 (01/30/25 10:35 AM) 1Result Comment: Testing Performed By: Dept of Pathology [facility] [address], [address] [place] [address] 2Result Comment: Testing Performed By: Dept of Pathology [facility] [address], [address] [place] [id number] 3Result Comment: Testing Performed By: Dept of Pathology [facility] [address], [address] [place] [id number] Social History Social History Type Response Smoking Status Never smoked cigaret huseyin Sex Female Sex Representation Female (finding) Patient Care team information Care Team Personnel Name: URIAH Quigley, Jojo Vuong Position: Physician Asst [facility] - Family Med Member Role: Primary Care Provider Address: [address] [place] [address] [place] Telecom: [phone] Care Team Related Persons Name: ALAINA AGUILAR Insurance Providers Guarantor name: KANDI AGUILAR Health Plan Information #: 1 Payer: [employer] Member Number: [id number] Policy Number: NA Group Number: [id number] Health Plan Information #: 2 Payer: [employer] Member Number: [id number] Policy Number: NA Group Number: [id number]
[2025-02-21] MEDS: LR 15ML/HR IV SCH (07:15)
--- NOTE | 2025-02-21 07:54 | History & Physical Bridge Note ---
Date of Service February 21, 2025 History & Physical Bridge Note I have examined the patient, reviewed the History & Physical and in the interval since the performance of the History & Physical I have noted the following changes of clinical significance: no changes noted
[2025-02-21] MEDS ORDERED: ONDANSETRON INJ 2 MG/ML 2 ML VIAL ONE (07:58)
[2025-02-21] MEDS ORDERED: LIDOCAINE 2% 2 ML VIAL/AMP(20MG/ML) INFIL ONE (07:58)
[2025-02-21] MEDS ORDERED: fentaNYL citrate PF 100 MCG/2 ML VIAL ONE (07:58)
[2025-02-21] MEDS ORDERED: MIDAZOLAM HCL 1 MG/ML 2ML VIAL ONE (07:58)
[2025-02-21] MEDS ORDERED: PROPOFOL IV EMULSION 10 MG/ML 20 ML VIAL IV ONE (07:58)
[2025-02-21] MEDS ORDERED: DEXAMETHASONE SOD INJ 4 MG/ML VIAL ONE (07:58)
[2025-02-21] MEDS ORDERED: ROCURONIUM BROMIDE 10 MG/ML 5 ML VIAL IV ONE (07:59)
[2025-02-21] MEDS ORDERED: PROMETHAZINE HCL 6.25 MG in SODIUM CHLORIDE 0.9% 50 ML IV PRN (07:59)
[2025-02-21] MEDS ORDERED: ATROPINE SULFATE 0.1 MG/ML 10ML SYR IV PRN (07:59)
[2025-02-21] MEDS ORDERED: ePHEDrine sulfate 50 MG/ML AMP IV PRN (07:59)
[2025-02-21] MEDS ORDERED: LARYING-O-JET KIT (LTA) ONE (07:59)
[2025-02-21] MEDS ORDERED: SCOPOLAMINE 1 MG/72 HR TDSY PATCH TD ONE (08:05)
[2025-02-21] MEDS: ceFAZolin 2000MG 2,000 MG/15 ML SYR IV SCH (08:09)
[2025-02-21] MEDS ORDERED: MoRPHine SULFATE 4 MG/ML 1 ML CARP\\VIAL IV PRN (08:12)
[2025-02-21] MEDS ORDERED: oxyCODONE HCL IR 5 MG TAB (IMMEDIATE RELEASE) PO PRN (08:12)
[2025-02-21] MEDS ORDERED: ONDANSETRON INJ 2 MG/ML 2 ML VIAL IV PRN (08:12)
[2025-02-21] MEDS ORDERED: MoRPHine SULFATE 2 MG/ML CARP IV PRN (08:12)
[2025-02-21] MEDS ORDERED: SODIUM CHLORIDE 0.9% 1,000 ML IV SCH (08:15)
[2025-02-21] MEDS ORDERED: diphenhydrAMINE 50 MG/ML VIAL ONE ×2 (08:18→08:40)
[2025-02-21] MEDS ORDERED: PHENYLEPHRINE 100MCG/ML 5ML SYR ONE ×2 (08:40)
[2025-02-21] MEDS ORDERED: SUGAMMADEX SODIUM 200 MG/2 ML VIAL IV ONE (08:44)
[2025-02-21] MEDS ORDERED: KETOROLAC 30 MG/ML VIAL ONE (08:44)
[2025-02-21] MEDS ORDERED: ePHEDrine sulfate 50 MG/5 ML SYR ONE (09:01)
[2025-02-21] MEDS: BUPIVACAINE/EPINEPHRINE 0.5% MPF 1:200,000 30 ML VIAL ONE (09:13)
--- NOTE | 2025-02-21 09:37 | XRay Report ---
XR chest 1V portable CLINICAL HISTORY: RULE OUT PNUEMO COMPARISON STUDY: 02/26/2020 FINDINGS: There is a right-sided pneumothorax approximating 50%. Endotracheal tube tip 3 cm above the kwabena. There is no focal left lung infiltrate. There is no pleu ral effusion. The heart is not enlarged. IMPRESSION: Right pneumothorax approximating 50%. A stat reading was supplied. ACT 112: Negative or not required by law. Electronically signed by: Guera Guillen M.D. 02/21/2025 9:34 AM
[2025-02-21] MEDS: ONDANSETRON INJ 2 MG/ML 2 ML VIAL IV PRN (09:50)
[2025-02-21] MEDS: fentaNYL citrate PF 100 MCG/2 ML VIAL IV PRN (09:54)
--- NOTE | 2025-02-21 09:59 | Post Operative Brief Note ---
PG Immediate Post Op with CF Date of Surgery February 21, 2025 Pre & Post Diagnosis Operation Date: 02/21/25 08:15 Pre-Op Diagnosis: Gallbladder Calculus with Cholecystitis Upper Abdominal pain, Nausea Post-Op Diagnosis: Gallbladder Calculus; suspected endometriosis; distal esophagitis; iatrogenic diaphragmatic injury Upper Abdominal pain, Nausea I identified the patient and participated in the time-out.: Yes Procedure Operation Date: 02/21/25 08:15 Actual Procedures p Laparoscopic Cholecystectomy, repair of diaphragmatic injury, biopsy of distal esophagus, ablation of endometriosis, peritoneal biopsy(Not Applicable) - Win Florian DO s Intraoperative Esophagogastroduodenoscopy(Not Applicable) - Win Florian DO Surgeon Win Florian DO Senior Engineering Specialist ankush monroe Estimated Blood Loss 15 Findings Consistent with Post-Op Diagnosis Specimens Specimen Description: A.) gallbladder and contents B.) peritoneal biopsy EGD: A distal esophagus bx 0930 Complications iatrogenic injury to diaphragm while performing biopsy of suspected endometriosis with subsequent pneumothorax
--- NOTE | 2025-02-21 10:30 | Operative Report ---
PG Post Operative Report Pre & Post Diagnosis Operation Date: 02/21/25 08:15 Pre-Op Diagnosis: Gallbladder Calculus with Cholecystitis Upper Abdominal pain, Nausea Post-Op Diagnosis: Gallbladder Calculus; suspected endometriosis; iatrogenic diaphragmatic injury with pneumothorax; distal esophagitis Upper Abdominal pain, Nausea I identified the patient and participated in the time-out.: Yes Procedure Operation Date: 02/21/25 08:15 Actual Procedures p Laparoscopic Cholecystectomy, repair of diaphragmatic injury, biopsy of distal esophagus, ablation of endometriosis, peritoneal biopsy(Not Applicable) - Win Florian DO s Intraoperative Esophagogastroduodenoscopy(Not Applicable) - Win Florian DO Surgeon Win Florian DO Cane Splicer ankush monroe Estimated Blood Loss 15 Findings Consistent with Post-Op Diagnosis Specimens 1. gallbladder 2. peritoneal bx 3. distal esophageal bx Description of Procedure After informed consent was obtained the patient was taken the operating room and placed in supine position. After successful intubation the abdomen was sterilely prepped and draped in usual fashion. I began with a supraumbilical incision with an 11 blade scalpel. This was carried down through the soft tissue using cautery. Anterior fascia was opened using cautery and two #0 Vicryl stay sutures were placed. Peritoneum was elevated with hemostats and incised under direct vision using a Metzenbaum scissor. A finger sweep was performed. A 12 mm Cerna trocar was placed and the abdomen was insufflated to 18 mmHg. Laparoscope was inserted and the abdomen examined 360 degrees. A subxiphoid 5 mm port which would later be converted to a 12 mm port was placed followed by 2 right upper quadrant 5 mm ports. I began by placing the patient in a reverse Trendelenburg position and slightly airplane to the left. We initially noted there was some abnormal peritoneal implants as well as on the surface of the liver which appeared to be consistent with endometriosis. There was also a small amount of these in the pelvis near the left pelvic sidewall and near the urinary bladder. I began by taking out the gallbladder. A [place] dissector was used to skeletonize the cystic duct. It was clipped twice proximally once distally and transected using laparoscopic scissor. In similar fashion the cystic artery was skeletonized clipped and divided followed by the second posterior branch of the artery. The gallbladder was then removed from the gallbladder fossa using cautery. It was placed into an Endo Catch bag. Any small bleeding points on the liver were controlled using cautery. At this point I decided to biopsy one of the peritoneal abnormalities. We did this with traction scissors and a small amount of cautery. The specimen was sent to pathology. During this process it appeared as though I had created a small hole in the diaphragm itself. The patient remained stable throughout the remainder of the procedure. We did involve anesthesia with our discussions. She did have a slight increase in her peak pressures and we therefore desufflated the abdomen. This is when we converted the subxiphoid trocar to a 12 mm trocar and obtained a Endo Stitch device with 0 Surgidac sutures. Next we re-insufflated the abdomen. I used the Endo Stitch to primarily close the diaphragmatic defect in simple erupted fashion. After I did this I then used cautery to ablate the remainder of the abnormalities on the undersurface of the diaphragm as well as liver surface. We irrigated the right upper quadrant. There was adequate hemostasis. I did not feel comfortable attempting to ablate the abnormalities in the pelvis. The majority of the disease was in the right upper quadrant. 1 final look around the abdomen showed no other gross abnormalities. There was adequate hemostasis. I removed the gallbladder and all of the trocars and desufflated the abdomen. The wounds were all irrigated. The fascia of the camera port was closed using 0 Vicryl in a [id number] fashion. We closed all the incisions using 4-0 Monocryl. Marcaine with epinephrine were injected around them for postoperative analgesia and skin glue used as a dressing. At this point we obtained an intraoperative chest x-ray. This did confirm the pneumothorax. Again discussions with anesthesia the fact that we were using CO2 and the patient was completely stable in regards to heart rate respiratory status blood pressure peak pressures and oxygenation levels we decided to not place a chest tube at this point in time. Next I performed the intraoperative EGD. A gastroscope was lubricated and inserted in the oropharynx and the proximal esophagus without difficulty. Keep the lumen reviewed all times the scope was passed down in the stomach through the pylorus into the 1st, 2nd and 3rd portions of the duodenum. Scope withdrawn back in the distal stomach and retroflexed upon itself to evaluate the proximal stomach. The stomach itself looked normal other than some small irritations from the OG tube presumably. There was some erythematous tabs in the distal esophagus and a cold biopsy was taken and sent to pathology. The stomach was decompressed and the scope withdrawn. The remainder the esophagus was normal. The patient was awakened extubated and transferred to the recovery room in stable condition. She will be admitted for monitoring overnight. My nurse practitioner was present for the entire case was instrumental in helping to access the abdomen, retracting the gallbladder, assisting with the biopsy wound closure and dressing placement. I attest to the content of the Intraoperative Record and any orders documented therein. Any exceptions are noted below.
--- NOTE | 2025-02-21 10:47 | Anesthesiology Progress Note ---
Date of Service February 21, 2025 Anesthesia Post Procedure Vital Signs Vital Signs: Temp Pulse Pulse Resp BP Pulse Ox O2 Del Method 02/21/25 10:30 36.5 C 80 18 112/80 96 Room Air 02/21/25 10:20 73 16 105/73 96 Room Air 02/21/25 10:10 67 12 121/86 100 Oxymask 02/21/25 10:00 64 13 126/82 100 Oxymask 02/21/25 09:50 75 17 115/89 100 Oxymask 02/21/25 09:40 36.2 C L 74 12 100/86 100 Oxymask 02/21/25 06:51 36.8 C 70 16 103/66 99 Room Air O2 Flow Rate 02/21/25 10:30 02/21/25 10:20 02/21/25 10:10 7 02/21/25 10:00 15 02/21/25 09:50 15 02/21/25 09:40 15 02/21/25 06:51 Pain Intensity Abdomen: Pain Intensity: 7 Transfer of Care Handoff Completed per policy Notes Mental Status: alert / awake / arousable Patient Amnestic to Procedure: Yes Nausea / Vomiting: adequately controlled Pain: adequately controlled Airway Patency, RR, SpO2: stable & adequate BP & HR: stable & adequate Hydration State: stable & adequate Anesthetic Complications: no major complications apparent Notes: small perforation made in diaphragm during procedure resulted in a ~50% PNX on the right side. This was diagnosed and managed intraoperatively and the defect was repaired by the surgeon. As there was no source for further gas entering the chest cavity and the patient was stable from a cardiopulmonary standpoint, the decision was made to observe her rather than place a chest tube. By recovery she had weaned down to nasal cannula and denied shortness of breath or chest pain. She is adequate and stable for disposition to the floor. Equipment for placement of a chest tube remains at bedside.
[2025-02-21] MEDS: oxyCODONE HCL IR 5 MG TAB (IMMEDIATE RELEASE) PO PRN (11:11)
[2025-02-21] MEDS: CYCLOBENZAPRINE HCL 10 MG TAB PO PRN (14:03)
[2025-02-21] MEDS: ACETAMINOPHEN 1,000 MG/100 ML VIAL IV PRN (14:03)
[2025-02-21] MEDS: [UNRECOGNIZED DRUG - REMARK] PO ONE (15:15)
--- NOTE | 2025-02-21 15:38 | XRay Report ---
XR chest 1V portable CLINICAL HISTORY: Pneumothorax. COMPARISON STUDY: Chest radiograph performed earlier today. FINDINGS: The right pneumothorax has significantly decreased in size. A small residual pneumothorax i s noted with superior pleural separation of 6 mm. Left basilar opacity favors atelectasis. There is n o evidence for pulmonary edema. Cardiomediastinal silhouette is stable. IMPRESSION: Small right pneumothorax, significantly decreased in size since prior exam. ACT 112: Negative or not required by law. Electronically signed by: Meng Mccloud M.D. 02/21/2025 3:36 PM
[2025-02-21] MEDS: POLYETHYLENE (MIRALAX) 17 GM PACK PO PRN (17:01)
[2025-02-21] MEDS: traMADol HCL 50 MG TABLET PO STA (20:31)
[2025-02-21] MEDS: MAGNESIUM OXIDE 400 MG TAB PO SCH (20:32)
[2025-02-21] MEDS: PROPRANOLOL HCL 60 MG LA CAP PO SCH (20:33)
[2025-02-22] MEDS: LEVOTHYROXINE SODIUM 100 MCG TABLET PO SCH (05:42)
[2025-02-22 06:08] LABS: Basophils # (auto) 0.01 K/uL (0.00-0.20); Basophils % (auto) 0.1 %; Eosinophils # (auto) 0.01 K/uL (0.00-0.50); Eosinophils % (auto) 0.1 %; Hematocrit (blood only) 34.4 % (37.0-47.0); Hemoglobin 11.8 g/dl (12.0-16.0); Immature Granulocytes # (auto) 0.03 K/uL (0.01-0.20); Immature Granulocytes % (auto) 0.3 %; Lymphocytes # (auto) 1.35 K/uL (1.20-3.40); Lymphocytes % (auto) 12.8 %; Mean Corpuscular Hemoglobin 31.5 pg (25.0-34.0); Mean Corpuscular Hgb Conc 34.3 g/dL (32.0-36.0); Mean Corpuscular Volume 91.7 fL (80.0-100.0); Mean Platelet Volume 10.1 fL (9.4-12.4); Monocytes % (auto) 10.4 %; Neutrophils # (auto) 8.05 K/uL (1.40-6.50); Neutrophils % (auto) 76.3 %; Platelet Count 229 K/uL (130-400); RDW Coefficient of Variation 12.2 % (11.5-14.5); RDW Standard Deviation 40.9 fL (36.4-46.3); Red Blood Count 3.75 M/uL (4.20-5.40); White Blood Count 10.55 K/ul (4.8-10.8)
[2025-02-22 06:24] LABS: Albumin Globulin Ratio 1.3 (0.9-2); Albumin Level 3.5 gm/dl (3.4-5.0); BUN Creatinine Ratio 34.4 (10-20); Bilirubin,Total 0.3 mg/dl (0.2-1.0); Calcium 8.3 mg/dl (8.6-10.3); Creatinine Clr Calc Pharmacy 129.2 ml/min; Globulin 2.7 gm/dl (2.5-4.0); Potassium 3.9 mmol/L (3.5-5.1); Total Protein 6.2 gm/dl (6.0-8.3)
--- NOTE | 2025-02-22 07:37 | XRay Report ---
EXAM: XR chest 1V portable CLINICAL HISTORY: pneumothorax TECHNIQUE: An X-ray image of the chest is obtained in 1 AP projection. COMPARISON: No prior studies are available for comparison. FINDINGS: Pulmonary Parenchyma: Lucency is seen in the right apical region likely artifactual however clinical correlation and follow up is advised to rule out pneumothorax Left basal faint opacity with obscured costophrenic angle. Bilateral more left prominent hilar bronchial markings. No evidence of consolidation, collapse, or focal opacities. No pulmonary nodules are identified. No evidence of pleural effusion or pleural thickening. Heart and Mediastinum: Heart size and shape are normal. No mediastinal widening or masses. No hilar or mediastinal lymphadenopathy. Bony Thorax: Bony thorax appears intact without fractures or deformities. Soft Tissues: Soft tissues overlying the chest wall are unremarkable. IMPRESSION: 1. Lucency is seen in the right apical region likely artifactual however clinical correlation and follow up is advised to rule out pneumothorax. 2. Left basal faint opacity with obscured costophrenic angle, suggesting mild effusion with basal edema/ post inflammatory. Clinical lab correlation is advised. Electronically signed by Christopher Gudino 02-22-2025 07:36 AM
[2025-02-22] MEDS: ACETAMINOPHEN 325 MG TAB PO PRN (07:41)
[2025-02-22] MEDS: hydroCHLOROthiazide 25 MG TAB PO SCH (07:43)
[2025-02-22] MEDS: PANTOprazole 40 MG TAB PO SCH (07:43)
[2025-02-22] MEDS: [UNRECOGNIZED DRUG - REMARK] PO SCH (07:45)
[2025-02-22 08:08] VITALS: BP 112/75; PULSE 74; RESP 20; TEMP 97.9; O2SAT 97
--- NOTE | 2025-02-22 08:42 | Surgery Progress Note ---
Date of Service February 22, 2025 Assessment & Plan (1) Hx laparoscopic cholecystectomy: Plan: Patient is post op day one Lap flor with intraoperative pneumothorax She has remained asymptomatic since extubation yesterday a follow up cxr yesterday afternoon showed improvement in pneumothorax and repeat this am also with improvement Patient is saturating 95 % on RA, VSS tolerating reg diet without n/v pt is stable for d/c f/u op in 1-[address] Florian pt seen and examined with Dr Florian Admission and Anticipated Discharge Date Admission Date: February 21, 2025 Subjective pt reports she is doing well denies resp complaints Review of Systems Constitutional: no fever and no chills Respiratory: no dyspnea Cardiovascular: no chest pain Gastrointestinal: + abdominal pain; no nausea and no vomit ing Physical Exam Constitutional: cooperative and comfortable; no acute distress Respiratory: normal respiratory effort and able to speak in complete sentences; no respiratory distress Cardiovascular: Rate/Rhythm: regular rate Gastrointestinal (Abdomen): Inspection/Auscultation: abdomen not distended Results & Data Vital Signs (Past 12 Hours) Vital Signs Temp Pulse Pulse Resp BP Pulse Ox O2 Del Method 02/22/25 08:08 97.9 F 74 20 112/75 97 Room Air 02/22/25 07:11 70 02/22/25 03:21 98.2 F 86 19 138/86 96 Room Air 02/21/25 23:56 89 02/21/25 23:33 98.2 F 85 18 138/90 95 Room Air Results CBC w Diff Results: RBC 3.75 M/uL (4.20-5.40) L 02/22/25 WBC 10.55 K/ul (4.8-10.8) 02/22/25 Hgb 11.8 g/dl (12.0-16.0) L 02/22/25 Hct 34.4 % (37.0-47.0) L 02/22/25 MCV 91.7 fL (80.0-100.0) 02/22/25 MCH 31.5 pg (25.0-34.0) 02/22/25 MCHC 34.3 g/dL (32.0-36.0) 02/22/25 RDW Standard Deviation 40.9 fL (36.4-46.3) 02/22/25 RDW Coefficient of Variation 12.2 % (11.5-14.5) 02/22/25 Plt Count 229 K/uL (130-400) 02/22/25 MPV 10.1 fL (9.4-12.4) 02/22/25 Neutrophils (%) (Auto) 76.3 % 02/22/25 Lymphocytes (%) (Auto) 12.8 % 02/22/25 Monocytes # (Auto) 1.10 K/uL (0.11-0.59) H 02/22/25 Eosinophils # (Auto) 0.01 K/uL (0.00-0.50) 02/22/25 Immature Granulocyte % (Auto) 0.3 % 02/22/25 Neutrophils # (Auto) 8.05 K/uL (1.40-6.50) H 02/22/25 Lymphocytes # (Auto) 1.35 K/uL (1.20-3.40) 02/22/25 Monocytes # (Auto) 1.10 K/uL (0.11-0.59) H 02/22/25 Eosinophils # (Auto) 0.01 K/uL (0.00-0.50) 02/22/25 Basophils # (Auto) 0.01 K/uL (0.00-0.20) 02/22/25 Immature Granulocyte # (Auto) 0.03 K/uL (0.01-0.20) 5 Results CMP Results: Sodium 137 mmol/L (136-145) 02/22/25 Potassium 3.9 mmol/L (3.5-5.1) 02/22/25 Chloride 105 mmol/L (98-107) 02/22/25 Carbon Dioxide 29 mmol/L (21-32) 02/22/25 Anion Gap 3 (3-11) 02/22/25 BUN 21 mg/dl (6-23) 02/22/25 Creatinine 0.61 mg/dl (0.6-1.2) 02/22/25 eGFR 110.21 02/22/25 Est GFR ( Amer) 121.3 ml/min 01/19/24 Est GFR (Non-Af Amer) 104.7 ml/min 01/19/24 BUN/Creatinine Ratio 34.4 (10-20) H 02/22/25 Glucose 120 mg/dl (70-99(Fasting)) H 02/22/25 Calcium 8.3 mg/dl (8.6-10.3) L 02/22/25 Total Bilirubin 0.3 mg/dl (0.2-1.0) 02/22/25 Direct Bilirubin < 0.1 mg/dl (0-0.2) 02/28/20 AST 60 U/L (13-39) H 02/22/25 ALT 52 U/L (7-52) 02/22/25 Alkaline Phosphatase 60 U/L (34-104) 02/22/25 Total Protein 6.2 gm/dl (6.0-8.3) 02/22/25 Albumin 3.5 gm/dl (3.4-5.0) 02/22/25 Globulin 2.7 gm/dl (2.5-4.0) 02/22/25 Albumin/Globulin Ratio 1.3 (0.9-2) 02/22/25 Lactate Dehydrogenase 137 U/L (84-246) 02/28/20 PG Care Time/CCT Total # of Minutes Spent Total Time Spent with Patient: Total time spent is greater than 50% in coordination of care (as documented) at patient's floor/unit and/or counseling patient: Coding Level of Care Code 91814 Post Operative Follow-Up Diagnoses Hx laparoscopic cholecystectomy Z90.49
--- NOTE | 2025-02-25 11:06 | Discharge Summary ---
Date of Service February 22, 2025 Principal Diagnosis Gallbladder Calculus; suspected endometriosis; iatrogenic diaphragmatic injury with pneumothorax; distal esophagitis Upper Abdominal pain, Nausea Discharge Exam Constitutional cooperative and comfortable; no acute distress Respiratory normal respiratory effort and able to speak in complete sentences; no respiratory distress Cardiovascular Rate/Rhythm: regular rate Gastrointestinal (Abdomen) Inspection/Auscultation: abdomen not distended Discharge Data Allergies Allergy/AdvReac Type Severity Reaction Status Date / Time indomethacin Allergy Severe Rash Verified 02/21/25 07:01 citalopram [From Celexa] AdvReac Severe "crawling Verified 02/21/25 07:01 out of skin" procaine AdvReac Severe Nausea/Vomi Verified 02/21/25 07:01 ting hydrocodone AdvReac Intermediate "crawling Verified 02/21/25 07:01 out of skin" lamotrigine [From Lamictal] AdvReac Mild rash Verified 02/21/25 07:01 Procedures Performed Operation Date: 02/21/25 08:15 Actual Procedures p Laparoscopic Cholecystectomy, repair of diaphragmatic injury, biopsy of distal esophagus, ablation of endometriosis, peritoneal biopsy(Not Applicable) - Win Florian DO s Intraoperative Esophagogastroduodenoscopy(Not Applicable) - Win Florian DO Hospital Course (1) Hx laparoscopic cholecystectomy: This is a 49 yo female who presented to the [facility] for an elective laparoscopic cholecystectomy with Dr Florian on 02/21/25. The patient tolerated the procedure well, see operative report for full details. Post operatively the patient's diet was advanced, pain managed on prn meds, and incisions clean/dry/intact. The patient was admitted for overnight observation for monitoring of respiratory status secondary to an intraoperative pneumothorax. On POD#1 02/22/25 the patient was deemed stable for discharge to home without complaints of chest pain, shortness of breath, VSS, and maintaining oxygen saturations at 97% on room air and CXR showing improvement in pneumothorax. The patient was given discharge instructions, follow up recommendations, return precautions and a prescription for narcotic pain medication. Total Time Total Time Spent Total Time Spent (In Minutes): 10 Discharge Plan Discharge Items Patient Disposition: Home - Self-Care Reason For Visit: Gallbladder Calculus w/ Acute Cholecystitis, GERD, Discharge Diagnosis: laparoscopic cholecystectomy EGD Activity: Per Instructions section Lifting: No more than 10 pounds Bathing Comment: you can shower, no soaking in pools/baths for 2 weeks Non-emergency contact: Surgeon Call non-emergency contact if: you have any medication questions, your symptoms worsen, your pain is unusual for you, your temperature is above 101.5, your wound has increased redness, your wound has increased drainage and your wound pain has increased Follow-up/Referrals: Win Florian, [Surgeon] - (please call to schedule follow up in the office in 2 weeks) Jojo Quigley PA-C [Primary Care Provider] - 03/05/25 11:20 am (Hospital follow up scheduled March 05 at 11:20) Diet: Regular Addtl Attending Provider Instructions: SPECIAL CARE INSTRUCTIONS: * You have skin glue over your incisions called dermabond. you may shower with this on. It will tend to dissolve and fall off within a couple weeks. Do not pick at the skin glue * You may shower 5/3 . NO soaking in pools or baths for 2 weeks * No lifting greater than 10lbs. No strenuous exercise until cleared by surgeon. Light walking is accepted. * No driving while taking narcotic pain medication; wait at least 3 days * No drinking alcohol while taking narcotic pain medication Do not take your tramadol while taking oxycodone. If you experience chest pain, shortness of breath go the emergency room * May use Ibuprofen/Tylenol over the counter for pain as tolerated. Do not exceed 3grams of Tylenol per 24 hours * Expect some swelling and bruising. * Diet- you may resume your regular diet Call your doctor if: * Temperature above 101 degrees, nausea/vomiting, fever/chills * Pain not relieved by pain medicine ordered * There is increased drainage or redness from any incision * You have any unanswered questions or concerns [phone]. FOLLOW UP VISIT: If not already scheduled, please call the office for a follow-up visit. Office Pending Studies at Discharge: Yes Studies:: surgical pathology Stand-Alone Forms: [facility] Medications and DC Order Prescriptions: New oxycodone 5 mg tablet 5 - 10 mg PO .[id number] MDD no more than 6 tabs in 24hours PRN (Reason: pain) Qty: 15 0RF Continued cetirizine [Zyrtec] 10 mg tablet 10 mg PO DAILY PRN (Reason: allergy relief) montelukast [Singulair] 10 mg tablet 10 mg PO DAILY PRN (Reason: allergies) naltrexone 1.5 mg capsule 4.5 mg PO HS cyclobenzaprine 10 mg tablet 10 mg PO BID PRN (Reason: muscle spasm) Qty: 60 1RF naproxen 500 mg tablet 500 mg PO BID Qty: 180 2RF levothyroxine 100 mcg capsule 100 mcg PO QAM tofacitinib 11 mg tablet extended release 24 hr 11 mg PO QAM propranolol 120 mg capsule,extended release 24hr 120 mg PO HS Emgality Pen 120 mg/mL pen injector 120 mg subcut MONTHLY Rx Instructions: Migraines meloxicam 15 mg tablet 15 mg PO DAILY PRN (Reason: Pain) cyanocobalamin (vitamin B-12) 1,000 mcg/mL solution 1,000 mcg IM MONTHLY magnesium 250 mg Tablet 450 mg PO HS colchicine 0.6 mg tablet 0.6 - 1.2 mg PO DAILY PRN (Reason: gout) eletriptan 40 mg tablet 40 mg PO UD PRN (Reason: migraines) Probiotic 10 billion cell Capsule 10,000 mmu cells PO DAILY Hair, Skin and Nails (biotin) 10,000 mcg Tablet,Chewable 10,000 mcg PO DAILY Mag 7 1 unit 1 tab PO HS Med Choice 1 unit 1 tab PO DAILY omeprazole 40 mg capsule,delayed release(DR/EC) 40 mg PO QAM Rx Instructions: future refills per PCP hydrochlorothiazide 12.5 mg tablet 12.5 mg PO QAM Held tramadol 50 mg tablet 50 mg PO TID PRN (Reason: Pain) Hold Instructions: Resume on 02/26/25. Do not take tramadol with Oxycodone Discharge Orders: Discharge Order (Routine); Ordered 02/22/25 Ordered By: Brayan Jay Admission Data Admit Date/Time: 02/21/25 09:32 Attending Provider: Win Florian Admit Provider: Win Florian Primary Care Provider: Jojo Quigley Other Interventions: Discharge Summary Assessment (RN) Last Done: 02/22/25 09:50 Coding Level of Care Code 65203 IN/OBS DISCH 30 MIN/LESS Diagnoses Hx laparoscopic cholecystectomy Z90.49
== END 2025-02-22 10:17 | disposition home or self-care (01) ==
LOC: 4W 06:42 → ASU 06:42
DX: K20.90 Esophagitis, unspecified without bleeding; Z88.5 Allergy status to narcotic agent; N80.9 Endometriosis, unspecified; Z88.8 Allergy status to other drugs, medicaments and biological substances; K80.10 Calculus of gallbladder with chronic cholecystitis without obstruction; K21.9 Gastro-esophageal reflux disease without esophagitis; N20.0 Calculus of kidney; R13.10 Dysphagia, unspecified; Z79.899 Other long term (current) drug therapy; Z79.890 Hormone replacement therapy